=== PATIENT | male | born 1935 | race Caucasian/White ===

== ENCOUNTER 2018-08-13 13:44 | Observation (INO) | payer OTHER ==
[2018-08-13 13:57] VITALS: BMI 29.3
--- NOTE | 2018-08-13 14:43 | PDOC ---
History of Present Illness - General Chief Complaint: Weakness Stated Complaint: SENT BY PCP Time Seen by Provider: 08/13/18 14:41 - History of Present Illness Initial Comments: 08/13/18 15:59 83 year old man with a history of episodic dizziness, w/ carotid artery stenosis , GERD, HLD, HTN, Gout, BPH, Afib, choledocolithiasis, DM2, prior lumbosacral disc degeneration s/p surgical repair who presents from PCP with complaints of dizziness, weakness/ heaviness in the legs and arms ongoing for months but worse over the past week. Two nights ago the patient was unable to make it to the bathroom to urinate overnight, he states that his legs felt heavy and he "could not make it in time." The patient walks with a cane at baseline due to feelings of unsteadiness. He denies unilateral symptoms of weakness and states that both arms feel weak and both legs feel heavy. At bedside he admits to constipation and some weakness but denies headaches, dizziness, nausea, chest pain, shortness of breath, abdominal pain, dysuria, hematuria or diarrhea. Per daughter PCP Dalia was concerned by the story and had wanted to get a head CT. Patient has not taken his diltiazem, metoprolol, allopurinol for the past two days, because he did not feel that he needed them at the time. PCP: Dalia Meds: Glipizide 5mg, simvastatin 10mg, metoprolol bid, warfarin 2mg bid, diltiazem 180mg, allopurinol 100mg, colchicine Past History - Past Medical History Allergies/Adverse Reactions: Allergies Allergy/AdvReac Type Severity Reaction Status Date / Time No Known Allergies Allergy Verified 08/13/18 18:20 Home Medications: Ambulatory Orders Diltiazem Cd [Cardizem Cd -] 180 mg PO DAILY #30 cap.cd.24h 01/25/14 Allopurinol [Zyloprim -] 100 mg PO DAILY 02/25/14 Simvastatin [Zocor -] 10 mg PO HS 02/25/14 Warfarin Na [Coumadin -] 2 mg PO BID 02/25/14 Glipizide [Glucotrol -] 5 mg PO DAILY #30 tablet 11/18/14 Metoprolol Succinate [Toprol XL -] 25 mg PO BID 11/24/15 Prednisone 10 mg PO DAILY 11/24/15 Finasteride [Proscar] 5 mg PO DAILY 08/13/18 Fluticasone Prop 0.05% Nasal [Flonase -] 1 - 2 spray NS BID 08/13/18 Pioglitazone HCl 15 mg PO DAILY 08/13/18 Anemia: No Asthma: No Cancer: No Cardiac Disorders: Yes (A FIB) CVA: No COPD: No CHF: No Dementia: No Diabetes: Yes (Borderline) GI Disorders: Yes (gerd) Disorders: No HTN: Yes Hypercholesterolemia: Yes Liver Disease: No Seizures: No Thyroid Disease: No - Surgical History Abdominal Surgery: No Appendectomy: No Cardiac Surgery: Yes (Carotid) Cholecystectomy: Yes Lung Surgery: No Neurologic Surgery: Yes (laminectomy) Orthopedic Surgery: Yes (Back) - Suicide/Smoking/Psychosocial Hx Smoking Status: No Smoking History: Never smoked Have you smoked in the past 12 months: No Number of Cigarettes Smoked Daily: 0 If you are a former smoker, when did you quit?: 2016 Cigars Per Day: 1 Information on smoking cessation initiated: No 'Breaking Loose' booklet given: 01/16/14 Hx Alcohol Use: No Drug/Substance Use Hx: No Substance Use Type: None Hx Substance Use Treatment: No *Physical Exam - Vital Signs Last Vital Signs Temp Pulse Resp BP Pulse Ox 98.3 F 74 20 142/70 96 08/13/18 13:54 08/13/18 13:54 08/13/18 13:54 08/13/18 13:54 08/13/18 13:54 - Physical Exam Comments: 08/13/18 16:11 unremarkable exam walks with cane Moderate Sedation - Procedure Monitoring Vital Signs: Procedure Monitoring Vital Signs Temperature 98.3 F 08/13/18 13:54 Pulse Rate 74 08/13/18 13:54 Respiratory Rate 20 08/13/18 13:54 Blood Pressure 142/70 08/13/18 13:54 O2 Sat by Pulse Oximetry (%) 96 08/13/18 13:54 ED Treatment Course - LABORATORY CBC & Chemistry Diagram: 08/13/18 15:15 08/13/18 15:15 Medical Decision Making - Medical Decision Making 08/13/18 16:05 83 year old man with a history of episodic dizziness, w/ carotid artery stenosis , GERD, HLD, HTN, Gout, BPH, Afib, choledocolithiasis, DM2, prior lumbosacral disc degeneration s/p surgical repair who presents from PCP with complaints of dizziness, weakness/ heaviness in the legs and arms ongoing for months but worse over the past week. Two nights ago the patient was unable to make it to the bathroom to urinate overnight, he states that his legs felt heavy and he "could not make it in time." The patient walks with a cane at baseline due to feelings of unsteadiness. He denies unilateral symptoms of weakness and states that both arms feel weak and both legs feel heavy. ED Course: consider electrolyte abnormality vs infectious vs influenza r/o intracranial mass vs bleed however less likely as patient without neuro deficit on exam. However patient on coumadin and did not take his metoprolol, diltiazem and allopurinol for the past 2 days. 08/13/18 18:28 EKG: new T wave inversions in II, aVF, V1, V2, V3, V5, V6 prior EKG in 2014. cardiac enzymes added CXR: unremarkable labwork: INR 2.49, elevated BUN and Cr, prerenal UMU influenza negative Will need to admit for tele obs, for presyncope and new T wave inversions 08/13/18 20:26 trop negative, ua negative Patient admitted to medicine *DC/Admit/Observation/Transfer Diagnosis at time of Disposition: Pre-syncope, T wave inversion in EKG - Discharge Dispostion Condition at time of disposition: Fair Decision to Admit order: Yes - Referrals Referrals: Elmer Gómez MD [Primary Care Provider] - - Patient Instructions - Post Discharge Activity
[2018-08-13 15:27] LABS: BASO % 0.7 % (0-2.0); EOS % 2.5 % (0-4.5); HEMATOCRIT 45.4 % (35.4-49); HEMOGLOBIN 15.8 GM/dL (11.7-16.9); LYMPH % 15.3 % (8-40); MCH 31.5 pg (25.7-33.7); MCHC 34.9 g/dl (32.0-35.9); MEAN CELL VOLUME 90.4 fl (80-96); MEAN PLT VOLUME 8.9 fl (7.5-11.1); MONO % 9.8 % (3.8-10.2); NEUT % 71.7 % (42.8-82.8); PLATELET COUNT 120 K/MM3 (134-434); RBC 5.02 M/mm3 (4.00-5.60); RDW 15.1 % (11.9-15.9); WHITE BLOOD COUNT 10.2 K/mm3 (4.0-10.0)
[2018-08-13 15:55] LABS: ALBUMIN 3.1 g/dl (3.4-5.0); ALK PHOS 96 U/L (45-117); ANION GAP 6 MMOL/L (8-16); BILIRUBIN,TOTAL 1.5 mg/dL (0.2-1); BLOOD UREA NITROGEN 45 mg/dL (7-18); CALCIUM 8.7 mg/dL (8.5-10.1); CHLORIDE 105 mmol/L (98-107); CO2 30 mmol/L (21-32); CREATININE 2.1 mg/dL (0.55-1.3); GLUCOSE,RANDOM 83 mg/dL (74-106); POTASSIUM 3.5 mmol/L (3.5-5.1); SGOT/AST 18 U/L (15-37); SGPT/ALT 56 U/L (13-61); SODIUM 141 mmol/L (136-145)
--- NOTE | 2018-08-13 16:27 | PDOC ---
Attending Attestation - HPI HPI: 08/13/18 16:30 The patient is a 83 year old male with a significant medical history of episodic dizziness, w/ carotid artery stenosis, GERD, HLD, HTN, Gout, BPH, Afib , choledocolithiasis, DM2, prior lumbosacral disc degeneration s/p surgical repair who presents from PCP with complaints of dizziness, weakness/ heaviness in the legs and arms ongoing for months but worse over the past weeks. The patient walks with a cane at baseline due to feelings of unsteadiness. Secondarily, he reports increased urinary frequency and urgency. Per daughter PCP Dalia was concerned by the story and had wanted to get a head CT. Patient has not taken his diltiazem, metoprolol, allopurinol for the past two days, because he did not feel that he needed them at the time. He denies CP, SOB, palpitations. He denies dysuria. He denies any other symptoms. PCP: Dalia - Physicial Exam PE: 08/13/18 16:31 Constitutional: Awake, alert, oriented. No acute distress. Head: Normocephalic. Atraumatic Eyes: PERRL. EOMI. Conjunctivae are not pale. 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 Mucous membranes are moist and intact. Posterior pharynx without exudates or erythema. Uvula midline. Neck: Supple. Full ROM. No lymphadenopathy. Cardiovascular: Regular rate. Regular rhythm. S1, S2 regular. Distal pulses are 2+ and symmetric. Pulmonary/Chest: No evidence of respiratory distress. Clear to auscultation bilaterally No wheezing, rales or rhonchi. Abdominal: Soft and non-distended. There is no tenderness. No rebound, guarding or rigidity. No organomegaly. No palpable masses. Good bowel sounds. Back: No CVA tenderness. Musculoskeletal: No edema. No cyanosis. No clubbing. Full range of motion in all extremities. Nocalf tenderness. Radial/pedal pulses are intact and 2+ bilaterally Skin: (+) lumbar spine incision well healed. No erythema, fluctuance, warmth or tenderness.Skin is warm and dry. No petechiae. No purpura. Neurological: Alert and oriented to person, place, and time. Cranial nerves II -XII are grossly intact. Normal speech. 5/5 MS in upper and lower extremities. sensation intact. Able to hold lower extremities against gravity and resistance. Strength is grossly symmetric. No sensory deficits. Psychiatric: Good eye contact. Normal interaction, affect and behavior. <Lesley Sosa - Last Filed: 08/13/18 16:43> - Resident Resident Name: AnkitkacyChioma - ED Attending Attestation I have performed the following: I have examined & evaluated the patient, The case was reviewed & discussed with the resident, I agree w/resident's findings & plan, Exceptions are as noted - Medical Decision Making 08/13/18 16:26 I, Dr. Lianna Poe DO, attest that this document has been prepared under my direction and personally reviewed by me in its entirety. I further attest, that it accurately reflects all work, treatment, procedures and medical decision -making performed by me. 08/13/18 18:19 a/p: 83yo male with generalized weakness and b/l leg heaviness presents from Dr. Gómez for further eval -new ekg t wave inversions as compared to 2015 -neuro intact -no midline ttp in back -no signs of caude equina -urinary freq -will send labs, ua -will send trop given ekg changes and weakness -will need obs overnight for further eval 08/13/18 21:30 labs reviewed ua negative for uti will place in obs for further eval of generalized weakness resident discussed the case with SYMPHONY who accepts pt to service <Lianna Poe - Last Filed: 08/13/18 21:31> Heart Score/ECG Review - ECG Intrepretation Comment:: 08/13/18 18:18 sinus at 76, nl axis, t wave inversions II, III, avf, rbbb, t wave inversions V4 -6- abnl ekg <Lianna Poe - Last Filed: 08/13/18 21:31> Attestations - Attestations 08/13/18 16:32 Documentation prepared by Lesley Sosa, acting as spanish medical interpreter for Lianna Poe DO, <Lesley Sosa - Last Filed: 08/13/18 16:43>
[2018-08-13 16:39] LABS: PLATELET ESTIMATE SLT DECREASE
[2018-08-13 16:57] LABS: INR 2.49 (0.83-1.09); PROTHROMBIN TIME (PATIENT) 29.6 SEC (9.7-13.0)
[2018-08-13 17:10] LABS: ACTIVATED PTT 46.2 SECONDS (25.2-36.5)
[2018-08-13 19:52] LABS: URINE APPEARANCE SLCLOUDY; URINE BILIRUBIN NEGATIVE (<2.0 mg/dL); URINE COLOR DKYELLOW; URINE GLUCOSE (UA) NEGATIVE (NEGATIVE); URINE KETONE NEGATIVE (NEGATIVE); URINE LEUK ESTERASE NEGATIVE (NEGATIVE); URINE NITRITE NEGATIVE (NEGATIVE); URINE PROTEIN 2+ (NEGATIVE)
[2018-08-13 20:16] LABS: URINE MUCUS RARE
--- NOTE | 2018-08-13 21:44 | PN ---
Teaching Attending Note Name of Resident: Lexi Green ATTENDING PHYSICIAN STATEMENT I saw and evaluated the patient. I reviewed the resident's note and discussed the case with the resident. I agree with the resident's findings and plan as documented. SUBJECTIVE: Seen and examined; please refer to resident note for further historical documentation. Briefly, this is a 83 y/o male presenting with months of of LE heaviness that has been worsening somewhat over the past few weeks. Nothing makes it better or worse; not weak, persay, and no localizing neuro sx. Never happened before, no new meds, no trauma. He did have some associated incontinence at home but it was because his legs felt too heavy to get out of bed; negative rectal exam and he has no loss of bowel or bladder function. He has been compliant with his medications at home. CT head negative in the ER. Has not taken home meds in [address] Gómez spoke with ER. 10 sys ROS done and negative aside from HPI PMH reviewed(Afib, ETHAN, HTN, HLD, Gout, BPH, Afib, choledocholithiasis, DM, lumbosacral disease s/p repair) OBJECTIVE: VS, labs, imaging reviewed NAD, AAO, resting comfortably in bed. NIHSS 0. 5/5 b/l LE strength, 5/5 b/l UE strength, normal muscle tone, no issues with ROM. CN2-12 wnl, no issues with sensorium. RRR s1/2 no mgr Lungs CTAB w/ sym exp NT ND +BS CN2-12 wnl, no fnd Normal mood, appropriate behavior CT head without acute findings MRI lower spine pending EKG pending Labs show therapeutic INR, slight leukocytosis ASSESSMENT AND PLAN: Patient presents after being sent in by his PCP for b/l leg heaviness x3 weeks, knee pain on and off for years. 1) B/L Leg Heaviness and knee pain -Unclear etiology; procedure hx reviewed. Can check MRI lower spine due to the aforementioned with the prior fixation, as well as check B12, ESR -Checking vascular studies to r/o peripheral arterial disease -If said workup is negative, consider potential physiatry or neuro consultation inpt vs. outpt. PT has been ordered, Fall precautions. 2) Afib -Nonacute; continue home medications and monitor INR. 3) Hx PV Th 4) Hx SEGUN 5) HTN -Continue; monitor BP 6) HLD -Continue home med 7) DM -Hold PO; SSI 8) BPH -Continue finasteride 9) Hx ETHAN -Noted; checking for LE vascular disease given presenting sx and history 11) Elevated Bili -Has been high in the past; trend. Consider RUQ US if remains elevated compared to OP records 12) T-wave changes -Completely asx in terms of cardiac sx with negative troponins. Furthermore this is a high risk man with multiple comorbidities and he has reasons to have had his EKG have changes over the past several years. We don't have any recent studies. We will alert his PCP to these changes and compare them with any old records from the office when they become available in the morning. If these represent significant changes from recent study then it would be reasonable to consult cardiology 13) UMU on CKD vs. Worsening CKD -Cr is slightly higher than it was in the past but the last check was 2014. Monitor BMP and UOP. Consider gentle hydration overnight FENA -PO fluids -PRN replete -Cardiac Diet -BR w/ BRP until MRI then as tolerated with PT consult
--- NOTE | 2018-08-13 21:49 | HP ---
CHIEF COMPLAINT: leg weakness PCP: Dr. Gómez HISTORY OF PRESENT ILLNESS: 83 y/o male with PMH of HTN, HLD, GERD, Afib, BPH, carotid artery stenosis, borderline DM, presents to the ED with a one week history of progressive weakness/heaviness in his legs. He states that his legs have felt very heavy and weak, almost the point where he was not able to get out of bed to use the bathroom that he went to the bathroom in his bed. he denies any numbness or tingling with his legs. he denies any recent travel or recent illnesses. patient states that he uses a walker only when he needs to and states that he felt he had been using it more frequently in the past week. ER course was notable for: (1) + orthostatic vital signs : laying 148/80; sitting 114/80 (2)CR : 2.1- previous was 1.8 (3) EKG new t wave inversions in 2,3, avf v3-v6 (previous EKG was from 2013 not showing these findings) Recent Travel: denies PAST MEDICAL HISTORY: see above PAST SURGICAL HISTORY: laminectomy; CEA Social History: Smoking: quit cigarette smoking 10 years ago; chews cigars daily Alcohol: social alcohol use Drugs: denies Family History: denies Allergies No Known Allergies Allergy (Verified 08/13/18 18:20) HOME MEDICATIONS: Home Medications Medication Instructions Recorded Diltiazem Cd [Cardizem Cd -] 180 mg PO DAILY #30 cap.cd.24h 01/25/14 Allopurinol [Zyloprim -] 100 mg PO DAILY 02/25/14 Simvastatin [Zocor -] 10 mg PO HS 02/25/14 Warfarin Na [Coumadin -] 2 mg PO BID 02/25/14 Glipizide [Glucotrol -] 5 mg PO DAILY #30 tablet 11/18/14 Metoprolol Succinate [Toprol XL -] 25 mg PO BID 11/24/15 Prednisone 10 mg PO DAILY 11/24/15 Finasteride [Proscar] 5 mg PO DAILY 08/13/18 Fluticasone Prop 0.05% Nasal 1 - 2 spray NS BID 08/13/18 [Flonase -] Pioglitazone HCl 15 mg PO DAILY 08/13/18 REVIEW OF SYSTEMS CONSTITUTIONAL: Present: generalized weakness, Absent: fever, chills, diaphoresis malaise, loss of appetite, weight change HEENT: Absent: rhinorrhea, nasal congestion, throat pain, throat swelling, difficulty swallowing, mouth swelling, ear pain, eye pain, visual changes CARDIOVASCULAR: Absent: chest pain, syncope, palpitations, irregular heart rate, lightheadedness , peripheral edema RESPIRATORY: Absent: cough, shortness of breath, dyspnea with exertion, orthopnea, wheezing, stridor, hemoptysis GASTROINTESTINAL: Absent: abdominal pain, abdominal distension, nausea, vomiting, diarrhea, constipation, melena, hematochezia GENITOURINARY: Absent: dysuria, frequency, urgency, hesitancy, hematuria, flank pain, genital pain MUSCULOSKELETAL: Absent: myalgia, arthralgia, joint swelling, back pain, neck pain SKIN: Absent: rash, itching, pallor HEMATOLOGIC/IMMUNOLOGIC: Absent: easy bleeding, easy bruising, lymphadenopathy, frequent infections ENDOCRINE: Absent: unexplained weight gain, unexplained weight loss, heat intolerance, cold intolerance NEUROLOGIC: Absent: headache, focal weakness or paresthesias, dizziness, unsteady gait, seizure, mental status changes, bladder or bowel incontinence PSYCHIATRIC: Absent: anxiety, depression, suicidal or homicidal ideation, hallucinations. PHYSICAL EXAMINATION Vital Signs - 24 hr 08/13/18 08/13/18 13:54 19:01 Temperature 98.3 F 98.0 F Pulse Rate 74 Pulse Rate [ 84 Right] Respiratory 20 18 Rate Blood Pressure 142/70 Blood Pressure 164/99 [Left Arm] O2 Sat by Pulse 96 99 Oximetry (%) GENERAL: Awake, alert, and fully oriented, in no acute distress. EYES:EOMI; PEERLA; no scleral icterus NECK: no JVD, no lymphadneopathy LUNGS: CTA B/L; no rales, rhonchi or wheezing HEART: Regular rate and rhythm, normal S1 and S2 without murmur, rub or gallop. ABDOMEN: Soft, nontender, not distended, normoactive bowel sounds, no guarding, no rebound, no masses. No hepatomegaly or splenomegaly. MUSCULOSKELETAL: Normal range of motion at all joints. No bony deformities or tenderness. No CVA tenderness. EXTREMITIES: cold B/L ; no edema, + posterior tibialis pulses, weakened dorsalis pedis pulses NEUROLOGICAL: Cranial nerves II-XII intact. Normal speech. Normal gait 5/5 strength in B/L upper and lower extremitites; sensation intact B/L; reflexes intact B/L PSYCHIATRIC: Cooperative. Good eye contact. Appropriate mood and affect. SKIN: Warm, dry, normal turgor, no rashes or lesions noted, normal capillary refill. Laboratory Results - last 24 hr 08/13/18 08/13/18 08/13/18 15:15 15:15 16:14 WBC 10.2 H RBC 5.02 Hgb 15.8 Hct 45.4 D MCV 90.4 MCH 31.5 MCHC 34.9 RDW 15.1 Plt Count 120 L D MPV 8.9 Absolute Neuts (auto) 7.3 Neutrophils % 71.7 Lymphocytes % 15.3 D Monocytes % 9.8 Eosinophils % 2.5 Basophils % 0.7 Nucleated RBC % 1 H Platelet Estimate Slt decrease Platelet Comment PT with INR INR PTT (Actin FS) Sodium 141 Potassium 3.5 Chloride 105 Carbon Dioxide 30 Anion Gap 6 L BUN 45 H Creatinine 2.1 H Creat Clearance w eGFR 30.17 Random Glucose 83 Calcium 8.7 Total Bilirubin 1.5 H AST 18 ALT 56 Alkaline Phosphatase 96 Troponin I 0.02 Total Protein 6.0 L Albumin 3.1 L Urine Color Urine Appearance Urine pH Ur Specific [place] Urine Protein Urine Glucose (UA) Urine Ketones Urine Blood Urine Nitrite Urine Bilirubin Urine Urobilinogen Ur Leukocyte Esterase Urine WBC (Auto) Urine RBC (Auto) Urine Mucus Influenza A (Rapid) Negative Influenza B (Rapid) Negative 08/13/18 08/13/18 16:24 16:30 WBC RBC Hgb Hct MCV MCH MCHC RDW Plt Count MPV Absolute Neuts (auto) Neutrophils % Lymphocytes % Monocytes % Eosinophils % Basophils % Nucleated RBC % Platelet Estimate Platelet Comment PT with INR 29.60 H INR 2.49 H PTT (Actin FS) 46.2 H Sodium Potassium Chloride Carbon Dioxide Anion Gap BUN Creatinine Creat Clearance w eGFR Random Glucose Calcium Total Bilirubin AST ALT Alkaline Phosphatase Troponin I Total Protein Albumin Urine Color Dkyellow Urine Appearance Slcloudy Urine pH 5.0 Ur Specific [place] 1.018 Urine Protein 2+ H Urine Glucose (UA) Negative Urine Ketones Negative Urine Blood 2+ H Urine Nitrite Negative Urine Bilirubin Negative Urine Urobilinogen 2.0 Ur Leukocyte Esterase Negative Urine WBC (Auto) 2 Urine RBC (Auto) 19 Urine Mucus Rare Influenza A (Rapid) Influenza B (Rapid) ASSESSMENT/PLAN: 83 y/o male with PMH of afib, DM, HTN, HLD, BPH, gout, carotid artery stenosis who presents to the ED with a 2 week history of heaviness and weakness in his legs #Lower extremity weakness etiology seems less neurological given findings on exam and possibly vascular related -duplex ultrasound ordered -FATEMEH -MRI for morning- need to confirm first if patients metal hardware in back are MRI compatible -Dr Mobley consulted -may need vascular consult depending on duplex results -TSH, B12, folate ordered -PT eval #Afib -patient on Coumadin 2mg #T wave inversions on EKG previous EKG from 2014 did not show these T wave inversions; unclear how long patient has had them -first trop negative; will continue to trend -cardiology consulted #Possible UMU on CKD -previous Cr was 1.8; unclear what his baseline is -monitor electrolytes -consider nephro consult? #HTN -c/w home medications #HLD -c/w home medications #DM -holding home regimen -ISS -BGMS ACHS #BPH -c/w home medications #Gout -c/w allopurinol F/E/N LR @42mls/hr monitor electrolytes cardiac diet DVT PPX: heparin Problem List - Problem (1) Pre-syncope Code(s): R55 - SYNCOPE AND COLLAPSE (2) T wave inversion in EKG Code(s): R94.31 - ABNORMAL ELECTROCARDIOGRAM [ECG] [EKG] Visit type - Emergency Visit Emergency Visit: Yes ED Registration Date: 08/13/18 Care time: The patient presented to the Emergency Department on the above date and was hospitalized for further evaluation of their emergent condition. - New Patient This patient is new to me today: Yes Date on this admission: 08/14/18 - Critical Care Critical Care patient: No
[2018-08-13] MEDS ORDERED: INSULIN REGULAR HUMAN 100 UNITS/ML *VIAL ONE (23:20)
[2018-08-13] MEDS: INSULIN SLIDING SCALE (NOVOLOG) 1 VIAL SQ SCH (23:22)
[2018-08-14] MEDS ORDERED: LACTATED RINGERS SOLUTION 1,000 ML/1,000 ML INFUS.BAG IV SCH (01:15)
[2018-08-14] MEDS ORDERED: HEPARIN NA (PORCINE) 5,000 UNITS/ML 1ML VIAL ONE ×2 (06:50→14:06)
[2018-08-14] MEDS: HEPARIN NA (PORCINE) 5,000 UNITS/ML 1ML VIAL SQ SCH ×3 (06:54→21:31)
[2018-08-14 07:00] LABS: BASO % 0.4 % (0-2.0); EOS % 1.6 % (0-4.5); HEMATOCRIT 44.1 % (35.4-49); HEMOGLOBIN 15.3 GM/dL (11.7-16.9); LYMPH % 14.1 % (8-40); MCH 31.2 pg (25.7-33.7); MCHC 34.6 g/dl (32.0-35.9); MEAN PLT VOLUME 9.4 fl (7.5-11.1); MONO % 9.1 % (3.8-10.2); NEUT % 74.8 % (42.8-82.8); PLATELET COUNT 134 K/MM3 (134-434); RDW 15.7 % (11.9-15.9); WHITE BLOOD COUNT 9.3 K/mm3 (4.0-10.0)
[2018-08-14] MEDS: INSULIN SLIDING SCALE (NOVOLOG) 1 VIAL SQ SCH ×4 (07:05→21:32)
[2018-08-14 07:39] LABS: ALBUMIN 2.8 g/dl (3.4-5.0); ALK PHOS 90 U/L (45-117); ANION GAP 8 MMOL/L (8-16); BILIRUBIN,TOTAL 1.3 mg/dL (0.2-1); BLOOD UREA NITROGEN 44 mg/dL (7-18); CALCIUM 7.8 mg/dL (8.5-10.1); CHLORIDE 106 mmol/L (98-107); CO2 27 mmol/L (21-32); CREATININE 1.8 mg/dL (0.55-1.3); GLUCOSE,RANDOM 66 mg/dL (74-106); MAGNESIUM 2.2 mg/dL (1.8-2.4); PHOSPHOROUS 3.7 mg/dL (2.5-4.9); POTASSIUM 3.3 mmol/L (3.5-5.1); SGOT/AST 21 U/L (15-37); SGPT/ALT 46 U/L (13-61); SODIUM 142 mmol/L (136-145); TOT PROT 5.7 g/dl (6.4-8.2)
--- NOTE | 2018-08-14 09:29 | CONSULT ---
Consult - text type - Consultation Consultation Note: Neurology CHIEF COMPLAINT: leg weakness PCP: Dr. Gómez HISTORY OF PRESENT ILLNESS: 83 y/o male with PMH of HTN, HLD, GERD, Afib, BPH, carotid artery stenosis, borderline DM, presents to the ED with a one week history of progressive weakness/heaviness in his legs. He states that his legs have felt very heavy and weak, almost the point where he was not able to get out of bed to use the bathroom that he went to the bathroom in his bed. he denies any numbness or tingling with his legs. he denies any recent travel or recent illnesses. patient states that he uses a walker only when he needs to and states that he felt he had been using it more frequently in the past week. CT head completed and without acute changes. Discussed with Dr. Giraldo, will rule out CVA, ordered MRI brain. MRI L spine also already ordered. Recent Travel: denies PAST MEDICAL HISTORY: see above PAST SURGICAL HISTORY: laminectomy; CEA Social History: Smoking: quit cigarette smoking 10 years ago; chews cigars daily Alcohol: social alcohol use Drugs: denies Family History: denies Allergies No Known Allergies Allergy (Verified 08/13/18 18:20) HOME MEDICATIONS: Home Medications Medication Instructions Recorded Diltiazem Cd [Cardizem Cd -] 180 mg PO DAILY #30 cap.cd.24h 01/25/14 Allopurinol [Zyloprim -] 100 mg PO DAILY 02/25/14 Simvastatin [Zocor -] 10 mg PO HS 02/25/14 Warfarin Na [Coumadin -] 2 mg PO BID 02/25/14 Glipizide [Glucotrol -] 5 mg PO DAILY #30 tablet 11/18/14 Metoprolol Succinate [Toprol XL -] 25 mg PO BID 11/24/15 Prednisone 10 mg PO DAILY 11/24/15 Finasteride [Proscar] 5 mg PO DAILY 08/13/18 Fluticasone Prop 0.05% Nasal 1 - 2 spray NS BID 08/13/18 [Flonase -] Pioglitazone HCl 15 mg PO DAILY 08/13/18 REVIEW OF SYSTEMS CONSTITUTIONAL: Present: generalized weakness, Absent: fever, chills, diaphoresis malaise, loss of appetite, weight change HEENT: Absent: rhinorrhea, nasal congestion, throat pain, throat swelling, difficulty swallowing, mouth swelling, ear pain, eye pain, visual changes CARDIOVASCULAR: Absent: chest pain, syncope, palpitations, irregular heart rate, lightheadedness , peripheral edema RESPIRATORY: Absent: cough, shortness of breath, dyspnea with exertion, orthopnea, wheezing, stridor, hemoptysis GASTROINTESTINAL: Absent: abdominal pain, abdominal distension, nausea, vomiting, diarrhea, constipation, melena, hematochezia GENITOURINARY: Absent: dysuria, frequency, urgency, hesitancy, hematuria, flank pain, genital pain MUSCULOSKELETAL: Absent: myalgia, arthralgia, joint swelling, back pain, neck pain SKIN: Absent: rash, itching, pallor HEMATOLOGIC/IMMUNOLOGIC: Absent: easy bleeding, easy bruising, lymphadenopathy, frequent infections ENDOCRINE: Absent: unexplained weight gain, unexplained weight loss, heat intolerance, cold intolerance NEUROLOGIC: Absent: headache, focal weakness or paresthesias, dizziness, unsteady gait, seizure, mental status changes, bladder or bowel incontinence PSYCHIATRIC: Absent: anxiety, depression, suicidal or homicidal ideation, hallucinations. PHYSICAL EXAMINATION Vital Signs Period Temp Pulse Resp BP Sys/Seaman Pulse Ox Last 24 Hr 98.0 F-98.3 F 74-84 18-20 142-164/70-99 96-99 GENERAL: Awake, alert, and fully oriented, in no acute distress. EYES:EOMI; PEERLA; no scleral icterus NECK: no JVD, no lymphadneopathy LUNGS: CTA B/L; no rales, rhonchi or wheezing HEART: Regular rate and rhythm, normal S1 and S2 without murmur, rub or gallop. ABDOMEN: Soft, nontender, not distended, normoactive bowel sounds, no guarding, no rebound, no masses. No hepatomegaly or splenomegaly. MUSCULOSKELETAL: Normal range of motion at all joints. No bony deformities or tenderness. No CVA tenderness. EXTREMITIES: cold B/L ; no edema, + posterior tibialis pulses, weakened dorsalis pedis pulses NEUROLOGICAL: Cranial nerves II-XII intact. Normal speech. Normal gait 5/5 strength in B/L upper, 5-/5 in lower extremitites; sensation intact B/L; reflexes intact B/L PSYCHIATRIC: Cooperative. Good eye contact. Appropriate mood and affect. SKIN: Warm, dry, normal turgor, no rashes or lesions noted, normal capillary refill. Laboratory Results - last 24 hr 08/13/18 08/13/18 08/13/18 15:15 15:15 16:14 WBC 10.2 H RBC 5.02 Hgb 15.8 Hct 45.4 D MCV 90.4 MCH 31.5 MCHC 34.9 RDW 15.1 Plt Count 120 L D MPV 8.9 Absolute Neuts (auto) 7.3 Neutrophils % 71.7 Lymphocytes % 15.3 D Monocytes % 9.8 Eosinophils % 2.5 Basophils % 0.7 Nucleated RBC % 1 H Platelet Estimate Slt decrease Platelet Comment PT with INR INR PTT (Actin FS) Sodium 141 Potassium 3.5 Chloride 105 Carbon Dioxide 30 Anion Gap 6 L BUN 45 H Creatinine 2.1 H Creat Clearance w eGFR 30.17 Random Glucose 83 Calcium 8.7 Total Bilirubin 1.5 H AST 18 ALT 56 Alkaline Phosphatase 96 Troponin I 0.02 Total Protein 6.0 L Albumin 3.1 L Urine Color Urine Appearance Urine pH Ur Specific [place] Urine Protein Urine Glucose (UA) Urine Ketones Urine Blood Urine Nitrite Urine Bilirubin Urine Urobilinogen Ur Leukocyte Esterase Urine WBC (Auto) Urine RBC (Auto) Urine Mucus Influenza A (Rapid) Negative Influenza B (Rapid) Negative 08/13/18 08/13/18 16:24 16:30 WBC RBC Hgb Hct MCV MCH MCHC RDW Plt Count MPV Absolute Neuts (auto) Neutrophils % Lymphocytes % Monocytes % Eosinophils % Basophils % Nucleated RBC % Platelet Estimate Platelet Comment PT with INR 29.60 H INR 2.49 H PTT (Actin FS) 46.2 H Sodium Potassium Chloride Carbon Dioxide Anion Gap BUN Creatinine Creat Clearance w eGFR Random Glucose Calcium Total Bilirubin AST ALT Alkaline Phosphatase Troponin I Total Protein Albumin Urine Color Dkyellow Urine Appearance Slcloudy Urine pH 5.0 Ur Specific [place] 1.018 Urine Protein 2+ H Urine Glucose (UA) Negative Urine Ketones Negative Urine Blood 2+ H Urine Nitrite Negative Urine Bilirubin Negative Urine Urobilinogen 2.0 Ur Leukocyte Esterase Negative Urine WBC (Auto) 2 Urine RBC (Auto) 19 Urine Mucus Rare Influenza A (Rapid) Influenza B (Rapid) ASSESSMENT/PLAN: 83 y/o male with PMH of HTN, HLD, GERD, Afib, BPH, carotid artery stenosis, borderline DM, presents to the ED with a one week history of progressive weakness/heaviness in his legs. He states that his legs have felt very heavy and weak, almost the point where he was not able to get out of bed to use the bathroom that he went to the bathroom in his bed. he denies any numbness or tingling with his legs. he denies any recent travel or recent illnesses. patient states that he uses a walker only when he needs to and states that he felt he had been using it more frequently in the past week. CT head completed and without acute changes. Discussed with Dr. Giraldo, will rule out CVA, ordered MRI brain. MRI L spine also already ordered. Vascular workup pending, in agreement with this. Monitor Afib, continue coumadin, maintain normotensive range. Monitor DM, goal euglycemic range. Physical therapy as tolerated, fall precautions.
[2018-08-14 09:57] LABS: ACANTHOCYTES 0; ANISOCYTOSIS 0; HELMET CELLS 0; HOWELL-JOLLY BODIES 0; MACROCYTOSIS 0; OVALOCYTE 0; PLATELET ESTIMATE DECREASED; ROULEAU 0; SICKELED CELLS 0; TARGET CELLS 0; TEAR DROP CELLS 0; TOXIC GRANULATION 0
[2018-08-14] MEDS ORDERED: predniSONE 10 MG TABLET (UD) PO SCH (10:00)
[2018-08-14] MEDS ORDERED: WARFARIN NA 2 MG TABLET (UD) PO SCH ×2 (10:00→18:00)
[2018-08-14] MEDS ORDERED: POTASSIUM CHLORIDE ORAL LIQUID 20 MEQ/15 ML ONE (10:46)
[2018-08-14] MEDS: metoPROLOL SUCCINATE 25 MG TAB.SR.24H (FP) PO SCH ×2 (10:52→21:28)
[2018-08-14] MEDS: POTASSIUM CHLORIDE ORAL LIQUID 20 MEQ/15 ML PO SCH ×2 (10:52→21:28)
[2018-08-14] MEDS: FINASTERIDE 5 MG TABLET (FP) PO SCH (10:52)
[2018-08-14] MEDS: ALLOPURINOL 100 MG TABLET (FP) PO SCH (10:52)
--- NOTE | 2018-08-14 12:09 | PN ---
Progress Note, Physician Chief Complaint: Pt lying in stretcher in no acute distress. reports he feels better. no longer has the extremity heaviness he had. Denies any chest pain, sob, n/v/d - Current Medication List Current Medications: Active Medications Allopurinol (Zyloprim -) 100 mg PO DAILY [facility] Last Admin: 08/14/18 10:52 Dose: 100 mg Atorvastatin Calcium (Lipitor -) 10 mg PO [facility] Diltiazem HCl (Cardizem Cd -) 180 mg PO DAILY [facility] Last Admin: 08/14/18 10:52 Dose: 180 mg Finasteride (Proscar -) 5 mg PO DAILY [facility] Last Admin: 08/14/18 10:52 Dose: 5 mg Heparin Sodium (Porcine) (Heparin -) 5,000 unit SQ TID [facility] Last Admin: 08/14/18 06:54 Dose: 5,000 unit Lactated Ringer's (Lactated Ringers Solution) 1,000 ml in 1,000 mls @ 42 mls/ hr IV ASDIR [facility] Last Admin: 08/14/18 01:35 Dose: 42 mls/hr Insulin Aspart (Novolog Vial Sliding Scale -) 1 vial SQ [facility]; Protocol Last Admin: 08/14/18 07:05 Dose: Not Given Metoprolol Succinate (Toprol Xl -) 25 mg PO BID [facility] Last Admin: 08/14/18 10:52 Dose: 25 mg Potassium Chloride (Potassium Chloride Oral Liquid) 40 meq PO BID [facility] Stop: 08/15/18 10:01 Last Admin: 08/14/18 10:52 Dose: 40 meq Warfarin Sodium (Coumadin -) 4 mg PO DAILY@1800 [facility] - Objective Vital Signs: Vital Signs Temperature 98.0 F 08/13/18 19:01 Pulse Rate 86 08/14/18 11:25 Respiratory Rate 18 08/14/18 11:25 Blood Pressure 137/81 08/14/18 11:25 O2 Sat by Pulse Oximetry (%) 97 08/14/18 11:25 Constitutional: Yes: Well Nourished, No Distress, Calm Cardiovascular: Yes: Regular Rate and Rhythm Respiratory: Yes: WNL, Regular, CTA Bilaterally. No: Accessory Muscle Use, SOB , Tachypnea, Wheezes Gastrointestinal: Yes: WNL, Normal Bowel Sounds, Soft. No: Distention, Tenderness Genitourinary: Yes: WNL Extremities: Yes: WNL Edema: No Neurological: Yes: WNL, Alert, Oriented. No: Facial Droop, Lethargy, Tremors, Weakness Psychiatric: Yes: WNL, Alert, Oriented Labs: CBC, BMP 08/14/18 05:30 08/14/18 05:30 INR, PTT INR 2.49 (0.83-1.09) H 08/13/18 16:24 Problem List - Problems (1) Leg heaviness Assessment/Plan: presented w/ b/l leg/arm heaviness on admission currently resolved per pt MRI brain/lumbar spine pending d/l duplex le neg for dvt neurology following nsgy to see pt as well considering hx of laminectomy in the past Code(s): R29.898 - OTH SYMPTOMS AND SIGNS INVOLVING THE MUSCULOSKELETAL SYSTEM (2) Afib Assessment/Plan: controlled continue metoprolol/coumadin inr therapeutic Code(s): I48.91 - UNSPECIFIED ATRIAL FIBRILLATION Qualifiers: Atrial fibrillation type: chronic Qualified Code(s): I48.2 - Chronic atrial fibrillation (3) Diabetes Assessment/Plan: controlled bgm insulin sliding scale while inpt oral meds held Code(s): E11.9 - TYPE 2 DIABETES MELLITUS WITHOUT COMPLICATIONS Qualifiers: Diabetes mellitus type: type 2 Diabetes mellitus group home insulin use: without intermodal truck driver use Diabetes mellitus complication status: with kidney complications Diabetes mellitus complication detail: with chronic kidney disease Chronic kidney disease stage: stage 3 (moderate) Qualified Code(s): E11.22 - Type 2 diabetes mellitus with diabetic chronic kidney disease; N18.3 - Chronic kidney disease, stage 3 (moderate) (4) Chronic kidney disease Assessment/Plan: stable Code(s): N18.9 - CHRONIC KIDNEY DISEASE, UNSPECIFIED Qualifiers: Chronic kidney disease stage: stage 3 (moderate) Qualified Code(s): N18.3 - Chronic kidney disease, stage 3 (moderate) (5) Gout Assessment/Plan: stable continue allopurinol Code(s): M10.9 - GOUT, UNSPECIFIED Qualifiers: Chronicity: chronic (6) Hypertension Assessment/Plan: controlled continue home meds Code(s): I10 - ESSENTIAL (PRIMARY) HYPERTENSION Qualifiers: Hypertension type: essential hypertension Qualified Code(s): I10 - Essential (primary) hypertension (7) HLD (hyperlipidemia) Assessment/Plan: chronic continue statin lipid panel ordered Code(s): E78.5 - HYPERLIPIDEMIA, UNSPECIFIED Qualifiers: Hyperlipidemia type: pure hypercholesterolemia Qualified Code(s): E78.00 - Pure hypercholesterolemia, unspecified; E78.0 - Pure hypercholesterolemia (8) Abnormal liver function test Assessment/Plan: tbilli elevation noted abd exam benign outpt work up/monitoring Code(s): R79.89 - OTHER SPECIFIED ABNORMAL FINDINGS OF BLOOD CHEMISTRY (9) Carotid artery stenosis Assessment/Plan: carotid duplex- 80-99% left ics stenosis vascular consulted Code(s): I65.29 - OCCLUSION AND STENOSIS OF UNSPECIFIED CAROTID ARTERY Qualifiers: Laterality: bilateral Qualified Code(s): I65.23 - Occlusion and stenosis of bilateral carotid arteries (10) Hypokalemia Assessment/Plan: repleted today monitor bmp Code(s): E87.6 - HYPOKALEMIA
[2018-08-14] MEDS ORDERED: INSULIN REGULAR HUMAN 100 UNITS/ML *VIAL ONE (13:05)
--- NOTE | 2018-08-14 13:23 | EKG ---
Test Reason : Blood Pressure : / mmHG Vent. Rate : 076 BPM Atrial Rate : 076 BPM P-R Int : 160 ms QRS Dur : 126 ms QT Int : 450 ms P-R-T Axes : 050 007 -41 degrees QTc Int : 506 ms NORMAL SINUS RHYTHM POSSIBLE LEFT ATRIAL ENLARGEMENT RIGHT BUNDLE BRANCH BLOCK INFERIOR INFARCT , AGE UNDETERMINED ABNORMAL ECG WHEN COMPARED WITH ECG OF 15-NOV-2014 11:29, PREMATURE ATRIAL COMPLEXES ARE NO LONGER PRESENT INFERIOR INFARCT IS NOW PRESENT T WAVE INVERSION MORE EVIDENT IN INFERIOR LEADS T WAVE INVERSION NOW EVIDENT IN ANTERIOR LEADS Confirmed by ANDRZEJ ZAMORANO, ITZ ([id number]) on 08/14/2018 1:23:22 PM Referred By: Confirmed By:ITZ DONNELLY MD
--- NOTE | 2018-08-14 14:33 | CONSULT ---
Consult - text type - Consultation Consultation Note: NEUROSURGERY CONSULTATION Jeffrey France is an 83 year old male who has a long history of back pain dating back to 2003. He has had an instrumented fusion several years ago in [place] and has generally done well. He presents with a several day history of recent difficulty walking due to pain. He is better at this time due to the medications he was given. Imaging with MRI is planned and I will review options with him once this is available.
--- NOTE | 2018-08-14 20:18 | PN ---
Progress Note (short form) - Note Progress Note: Patient has been followed by Dr. Grant Falk for carotid artery in the past. Await MRI's Urine: +RBC's; Hx BPH PSA and repeat urine ordered.
[2018-08-14] MEDS ORDERED: ATORVASTATIN CA 10 MG TABLET (FP) PO SCH (22:00)
[2018-08-14 23:09] LABS: URINE APPEARANCE CLEAR; URINE BILIRUBIN NEGATIVE (<2.0 mg/dL); URINE COLOR YELLOW; URINE GLUCOSE (UA) NEGATIVE (NEGATIVE); URINE KETONE NEGATIVE (NEGATIVE); URINE LEUK ESTERASE NEGATIVE (NEGATIVE); URINE NITRITE NEGATIVE (NEGATIVE); URINE PROTEIN 1+ (NEGATIVE); URINE UROBILINOGEN NEGATIVE mg/dL (0.2-1.0)
[2018-08-15] MEDS: HEPARIN NA (PORCINE) 5,000 UNITS/ML 1ML VIAL SQ SCH (06:20)
[2018-08-15] MEDS: INSULIN SLIDING SCALE (NOVOLOG) 1 VIAL SQ SCH ×3 (06:21→16:40)
[2018-08-15 07:01] LABS: BASO % 0.5 % (0-2.0); EOS % 4.2 % (0-4.5); HEMATOCRIT 39.7 % (35.4-49); HEMOGLOBIN 13.8 GM/dL (11.7-16.9); LYMPH % 31.2 % (8-40); MCH 31.4 pg (25.7-33.7); MCHC 34.8 g/dl (32.0-35.9); MEAN CELL VOLUME 90.3 fl (80-96); MEAN PLT VOLUME 9.1 fl (7.5-11.1); MONO % 7.3 % (3.8-10.2); NEUT % 56.8 % (42.8-82.8); PLATELET COUNT 134 K/MM3 (134-434); RDW 15.7 % (11.9-15.9); WHITE BLOOD COUNT 7.4 K/mm3 (4.0-10.0)
[2018-08-15 07:25] LABS: ALBUMIN 2.8 g/dl (3.4-5.0); ALK PHOS 85 U/L (45-117); ANION GAP 6 MMOL/L (8-16); BILIRUBIN,TOTAL 0.8 mg/dL (0.2-1); BLOOD UREA NITROGEN 37 mg/dL (7-18); CALCIUM 7.8 mg/dL (8.5-10.1); CHLORIDE 108 mmol/L (98-107); CO2 28 mmol/L (21-32); CREATININE 1.8 mg/dL (0.55-1.3); GLUCOSE,RANDOM 100 mg/dL (74-106); POTASSIUM 4.2 mmol/L (3.5-5.1); SGOT/AST 16 U/L (15-37); SGPT/ALT 37 U/L (13-61); SODIUM 141 mmol/L (136-145); TOT PROT 5.5 g/dl (6.4-8.2)
--- NOTE | 2018-08-15 08:28 | PN ---
Progress Note, Physician Chief Complaint: Mr France is without complaint. Denies cp, sob, n/v. Walking without difficulty today. - Current Medication List Current Medications: Active Medications Allopurinol (Zyloprim -) 100 mg PO DAILY [facility] Last Admin: 08/14/18 10:52 Dose: 100 mg Atorvastatin Calcium (Lipitor -) 10 mg PO HS [facility] Last Admin: 08/14/18 21:28 Dose: 10 mg Diltiazem HCl (Cardizem Cd -) 180 mg PO DAILY [facility] Last Admin: 08/14/18 10:52 Dose: 180 mg Finasteride (Proscar -) 5 mg PO DAILY [facility] Last Admin: 08/14/18 10:52 Dose: 5 mg Insulin Aspart (Novolog Vial Sliding Scale -) 1 vial SQ [facility]; Protocol Last Admin: 08/15/18 06:21 Dose: Not Given Metoprolol Succinate (Toprol Xl -) 25 mg PO BID [facility] Last Admin: 08/14/18 21:28 Dose: 25 mg Potassium Chloride (Potassium Chloride Oral Liquid) 40 meq PO BID [facility] Stop: 08/15/18 10:01 Last Admin: 08/14/18 21:28 Dose: 40 meq Warfarin Sodium (Coumadin -) 4 mg PO DAILY@1800 [facility] Last Admin: 08/14/18 18:58 Dose: 4 mg - Objective Vital Signs: Vital Signs Temperature 36.2 C L 08/15/18 05:44 Pulse Rate 67 08/15/18 05:44 Respiratory Rate 20 08/15/18 05:44 Blood Pressure 148/93 08/15/18 05:44 O2 Sat by Pulse Oximetry (%) 96 08/14/18 20:27 Constitutional: Yes: Well Nourished, No Distress, Calm Cardiovascular: Yes: Regular Rate and Rhythm. No: Gallop, Murmur, Rub Respiratory: Yes: Regular, CTA Bilaterally. No: Rales, Rhonchi, Wheezes Gastrointestinal: Yes: Normal Bowel Sounds, Soft. No: Distention, Tenderness Extremities: Yes: WNL Edema: No Labs: CBC, BMP 08/15/18 05:30 08/15/18 05:30 INR, PTT INR 2.49 (0.83-1.09) H 08/13/18 16:24 Assessment/Plan (1) Leg heaviness Assessment/Plan: -patient says he is feeling back to normal -ambulating without difficulty -awaiting MRI reads -if normal, possible discharge today Code(s): R29.898 - OTH SYMPTOMS AND SIGNS INVOLVING THE MUSCULOSKELETAL SYSTEM (2) Afib Assessment/Plan: -controlled -continue current regimen Code(s): I48.91 - UNSPECIFIED ATRIAL FIBRILLATION Qualifiers: Atrial fibrillation type: chronic Qualified Code(s): I48.2 - Chronic atrial fibrillation (3) Diabetes Assessment/Plan: -diabetic diet -FSBS and SSI while in hospital Code(s): E11.9 - TYPE 2 DIABETES MELLITUS WITHOUT COMPLICATIONS Qualifiers: Diabetes mellitus type: type 2 Diabetes mellitus computer consultant insulin use: without computer consultant use Diabetes mellitus complication status: with kidney complications Diabetes mellitus complication detail: with chronic kidney disease Chronic kidney disease stage: stage 3 (moderate) Qualified Code(s): E11.22 - Type 2 diabetes mellitus with diabetic chronic kidney disease; N18.3 - Chronic kidney disease, stage 3 (moderate) (4) Chronic kidney disease Assessment/Plan: -at baseline Code(s): N18.9 - CHRONIC KIDNEY DISEASE, UNSPECIFIED Qualifiers: Chronic kidney disease stage: stage 3 (moderate) Qualified Code(s): N18.3 - Chronic kidney disease, stage 3 (moderate) (5) Gout Assessment/Plan: -continue allopurinol Code(s): M10.9 - GOUT, UNSPECIFIED Qualifiers: Chronicity: chronic (6) Hypertension Assessment/Plan: -controlled Code(s): I10 - ESSENTIAL (PRIMARY) HYPERTENSION Qualifiers: Hypertension type: essential hypertension Qualified Code(s): I10 - Essential (primary) hypertension (7) HLD (hyperlipidemia) Assessment/Plan: -continue statin Code(s): E78.5 - HYPERLIPIDEMIA, UNSPECIFIED Qualifiers: Hyperlipidemia type: pure hypercholesterolemia Qualified Code(s): E78.00 - Pure hypercholesterolemia, unspecified; E78.0 - Pure hypercholesterolemia (8) Abnormal liver function test Assessment/Plan: -resolved Code(s): R79.89 - OTHER SPECIFIED ABNORMAL FINDINGS OF BLOOD CHEMISTRY (9) Carotid artery stenosis Assessment/Plan: -carotid duplex- 80-99% left ics stenosis -vascular consulted Code(s): I65.29 - OCCLUSION AND STENOSIS OF UNSPECIFIED CAROTID ARTERY Qualifiers: Laterality: bilateral Qualified Code(s): I65.23 - Occlusion and stenosis of bilateral carotid arteries (10) Hypokalemia Assessment/Plan: -replaced Code(s): E87.6 - HYPOKALEMIA
[2018-08-15 08:57] LABS: CHOLESTEROL 151 mg/dL (50-200); HDL CHOLESTEROL 28 mg/dL (40-60); LDL CHOLESTEROL (ONLY DFH) 80 mg/dl (5-100); TRIGLYCERIDES 213 mg/dL (0-150)
[2018-08-15] MEDS: POTASSIUM CHLORIDE ORAL LIQUID 20 MEQ/15 ML PO SCH (09:17)
[2018-08-15] MEDS: metoPROLOL SUCCINATE 25 MG TAB.SR.24H (FP) PO SCH (09:17)
[2018-08-15] MEDS: ALLOPURINOL 100 MG TABLET (FP) PO SCH (09:17)
[2018-08-15] MEDS: FINASTERIDE 5 MG TABLET (FP) PO SCH (09:18)
[2018-08-15 11:03] LABS: ANISOCYTOSIS 0; MACROCYTOSIS 0; PLATELET ESTIMATE DECREASED
--- NOTE | 2018-08-15 11:54 | CONSULT ---
Consult - History of Present Illness History of Present Illness: 83 year old with history of right carotid endarterectomy in the past who has been followed by his PMD with carotid Duplex. last study available on EMR was in 2014 showing no significant stenosis of either carotid. He is now admitted with complaint of bilateral leg heaviness, worse on the right side. he denies any history of stroke, transient motor, sensory or speech deficit. He is left handed. He is on Coumadin for chronic A fib. A repeat carotid Duplex is showing critical stenosis of the left ICA. - History Source History Provided By: Patient, Medical Record Limitations to Obtaining History: No Limitations - Past Medical History Cardio/Vascular: Yes: AFIB (paroxysmal atrial tachy), HTN, Hyperlipdemia Pulmonary: Yes: Other (Smoking disorder) Gastrointestinal: Yes: GERD, Other Hepatobiliary: Yes: Cholelithiasis, Choledocholithiasis, Other (h/o elev lfts) Renal/: Yes: Renal Inusuff, Renal Calculi (recent several weeks ago) Musculoskeletal: Yes: Chronic low back pain Rheumatology: Yes: Gout Endocrine: Yes: Diabetes Mellitus (on januvia) - Past Surgical History Past Surgical History: Yes: Cholecystectomy - Alcohol/Substance Use Hx Alcohol Use: No History of Substance Use: reports: None - Smoking History Smoking history: Former smoker Have you smoked in the past 12 months: No Aproximately how many cigarettes per day: 0 If you are a former smoker, when did you quit?: 2007 - Social History ADL: Independent History of Recent Travel: No Home Medications - Allergies Allergies/Adverse Reactions: Allergies Allergy/AdvReac Type Severity Reaction Status Date / Time No Known Allergies Allergy Verified 08/13/18 18:20 - Home Medications Home Medications: Ambulatory Orders Diltiazem Cd [Cardizem Cd -] 180 mg PO DAILY #30 cap.cd.24h 01/25/14 Allopurinol [Zyloprim -] 100 mg PO DAILY 02/25/14 Simvastatin [Zocor -] 10 mg PO HS 02/25/14 Warfarin Na [Coumadin -] 4 mg PO DAILY 02/25/14 Glipizide [Glucotrol -] 5 mg PO DAILY #30 tablet 11/18/14 Metoprolol Succinate [Toprol XL -] 25 mg PO BID 11/24/15 Finasteride [Proscar] 5 mg PO DAILY 08/13/18 Fluticasone Prop 0.05% Nasal [Flonase -] 1 - 2 spray NS BID 08/13/18 Pioglitazone HCl 15 mg PO DAILY 08/13/18 Family Disease History - Family Disease History Family Disease History: Other: Mother ( of gallbladder disease) Physical Exam Vital Signs: Vital Signs Temperature 97.5 F L 08/15/18 09:15 Pulse Rate 71 08/15/18 09:15 Respiratory Rate 20 08/15/18 05:44 Blood Pressure 133/69 08/15/18 09:15 O2 Sat by Pulse Oximetry (%) 96 08/14/18 20:27 Constitutional: Yes: No Distress Eyes: Yes: WNL, EOM Intact HENT: Yes: WNL Neck: Yes: Supple Cardiovascular: Yes: WNL Respiratory: Yes: Regular Gastrointestinal: Yes: Soft Edema: Yes Edema: LLE: Trace, RLE: Trace Neurological: Yes: Alert, Oriented ...Motor Strength: WNL Labs: CBC, BMP 08/15/18 05:30 08/15/18 05:30 Imaging - Results Ultrasound: Image Reviewed (Left ICA PSV > 400, PDV > 100, ICA:CCA 7) Problem List - Problems (1) Carotid artery stenosis Assessment/Plan: Critical stenosis of left ICA, apparently changed since prior studies. He is asymptomatic and the prior right carotid endarterectomy to the dominant hemisphere is free of restenosis. Decision to treat this stenosis in an 83 year old will require consultation with neurology, cardiology and primary care as well as informed consent discussion with patient and family. There is no need for an emergency procedure as long as he remains asymptomatic. I will see in my office to discuss further. Code(s): I65.29 - OCCLUSION AND STENOSIS OF UNSPECIFIED CAROTID ARTERY Qualifiers: Laterality: left Qualified Code(s): I65.22 - Occlusion and stenosis of left carotid artery
--- NOTE | 2018-08-15 13:46 | PN ---
Progress Note (short form) - Note Progress Note: Covering for Dr Powell over the weekend In brief, Mr France is 83 y/o male with PMH of HTN, HLD, GERD, Afib, BPH, carotid artery stenosis s/p right carotid end artrectomy in past. He came with brief heaviness and weakness in leg. Patient denies any back pain or urinary or bladder symptoms. He is on coumadin and statin. His symptoms seems to be resolved completely. Neurological Examiantion Alert oriented x 3 cn all intact motor 5/5 all ext sensation is noraml able to walk ct head is normal, mri of brain no acute findings carotid ultrasound - left sided critical carotid steonsis Assessment Painless transient weakness of lower extremity and resolved completely, given his risk factor of HTN, HLD, Atrial fibrillation, carotid steonsis, borderline dm. I suspect it is vascular in origin Plan Follow up on mri of L spine - Vascular surgery consult appreciated -Given his age and various vascular risk factor, he would require antiplatelt but it would be increase risk of bleed. suggest to hold aspirin but statin can certainly be increased to 20 mg once a day Thanking you so much Alfonso Chapman MD
[2018-08-15 15:17] VITALS: BP 152/61; PULSE 68; TEMP 98.7
[2018-08-15 15:50] LABS: INR 2.39 (0.83-1.09); PROTHROMBIN TIME (PATIENT) 28.4 SEC (9.7-13.0)
--- NOTE | 2018-08-15 16:39 | DS ---
Physical Examination Vital Signs: Vital Signs Temperature 37.1 C 08/15/18 15:13 Pulse Rate 68 08/15/18 15:13 Respiratory Rate 20 08/15/18 05:44 Blood Pressure 152/61 08/15/18 15:13 O2 Sat by Pulse Oximetry (%) 96 08/15/18 09:00 Labs: CBC, BMP 08/15/18 05:30 08/15/18 05:30 Discharge Summary Reason For Visit: PRE-SYNCOPE,T WAVE INVERSION ON ELECTROCARDIOGRAPH Current Active Problems Afib (Acute) Carotid artery stenosis (Acute) Diabetes (Acute) HLD (hyperlipidemia) (Acute) Hypokalemia (Acute) Leg heaviness (Acute) Pre-syncope (Acute) T wave inversion in EKG (Acute) Hospital Course: Mr France is a very pleasant 83 year old male who comes in with transient weakness. He was admitted to the hospital. He underwent CT scan of the head, MRI of the brain, and MRI of the spine. He also had a carotid ultrasound. MRI was reviewed by neurology, no neurological signs for weakness. Vascular origin suspected. He was seen by Dr Falk for his critical stenosis. No urgent intervention required, but will continue to follow as an outpatient. His statin will be changed to lipitor 20mg qhs. He is currently walking and back to baseline. He is safe for discharge home. 32 minutes spent in preparation of this discharge. Condition: Stable - Instructions Diet, Activity, Other Instructions: resume previous diet and activity Referrals: Elmer Gómez MD [Primary Care Provider] - Disposition: HOME - Home Medications Comprehensive Discharge Medication List: Ambulatory Orders Diltiazem Cd [Cardizem Cd -] 180 mg PO DAILY #30 cap.cd.24h 01/25/14 Allopurinol [Zyloprim -] 100 mg PO DAILY 02/25/14 Warfarin Na [Coumadin -] 4 mg PO DAILY 02/25/14 Glipizide [Glucotrol -] 5 mg PO DAILY #30 tablet 11/18/14 Metoprolol Succinate [Toprol XL -] 25 mg PO BID 11/24/15 Finasteride [Proscar] 5 mg PO DAILY 08/13/18 Fluticasone Prop 0.05% Nasal [Flonase -] 1 - 2 spray NS BID 08/13/18 Pioglitazone HCl 15 mg PO DAILY 08/13/18 Atorvastatin Ca [Lipitor] 20 mg PO HS #30 tablet 08/15/18
[2018-08-15] MEDS ORDERED: ATORVASTATIN CA 20 MG TABLET (FP) PO SCH (22:00)
== END 2018-08-15 17:20 | disposition home or self-care (01) ==
LOC: JER 13:44 → JERBED 20:30 → J4W 08-14 15:33
PROVIDERS: ADMIT Internal Medicine; ATTEND Nurse Practitioner Family
PROC: 3E0337Z Introduction of Electrolytic and Water Balance Substance into Peripheral Vein, Percutaneous Approach (ICD-10-PCS; principal; 2018-08-13)
PROC: 3E013GC Introduction of Other Therapeutic Substance into Subcutaneous Tissue, Percutaneous Approach (ICD-10-PCS; 2018-08-13)
DX: M62.81 Muscle weakness (generalized) (principal); R94.31 Abnormal electrocardiogram [ECG] [EKG]; I48.2 Chronic atrial fibrillation; E11.22 Type 2 diabetes mellitus with diabetic chronic kidney disease; I12.9 Hypertensive chronic kidney disease with stage 1 through stage 4 chronic kidney disease, or unspecified chronic kidney disease; I65.22 Occlusion and stenosis of left carotid artery; N18.3 Chronic kidney disease, stage 3 (moderate); E78.5 Hyperlipidemia, unspecified; E80.7 Disorder of bilirubin metabolism, unspecified; E11.9 Type 2 diabetes mellitus without complications; E87.6 Hypokalemia; N40.0 Benign prostatic hyperplasia without lower urinary tract symptoms; M10.9 Gout, unspecified; M54.5 Low back pain; G89.29 Other chronic pain; K21.9 Gastro-esophageal reflux disease without esophagitis; R29.898 Other symptoms and signs involving the musculoskeletal system; R94.5 Abnormal results of liver function studies; R26.2 Difficulty in walking, not elsewhere classified; Z99.89 Dependence on other enabling machines and devices; Z79.01 Long term (current) use of anticoagulants; Z79.84 Long term (current) use of oral hypoglycemic drugs; Z86.79 Personal history of other diseases of the circulatory system; Z87.891 Personal history of nicotine dependence; Z98.1 Arthrodesis status
CPT/HCPCS: 36415; 70450-TC; 70551-TC; 71045-TC-FY; 72148-TC; 80053; 80061; 81003; 81015; 82607; 82746; 82962; 83735; 84100; 84153; 84443; 84484; 85025; 85610; 85651; 85730; 86140; 87086; 87804; 93005; 93010; 93880-TC; 93925-TC; 96372; 99285-25; G0378; J1644

== ENCOUNTER 2018-09-04 15:42 | Inpatient (IN) | payer OTHER ==
--- NOTE | 2018-09-04 16:07 | PDOC ---
Rapid Medical Evaluation Time Seen by Provider: 09/04/18 16:04 Medical Evaluation: Allergies Allergy/AdvReac Type Severity Reaction Status Date / Time No Known Allergies Allergy Verified 08/13/18 18:20 09/04/18 16:04 I have performed a brief in-person evaluation of this patient. The patient presents with a chief complaint of:urinary frequency and tremors Pertinent physical exam findings:nad I have ordered the following:UA and Cx labs The patient will proceed to the ED for further evaluation. Discharge Disposition - Diagnosis Urinary frequency - Referrals - Patient Instructions - Post Discharge Activity
[2018-09-04] MEDS ORDERED: LACTATED RINGERS SOLUTION 1000 ML INFUS.BAG IV ONE (18:10)
[2018-09-04 18:36] LABS: BASO % 0.6 % (0-2.0); EOS % 3.7 % (0-4.5); HEMATOCRIT 46.1 % (35.4-49); HEMOGLOBIN 15.8 GM/dL (11.7-16.9); LYMPH % 17.5 % (8-40); MCH 31.5 pg (25.7-33.7); MCHC 34.4 g/dl (32.0-35.9); MEAN CELL VOLUME 91.6 fl (80-96); MEAN PLT VOLUME 9.3 fl (7.5-11.1); MONO % 6.5 % (3.8-10.2); NEUT % 71.7 % (42.8-82.8); PLATELET COUNT 96 K/MM3 (134-434); RBC 5.03 M/mm3 (4.00-5.60); RDW 15.7 % (11.9-15.9); WHITE BLOOD COUNT 8.6 K/mm3 (4.0-10.0)
[2018-09-04 18:46] LABS: URINE APPEARANCE CLEAR; URINE BILIRUBIN NEGATIVE (<2.0 mg/dL); URINE COLOR YELLOW; URINE GLUCOSE (UA) 1+ (NEGATIVE); URINE KETONE NEGATIVE (NEGATIVE); URINE LEUK ESTERASE NEGATIVE (NEGATIVE); URINE NITRITE NEGATIVE (NEGATIVE); URINE PROTEIN 2+ (NEGATIVE); URINE UROBILINOGEN NEGATIVE mg/dL (0.2-1.0)
[2018-09-04 18:49] LABS: URINE MUCUS RARE
[2018-09-04 18:51] LABS: INR 2.8 (0.83-1.09); PROTHROMBIN TIME (PATIENT) 33.4 SEC (9.7-13.0)
--- NOTE | 2018-09-04 18:57 | PDOC ---
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 The patient was recently admitted to the hospital for concerns for stroke. At that time, pt had an ultrasound finding demonstrating ICA (L) ~95% stenosis. At that time, endarectomy was deferred for outpatient management. (Pt is left hand dominant). Noted yesterday that he was c/o urinary frequency, but no dysuria. no fevers. No abdominal pain. Yesterday, had a brief episode of slurring of speech noted by daughter. The symptoms resolved and pt has no neuro symptoms. However, pt feels generally fatigue and tired. Decreased appetite. - Physicial Exam PE: 09/04/18 18:57 GENERAL: Awake, alert, and fully oriented, in no acute distress HEAD: No signs of trauma EYES: EOMI, sclera anicteric, conjunctiva clear ENT: Auricles normal inspection, hearing grossly normal, nares patent, Moist mucosa NECK: Normal ROM, supple, LUNGS: Breath sounds equal, clear to auscultation bilaterally. No wheezes, and no crackles HEART: Irregular rate and rhythm, normal S1 and S2, no murmurs, rubs or gallops ABDOMEN: Soft, nontender, No guarding, no rebound. No masses EXTREMITIES: Normal range of motion, no edema. No clubbing or cyanosis. No cords, erythema, or tenderness NEUROLOGICAL: Cranial nerves II through XII intact. Normal speech, No pronator drift, full strength and sensation in upper and lower extremities. No dysmetria. Normal rapid alternating. normal heel to escobar. SKIN: Warm, Dry, normal turgor, no rashes or lesions noted. - Medical Decision Making 09/04/18 18:59 Vital Signs Temp Pulse Resp BP Pulse Ox 97.3 F L 69 16 168/87 97 09/04/18 16:05 09/04/18 16:05 09/04/18 16:05 09/04/18 16:05 09/04/18 16:05 The patient's symptoms may potentially be recrudescence or urinary tract infection. However, the patient does have high degree stenosis of the left internal carotid artery which may reproduce symptoms of TIA. Patient will require head CT and labs. We'll obtain urinalysis to rule out urinary tract infection. Ultimately, the patient be admitted to the hospital for further evaluation to rule out TIA. 09/04/18 21:25 CT head with no acute findings. CBC, BMP 09/04/18 18:15 09/04/18 18:15 CMP Sodium 140 mmol/L (136-145) 09/04/18 18:15 Potassium 3.8 mmol/L (3.5-5.1) 09/04/18 18:15 Chloride 106 mmol/L (98-107) 09/04/18 18:15 Carbon Dioxide 27 mmol/L (21-32) 09/04/18 18:15 Anion Gap 7 MMOL/L (8-16) L 09/04/18 18:15 BUN 28 mg/dL (7-18) H 09/04/18 18:15 Creatinine 1.7 mg/dL (0.55-1.3) H 09/04/18 18:15 Creat Clearance w eGFR 38.50 (>60) 09/04/18 18:15 Random Glucose 147 mg/dL (74-106) H 09/04/18 18:15 Calcium 8.5 mg/dL (8.5-10.1) 09/04/18 18:15 Total Bilirubin 1.1 mg/dL (0.2-1) H 09/04/18 18:15 AST 30 U/L (15-37) 09/04/18 18:15 ALT 47 U/L (13-61) 09/04/18 18:15 Alkaline Phosphatase 118 U/L (45-117) H 09/04/18 18:15 Troponin I < 0.02 ng/ml (0.00-0.05) 09/04/18 18:15 Total Protein 6.6 g/dl (6.4-8.2) 09/04/18 18:15 Albumin 3.5 g/dl (3.4-5.0) 09/04/18 18:15 TSH 0.96 uIU/ml (0.358-3.74) D 09/04/18 18:15 Labs reviewed. Trop negative. Physician consultation placed in for Dr. Stevens. Case discussed with Dr. Cadena. Admitted to stroke obs under [facility]phony. Case discussed in detail with admitting physician including history, physical exam and ancillary studies. Admitting physician has assumed care for the patient, will follow all pending diagnostics and will complete the evaluation and treatment. 09/04/18 21:[address] Kemp. He is informed that the patient will be admitted. *DC/Admit/Observation/Transfer Diagnosis at time of Disposition: Urinary frequency, Slurred speech - Discharge Dispostion Condition at time of disposition: Stable Decision to Admit order: Yes - Referrals Referrals: Elmer Gómez MD [Primary Care Provider] - - Patient Instructions - Post Discharge Activity Heart Score/ECG Review #1 ECG reviewed & interpreted by me at: 18:40 09/04/18 18:58 Atrial fibrillation 98, RBBB, no std/daina, QTC 523 msec NIH Stroke Scale - Last Known Well Date/Time & Onset Date Last Known Well: 09/03/18 - Initial Evaluation Level of consciousness: Alert Ask patient the month and their age: Answers both correctly Ask patient to open & close eyes; make fist and let go: Obeys both correctly Best gaze (horizontal eye movement): Normal Visual field testing: No visual field loss Facial paresis (Show teeth/raise eyebrows/close eyes tight): Normal symmetrical movement Motor Function: Left Arm: Normal Motor Function: Right Arm: Normal (extends arm 90 (or 45) degrees for 10 seconds without drift Motor Function: Left Leg: Normal (extends leg 30 degrees for 5 seconds without drift) Motor Function: Right Leg: Normal (extends leg 30 degrees for 5 seconds without drift) Limb Ataxia: No ataxia Sensory(Use pinprick test arms,legs,trunk,face/side to side): Normal Best language (Describe picture, name items, read sentences): No Aphasia Dysarthria (read several words): Normal articulation Extinction and Inattention: No abnormality - Total Score NIH Stroke Scale Score: 0
[2018-09-04 19:07] LABS: ALBUMIN 3.5 g/dl (3.4-5.0); ALK PHOS 118 U/L (45-117); ANION GAP 7 MMOL/L (8-16); BILIRUBIN,TOTAL 1.1 mg/dL (0.2-1); BLOOD UREA NITROGEN 28 mg/dL (7-18); CALCIUM 8.5 mg/dL (8.5-10.1); CHLORIDE 106 mmol/L (98-107); CO2 27 mmol/L (21-32); CREATININE 1.7 mg/dL (0.55-1.3); GLUCOSE,RANDOM 147 mg/dL (74-106); POTASSIUM 3.8 mmol/L (3.5-5.1); SGOT/AST 30 U/L (15-37); SGPT/ALT 47 U/L (13-61); SODIUM 140 mmol/L (136-145); TOT PROT 6.6 g/dl (6.4-8.2)
--- NOTE | 2018-09-04 21:40 | HP ---
CHIEF COMPLAINT:urinary frequency and slurred speech. 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 pt reports going to urinate last night between 10 and 12 around 6 times and felt walking funny, his daughter mentioned his speech was slurred over the phone . The patient was recently admitted to the hospital for concerns for stroke. At that time, pt had an ultrasound finding demonstrating ICA (L) ~95% stenosis. At that time, endarectomy was deferred for outpatient management. (Pt is left hand dominant). Noted yesterday that he was c/o urinary frequency, but no dysuria. no fevers. No abdominal pain. Yesterday, had a brief episode of slurring of speech noted by daughter. The symptoms resolved and pt has no neuro symptoms. However, pt feels generally fatigue and tired. Decreased appetite. reports slight nose bleed 2 days ago few drops , ER course was notable for: (1)Head CT negative (2)cbc, cmp (3)trop negative Recent Travel:denies PAST MEDICAL HISTORY: per HPI PAST SURGICAL HISTORY: lumbar surgery with titanium plate , cholecystectomy, cataract , CEA Social History: Smoking:previous smoker of bipe since age of 16 , quit 10 years ago Alcohol:socially Drugs: denies Family History:other at age of 40 with gall stone 1939 . Allergies No Known Allergies Allergy (Verified 09/04/18 16:04) HOME MEDICATIONS: Home Medications Medication Instructions Recorded Diltiazem Cd [Cardizem Cd -] 180 mg PO DAILY #30 cap.cd.24h 01/25/14 Allopurinol [Zyloprim -] 100 mg PO DAILY 02/25/14 Warfarin Na [Coumadin -] 4 mg PO DAILY 02/25/14 Glipizide [Glucotrol -] 5 mg PO DAILY #30 tablet 11/18/14 Metoprolol Succinate [Toprol XL -] 25 mg PO BID 11/24/15 Finasteride [Proscar] 5 mg PO DAILY 08/13/18 Fluticasone Prop 0.05% Nasal 1 - 2 spray NS BID 08/13/18 [Flonase -] Pioglitazone HCl 15 mg PO DAILY 08/13/18 Atorvastatin Ca [Lipitor] 20 mg PO HS #30 tablet 08/15/18 REVIEW OF SYSTEMS CONSTITUTIONAL: Absent: fever, chills, diaphoresis, generalized weakness, malaise, loss of appetite, weight change HEENT: Absent: rhinorrhea, nasal congestion, throat pain, throat swelling, difficulty swallowing, mouth swelling, ear pain, eye pain, visual changes CARDIOVASCULAR: Absent: chest pain, syncope, palpitations, irregular heart rate, lightheadedness , peripheral edema RESPIRATORY: Absent: cough, shortness of breath, dyspnea with exertion, orthopnea, wheezing, stridor, hemoptysis GASTROINTESTINAL: Absent: abdominal pain, abdominal distension, nausea, vomiting, diarrhea, constipation, melena, hematochezia GENITOURINARY: Absent: dysuria, frequency, urgency, hesitancy, hematuria, flank pain, genital pain MUSCULOSKELETAL: Absent: myalgia, arthralgia, joint swelling, back pain, neck pain SKIN: Absent: rash, itching, pallor HEMATOLOGIC/IMMUNOLOGIC: Absent: easy bleeding, easy bruising, lymphadenopathy, frequent infections ENDOCRINE: Absent: unexplained weight gain, unexplained weight loss, heat intolerance, cold intolerance NEUROLOGIC: Absent: headache, focal weakness or paresthesias, dizziness, unsteady gait, seizure, mental status changes, bladder or bowel incontinence PSYCHIATRIC: Absent: anxiety, depression, suicidal or homicidal ideation, hallucinations. PHYSICAL EXAMINATION Vital Signs - 24 hr 09/04/18 09/04/18 16:05 19:31 Temperature 97.3 F L 98.1 F Pulse Rate 69 Pulse Rate [ 88 Apical] Respiratory 16 18 Rate Blood Pressure 168/87 Blood Pressure 148/89 [Left Arm] O2 Sat by Pulse 97 95 Oximetry (%) GENERAL:AOx3 in NAD HEAD: Normal with no signs of trauma. EYES: Pupils equal, round and reactive to light, extraocular movements intact, sclera anicteric, EARS, NOSE, THROAT: Ears normal, nares patent, oropharynx clear without exudates. Moist mucous membranes. NECK: Normal range of motion, supple LUNGS: Breath sounds equal, clear to auscultation bilaterally. No wheezes, and no crackles. No accessory muscle use. HEART: Iregularly irregular , normal S1 and S2 without murmur, rub or gallop. ABDOMEN: Soft, nontender, not distended, normoactive bowel sounds, no guarding, MUSCULOSKELETAL: Normal range of motion at all joints. No CVA tenderness. UPPER EXTREMITIES: 2+ pulses, warm, well-perfused. No cyanosis. No clubbing. No peripheral edema. LOWER EXTREMITIES: 2+ pulses, warm, well-perfused. No calf tenderness. No peripheral edema. NEUROLOGICAL: Cranial nerves II-XII intact except facial asymmetry , left side drop . 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 reflexes are intact PSYCHIATRIC: Cooperative. Good eye contact. SKIN: Warm, dry, normal turgor, Laboratory Results - last 24 hr 09/04/18 09/04/18 09/04/18 18:15 18:15 18:15 WBC 8.6 RBC 5.03 Hgb 15.8 Hct 46.1 D MCV 91.6 MCH 31.5 MCHC 34.4 RDW 15.7 Plt Count 96 L D MPV 9.3 Absolute Neuts (auto) 6.2 Neutrophils % 71.7 D Lymphocytes % 17.5 D Monocytes % 6.5 Eosinophils % 3.7 Basophils % 0.6 Nucleated RBC % 0 PT with INR INR Sodium 140 Potassium 3.8 Chloride 106 Carbon Dioxide 27 Anion Gap 7 L BUN 28 H Creatinine 1.7 H Creat Clearance w eGFR 38.50 Random Glucose 147 H Calcium 8.5 Total Bilirubin 1.1 H AST 30 ALT 47 Alkaline Phosphatase 118 H Troponin I Total Protein 6.6 Albumin 3.5 TSH Urine Color Yellow Urine Appearance Clear Urine pH 5.0 Ur Specific [place] 1.023 Urine Protein 2+ H Urine Glucose (UA) 1+ H Urine Ketones Negative Urine Blood 2+ H Urine Nitrite Negative Urine Bilirubin Negative Urine Urobilinogen Negative Ur Leukocyte Esterase Negative Urine WBC (Auto) 1 Urine RBC (Auto) 7 Urine Mucus Rare 09/04/18 09/04/18 09/04/18 18:15 18:15 18:15 WBC RBC Hgb Hct MCV MCH MCHC RDW Plt Count MPV Absolute Neuts (auto) Neutrophils % Lymphocytes % Monocytes % Eosinophils % Basophils % Nucleated RBC % PT with INR 33.40 H INR 2.80 H Sodium Potassium Chloride Carbon Dioxide Anion Gap BUN Creatinine Creat Clearance w eGFR Random Glucose Calcium Total Bilirubin AST ALT Alkaline Phosphatase Troponin I < 0.02 Total Protein Albumin TSH 0.96 D Urine Color Urine Appearance Urine pH Ur Specific [place] Urine Protein Urine Glucose (UA) Urine Ketones Urine Blood Urine Nitrite Urine Bilirubin Urine Urobilinogen Ur Leukocyte Esterase Urine WBC (Auto) Urine RBC (Auto) Urine Mucus CBC, BMP 09/04/18 18:15 09/04/18 18:15 ASSESSMENT/PLAN: 83 y/o male left handed with PMH of afib, DM, HTN, HLD, BPH, gout, carotid artery stenosis(95 % left side ) who was discharged recentlt from [facility] due to LLE weakness that was resolved presented to ED today with one day history of slurry speech and facial asymmetry and was admitted to obse tele stroke unit for obsevation #TIA * Facial asymmetry , some slurred speach, improved compare to yesterday per his family * Neuro exam with 5/5 strength upper and lower ext , sensation intact * on Coumadin at home will hold to R/O brain bleeding , For MRI brain and MRA in AM without contrast * Head CT with no acute pathology , * admit to tele obs * monitor BP * head of bed elvated * aspiration precautions , * speech and swallow eval * Neurology consulted Dr Nelson * was seen by vascular last visit that show 95% stenosis on left carotid , high risk for surgery * PT eval * BMP 147 will monitor and keep 150-200 #Afib * patient on Coumadin 2mg will hold till MRI brain was done to R/O brain bleed #T wave inversions on EKG previous EKG from 2014 did not show these T wave inversions; unclear how long patient has had them * first trop negative; will continue to trend * cardiology consulted # UMU on CKD * previous Cr was 1.8; unclear what his baseline is * monitor electrolytes * Gentle hydration #HTN * monitor BP * Current BP 148/89 no need to drop more * cont home medications in AM #HLD * c/w Lipitor 20 mg daily , I gave one dose 80 mg #DM * holding home regimen * ISS * BGMS TID AC #BPH * c/w home medications #Gout * c/w allopurinol # Constipation * on Miralax as needed #F/E/N * NS @42mls/hr * monitor electrolytes * NPO till speech and swallow eval #DVT PPX: Lovenox 40 SQ daily Visit type - Emergency Visit Emergency Visit: Yes ED Registration Date: 09/04/18 Care time: The patient presented to the Emergency Department on the above date and was hospitalized for further evaluation of their emergent condition. - New Patient This patient is new to me today: Yes Date on this admission: 09/04/18 - Critical Care Critical Care patient: No
--- NOTE | 2018-09-04 21:56 | PDOC ---
History of Present Illness - General Chief Complaint: Urinary Problem Stated Complaint: BODY ACHES / SLURRED SPEACH Time Seen by Provider: 09/04/18 16:04 History Source: Patient, Family (Daughter present at bedside), Old Records Exam Limitations: No Limitations - History of Present Illness Initial Comments: HPI: 83 y/o male presenting to [facility] ER complaining of two hours of urinary frequency with approx. 6 voids last evening. Pt reports feeling a rumbling in his chest and abdomen as well as a generalized feeling of fatigue during this period. Daughter reports observing slurred speech, which may have possibly continued into this morning. Pt denies fevers, chills, dysuria, hematuria, or penile discharge. Has a h/o of enlarged prostate. No reported falls or trauma. At time of interview, the pt denies any acute complaints. Pt was discharged from this facility on 15 Aug 2018 for similar symptoms. Work up was significant for left carotid stenosis of 80-99% noted on U/S on 14 Aug 2018. PCP: Dr. 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 Medical Hx: carotid artery stenosis, GERD, HLD, HTN, Gout, BPH, Afib, choledocolithiasis, DM2, prior lumbosacral disc degeneration s/p surgical repair Past History - Past Medical History Allergies/Adverse Reactions: Allergies Allergy/AdvReac Type Severity Reaction Status Date / Time No Known Allergies Allergy Verified 09/04/18 16:04 Home Medications: Ambulatory Orders Diltiazem Cd [Cardizem Cd -] 180 mg PO DAILY #30 cap.cd.24h 01/25/14 Allopurinol [Zyloprim -] 100 mg PO DAILY 02/25/14 Warfarin Na [Coumadin -] 4 mg PO DAILY 02/25/14 Glipizide [Glucotrol -] 5 mg PO DAILY #30 tablet 11/18/14 Metoprolol Succinate [Toprol XL -] 25 mg PO BID 11/24/15 Finasteride [Proscar] 5 mg PO DAILY 08/13/18 Fluticasone Prop 0.05% Nasal [Flonase -] 1 - 2 spray NS BID 08/13/18 Pioglitazone HCl 15 mg PO DAILY 08/13/18 Atorvastatin Ca [Lipitor] 20 mg PO HS #30 tablet 08/15/18 Anemia: No Asthma: No Cancer: No Cardiac Disorders: Yes (A-fib) CVA: No COPD: No CHF: No Dementia: No Diabetes: Yes (Borderline DM) GI Disorders: Yes (GERD) Disorders: No HTN: Yes Hypercholesterolemia: Yes Liver Disease: No Seizures: No Thyroid Disease: No - Surgical History Abdominal Surgery: No Appendectomy: No Cardiac Surgery: Yes (Right carotid endarterectomy) Cholecystectomy: Yes Lung Surgery: No Neurologic Surgery: Yes (Lumbar spine discectomy w/fusion) Orthopedic Surgery: Yes (Lumbar spine) - Immunization History Immunization Up to Date: Yes - Suicide/Smoking/Psychosocial Hx Smoking Status: No Smoking History: Never smoked Have you smoked in the past 12 months: No Number of Cigarettes Smoked Daily: 0 If you are a former smoker, when did you quit?: 2007 Cigars Per Day: 1 'Breaking Loose' booklet given: 08/14/18 Hx Alcohol Use: No Drug/Substance Use Hx: No Substance Use Type: None Hx Substance Use Treatment: No Review of Systems - Review of Systems Able to Perform ROS?: Yes Comments:: In addition to that documented in the HPI above, the additional ROS was obtained : Constitutional: Denies fevers or chills Eyes: Denies vision changes ENMT: Denies sore throat CV: Denies chest pain Resp: Denies SOB GI: Denies vomiting or diarrhea : Per HPI MSK: Denies recent trauma Skin: Denies new rashes Neuro: Denies new numbness or tingling or weakness Endocrine: Endorses polyuria for 2 hours Heme: Denies bleeding or bruising *Physical Exam - Vital Signs Last Vital Signs Temp Pulse Resp BP Pulse Ox 98.1 F 88 18 148/89 95 09/04/18 19:31 09/04/18 19:31 09/04/18 19:31 09/04/18 19:31 09/04/18 19:31 - Physical Exam Comments: Constitutional: Well-developed, well-nourished male in no acute distress or obvious discomfort. Found sitting upright on edge of hospital bed. Alert and oriented x4. Answered all questions appropriately and completely. Speech was non -labored, non-pressured. Head: Normocephalic. No obvious external signs of trauma. Eyes: Pupils 4mm and PERRL bilaterally. EOMI. Sclerae white. Ears: Decreased hearing, baseline per daughter. Nose: No nasal discharge. Neck: Supple, trachea is midline. Cardiovascular / Chest: Regular rate and regular rhythm. No murmur, rubs, clicks, or gallops. Peripheral pulses: radial pulses full. Respiratory: Breathing unlabored. Equal chest rise and fall. Clear to auscultation bilaterally. No stridor, no wheezing, no rhonchi. Gastrointestinal: abdomen is soft, non-tender, non-distended. No overlying skin lesions or obvious signs of trauma. Post surgical scars over right upper quadrant. Neuro: Alert and oriented. Moving all four extremities spontaneously. No focal deficits. Cranial nerves intact. Sensation to all four extremities intact. Upper and lower extremities: proximal and distal strength 5/5. 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 Plantar flexion and dorsiflexion 5/5. No nuchal rigidity. Intact rapid alternating movements, finger to nose, and heel to escobar. Gait normal. Skin: Warm, dry, and intact. : No R or L CVA tenderness. Psych: Affect: appropriate. Mood: normal. Moderate Sedation - Procedure Monitoring Vital Signs: Procedure Monitoring Vital Signs Temperature 98.1 F 09/04/18 19:31 Pulse Rate 88 09/04/18 19:31 Respiratory Rate 18 09/04/18 19:31 Blood Pressure 148/89 09/04/18 19:31 O2 Sat by Pulse Oximetry (%) 95 09/04/18 19:31 ED Treatment Course - LABORATORY CBC & Chemistry Diagram: 09/04/18 18:15 09/04/18 18:15 - ADDITIONAL ORDERS Additional order review: Laboratory Results 09/04/18 09/04/18 09/04/18 18:15 18:15 18:15 PT with INR 33.40 H INR 2.80 H Sodium Potassium Chloride Carbon Dioxide Anion Gap BUN Creatinine Creat Clearance w eGFR Random Glucose Calcium Total Bilirubin AST ALT Alkaline Phosphatase Troponin I < 0.02 Total Protein Albumin TSH 0.96 D Urine Color Urine Appearance Urine pH Ur Specific Meadow Urine Protein Urine Glucose (UA) Urine Ketones Urine Blood Urine Nitrite Urine Bilirubin Urine Urobilinogen Ur Leukocyte Esterase Urine WBC (Auto) Urine RBC (Auto) Urine Mucus 09/04/18 09/04/18 18:15 18:15 PT with INR INR Sodium 140 Potassium 3.8 Chloride 106 Carbon Dioxide 27 Anion Gap 7 L BUN 28 H Creatinine 1.7 H Creat Clearance w eGFR 38.50 Random Glucose 147 H Calcium 8.5 Total Bilirubin 1.1 H AST 30 ALT 47 Alkaline Phosphatase 118 H Troponin I Total Protein 6.6 Albumin 3.5 TSH Urine Color Yellow Urine Appearance Clear Urine pH 5.0 Ur Specific Meadow 1.023 Urine Protein 2+ H Urine Glucose (UA) 1+ H Urine Ketones Negative Urine Blood 2+ H Urine Nitrite Negative Urine Bilirubin Negative Urine Urobilinogen Negative Ur Leukocyte Esterase Negative Urine WBC (Auto) 1 Urine RBC (Auto) 7 Urine Mucus Rare 09/04/18 18:15 RBC 5.03 MCV 91.6 MCHC 34.4 RDW 15.7 MPV 9.3 Neutrophils % 71.7 D Lymphocytes % 17.5 D Monocytes % 6.5 Eosinophils % 3.7 Basophils % 0.6 - RADIOLOGY Radiology Studies Ordered: Category Date Time Status HEAD CT WITHOUT CONTRAST [CT] Stat CT Scan 09/04/18 19:30 Completed - Medications Given in the ED: ED Medications Discontinued Medications Generic Name Dose Route Start Last Admin Trade Name Freq PRN Reason Stop Dose Admin Lactated Ringer's 1,000 ml 09/04/18 18:10 09/04/18 18:31 Lactated Ringers Solution IV 09/04/18 18:11 1,000 ml ONCE ONE Administration Medical Decision Making - Medical Decision Making *Reviewed vital signs, nursing notes, and prior visit documentation (if available). 83 y/o male with vague neurologic and/or urinary symptoms. H/o of similar two weeks ago with admission and TIA workup remarkable for left carotid stenosis. Pt now followed by Dr. Falk. Afebrile. Vitals unremarkable for hypotension or tachycardia. Physical exam as described above. Neurologically intact. Possible TIA versus cystitis versus prostatitis. Low suspicion for urosepsis without systemic signs. Will obtain EKG, Troponin, basic labs, TSH, UA , urine culture. Will obtain repeat head CT to evaluate for interval changes from previous. INR elevated and within therapeutic range for Coumadin. CBC unremarkable for anemia or leukocytosis. CMP unremarkable for electrolyte derangement. LFTs not elevated. BUN and Cr elevated but at baseline documented in [facility]. TSH within normal limits. Low suspicion for hyper or hypothyroid etiology. UA unremarkable for pyuria, leukocyte esterase, or nitrites. Low suspicion for cystitis or prostatitis. Urine culture pending. Was remarkable for 2+ blood. Pt to follow up with PCP given blood and smoking history. Head CT unremarkable for interval changes from previous. No acute intracranial pathology. Pt reassessed. Reported no further complaints. Discussed imaging and laboratory results with pt. Answered all questions. Pt expressed verbal understanding and agreement with plan to admit to the hospital for further evaluation of possible TIA. ED Attending discussed case with medicine resident. Agrees to admit pt for Dr. Soto. *DC/Admit/Observation/Transfer Diagnosis at time of Disposition: Urinary frequency, Slurred speech - Discharge Dispostion Condition at time of disposition: Stable - Referrals Referrals: Elmer Gómez MD [Primary Care Provider] - - Patient Instructions - Post Discharge Activity
--- NOTE | 2018-09-04 22:03 | PN ---
Teaching Attending Note Name of Resident: Filiberto Cadena ATTENDING PHYSICIAN STATEMENT I saw and evaluated the patient. I reviewed the resident's note and discussed the case with the resident. I agree with the resident's findings and plan as documented. 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 The patient was recently admitted to the hospital due to concerns for stroke. At that time, he had an ultrasound finding demonstrating ICA (L) ~95 % stenosis. At that time, endarectomy was deferred for outpatient management. ( Patient is left hand dominant). Yesterday he started having urinary frequency, but no dysuria. no fevers or abdominal pain. Yesterday, had a brief episode of slurring of speech noted by daughter. The symptoms resolved and he has had no other neuro symptoms. However, he feels generally fatigued with decreased appetite. Denies fever, chills, vomiting or diarrhea. OBJECTIVE: Alert Vital Signs Period Temp Pulse Resp BP Sys/Seaman Pulse Ox Last 24 Hr 97.3 F-98.1 F 69-88 16-18 148-168/87-89 95-97 HEENT: No Jaundice, eye redness or discharge, PERRLA, EOMI. Normocephalic, atraumatic. External ears are normal and hearing is grossly intact. No nasal discharge. Neck: Supple, nontender. No palpable adenopathy or thyromegaly. No JVD Chest: Good effort. Clear to auscultation and percussion. Heart: Irregularly irregular. No S3, rub or murmur Abdomen: Not distended, soft, nontender and no HSM. No rebound or guarding. Normoactive bowel sounds. Ext: Peripheral pulses intact. No leg edema. Skin: Warm and dry. No petechiae, rash or ecchymosis. Neuro: Alert. Oriented x3. CN 2-12 grossly intact. Sensation grossly intact in all four extremities and DTR are symmetric. Home Medications Medication Instructions Recorded Diltiazem Cd [Cardizem Cd -] 180 mg PO DAILY #30 cap.cd.24h 01/25/14 Allopurinol [Zyloprim -] 100 mg PO DAILY 02/25/14 Warfarin Na [Coumadin -] 4 mg PO DAILY 02/25/14 Glipizide [Glucotrol -] 5 mg PO DAILY #30 tablet 11/18/14 Metoprolol Succinate [Toprol XL -] 25 mg PO BID 11/24/15 Finasteride [Proscar] 5 mg PO DAILY 08/13/18 Fluticasone Prop 0.05% Nasal 1 - 2 spray NS BID 08/13/18 [Flonase -] Pioglitazone HCl 15 mg PO DAILY 08/13/18 Atorvastatin Ca [Lipitor] 20 mg PO HS #30 tablet 08/15/18 Abnormal Lab Results 09/04/18 09/04/18 09/04/18 18:15 18:15 18:15 Plt Count 96 L D PT with INR INR Anion Gap 7 L BUN 28 H Creatinine 1.7 H Random Glucose 147 H Total Bilirubin 1.1 H Alkaline Phosphatase 118 H Urine Protein 2+ H Urine Glucose (UA) 1+ H Urine Blood 2+ H 09/04/18 18:15 Plt Count PT with INR 33.40 H INR 2.80 H Anion Gap BUN Creatinine Random Glucose Total Bilirubin Alkaline Phosphatase Urine Protein Urine Glucose (UA) Urine Blood ASSESSMENT AND PLAN: 1. TIA - Presentation consistent with TIA. No acute pathology on head CT. Admit to telemetry and will get MRI/MRA. Consult neurology, PT, do speech and swallow evaluation, get fasting lipids and optimize statin therapy. Will hold coumadin for Afib until after MRI/MRA. Check INR daily. Kidney/bladder sonogram. Consult Urology for hematuria to rule out bladder lesion. 2. DM For now, we will hold the home diabetes drugs and implement sliding scale insulin regimen. Provide comprehensive diabetes care with patient teaching and counseling about the importance of adherence to prescribed diabetes regimen, euglycemia, eye care and foot care. 3. UMU - Cause unclear. Has risk factors for CKD. Check CPK. Will consult nephrology and avoid nephrotoxic agents such as NSAIDS, aminoglycosides, contrast dyes and certain Alternative medicine products. 4. Hypertension - Restart outpatient antihypertensive drugs and revise regimen to ensure smooth [id number] good BP control. Nonpharmacologic measures to control hypertension like weight loss, salt restriction and exercise discussed. 5. DVT prophylaxis - Patient is anticoagulated with INR of 2.8. Coumadin on hold until after MRI/MRA ?tomorrow. Use SCDs, TEDs. 6. Advance directives - Full code
[2018-09-04] MEDS ORDERED: ATORVASTATIN CA 80 MG TABLET (FP) PO ONE (22:54)
[2018-09-04] MEDS: SODIUM CHLORIDE 1,000 ML IV SCH (22:54)
[2018-09-04] MEDS ORDERED: ATORVASTATIN CA 80 MG TABLET (FP) ONE (23:34)
[2018-09-05] MEDS ORDERED: INSULIN (NOVOLOG) ASPART 100 UNITS/ML 10ML VIAL ONE (00:48)
[2018-09-05] MEDS: INSULIN SLIDING SCALE (NOVOLOG) 1 VIAL SQ SCH ×5 (00:50→21:01)
[2018-09-05 01:42] VITALS: BMI 30.4
[2018-09-05 06:45] LABS: BASO % 0.5 % (0-2.0); EOS % 4.7 % (0-4.5); HEMATOCRIT 42.7 % (35.4-49); HEMOGLOBIN 14.9 GM/dL (11.7-16.9); LYMPH % 18.8 % (8-40); MCH 31.4 pg (25.7-33.7); MCHC 34.8 g/dl (32.0-35.9); MEAN CELL VOLUME 90.2 fl (80-96); MEAN PLT VOLUME 9.6 fl (7.5-11.1); MONO % 8.4 % (3.8-10.2); NEUT % 67.6 % (42.8-82.8); PLATELET COUNT 94 K/MM3 (134-434); RBC 4.74 M/mm3 (4.00-5.60); RDW 16.2 % (11.9-15.9); WHITE BLOOD COUNT 5.9 K/mm3 (4.0-10.0)
[2018-09-05] MEDS ORDERED: INSULIN SLIDING SCALE (NOVOLOG) 1 VIAL SQ SCH (07:00)
[2018-09-05 07:10] LABS: CHOLESTEROL 143 mg/dL (50-200); HDL CHOLESTEROL 40 mg/dL (40-60); INR 2.6 (0.83-1.09); TRIGLYCERIDES 171 mg/dL (0-150)
[2018-09-05 07:13] LABS: ACTIVATED PTT 44.7 SECONDS (25.2-36.5)
[2018-09-05 07:24] LABS: ALBUMIN 3.1 g/dl (3.4-5.0); ALK PHOS 103 U/L (45-117); ANION GAP 3 MMOL/L (8-16); BILIRUBIN,TOTAL 1.2 mg/dL (0.2-1); BLOOD UREA NITROGEN 26 mg/dL (7-18); CALCIUM 8.2 mg/dL (8.5-10.1); CHLORIDE 105 mmol/L (98-107); CO2 33 mmol/L (21-32); CREATININE 1.6 mg/dL (0.55-1.3); GLUCOSE,RANDOM 115 mg/dL (74-106); MAGNESIUM 1.9 mg/dL (1.8-2.4); PHOSPHOROUS 2.9 mg/dL (2.5-4.9); SGOT/AST 24 U/L (15-37); SGPT/ALT 40 U/L (13-61); SODIUM 141 mmol/L (136-145); TOT PROT 6.1 g/dl (6.4-8.2)
--- NOTE | 2018-09-05 07:49 | PN ---
Progress Note, Physician Chief Complaint: symptoms resolved at present denies any complaints. History of Present Illness: 83 year old male with history of hx of carotid artery sternosis, L sided ~95% stenosis, GERD, HLD, HTN, Gout, BPH, Afib, choledocholithiasis, DM, lumbosacral degeneration p/w slurring of speech and urinary frequency. The patient was recently admitted to the hospital for concerns for stroke. At that time, pt had an ultrasound finding demonstrating ICA (L) ~95% stenosis. At that time, endarectomy was deferred for outpatient management. (Pt is left hand dominant). - Current Medication List Current Medications: Active Medications Allopurinol (Zyloprim -) 100 mg PO DAILY RAFAT Atorvastatin Calcium (Lipitor -) 20 mg PO HS RAFAT Diltiazem HCl (Cardizem Cd -) 180 mg PO DAILY RAFAT Enoxaparin Sodium (Lovenox -) 40 mg SQ DAILY [facility] Sodium Chloride (Normal Saline -) 1,000 mls @ 50 mls/hr IV ASDIR [facility] Stop: 09/05/18 22:30 Last Admin: 09/04/18 22:54 Dose: 50 mls/hr Insulin Aspart (Novolog Vial Sliding Scale -) 1 vial SQ ACHS [facility]; Protocol Last Admin: 09/05/18 06:50 Dose: Not Given Metoprolol Succinate (Toprol Xl -) 25 mg PO BID [facility] Polyethylene Glycol (Miralax (For Daily Use) -) 17 gm PO DAILY [facility] - Objective Vital Signs: Vital Signs Temperature 97.5 F L 09/05/18 06:01 Pulse Rate 108 H 09/05/18 06:01 Respiratory Rate 20 09/05/18 06:01 Blood Pressure 158/97 09/05/18 06:01 O2 Sat by Pulse Oximetry (%) 98 09/05/18 01:56 Elderly man not in distress HEENT: Mm moist, no anemia NECK: No JVD , decrease pulsation of Left Carotid CHEST: CTA B/L CVS: S1S2 R ABD: No distention, non tender EXT: No edema feet, no calf tenderness HOSPICE BEREAVEMENT COORDINATOR: AOX3 non focal Labs: CBC, BMP 09/05/18 05:45 09/05/18 05:45 INR, PTT INR 2.60 (0.83-1.09) H 09/05/18 05:45 Problem List - Problems (1) Slurred speech Assessment/Plan: Possibility of TIA as patient has Left Carotid stenosis, evaluated by vascular consult planning endrtrectomy, cont statin bP meds and AC for Afib F/U MRI result. Code(s): R47.81 - SLURRED SPEECH (2) Afib Assessment/Plan: rate controlled on AC INR is therapeutic Code(s): I48.91 - UNSPECIFIED ATRIAL FIBRILLATION Qualifiers: Atrial fibrillation type: chronic Qualified Code(s): I48.2 - Chronic atrial fibrillation (3) Carotid artery stenosis Assessment/Plan: 95% evaluted by the Vascular surgery planning endartrectomy after R/O stroke. 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: without half-way use Diabetes mellitus complication status: with kidney complications Diabetes mellitus complication detail: with chronic kidney disease Chronic kidney disease stage: stage 3 (moderate) Qualified Code(s): E11.22 - Type 2 diabetes mellitus with diabetic chronic kidney disease; N18.3 - Chronic kidney disease, stage 3 (moderate) (5) HLD (hyperlipidemia) Assessment/Plan: LDL at target cont Statin Code(s): E78.5 - HYPERLIPIDEMIA, UNSPECIFIED Qualifiers: Hyperlipidemia type: pure hypercholesterolemia Qualified Code(s): E78.00 - Pure hypercholesterolemia, unspecified; E78.0 - Pure hypercholesterolemia (6) Chronic kidney disease Assessment/Plan: CKD stage 3 at base line F/U BMP Code(s): N18.9 - CHRONIC KIDNEY DISEASE, UNSPECIFIED Qualifiers: Chronic kidney disease stage: stage 3 (moderate) Qualified Code(s): N18.3 - Chronic kidney disease, stage 3 (moderate) (7) Hypertension Assessment/Plan: Well controlled cont current management. Code(s): I10 - ESSENTIAL (PRIMARY) HYPERTENSION Qualifiers: Hypertension type: essential hypertension Qualified Code(s): I10 - Essential (primary) hypertension
[2018-09-05] MEDS: metoPROLOL SUCCINATE 25 MG TAB.SR.24H (FP) PO SCH ×2 (09:35→21:01)
[2018-09-05] MEDS: ALLOPURINOL 100 MG TABLET (FP) PO SCH (09:35)
[2018-09-05] MEDS: POLYETHYLENE GLYCOL 3350 119 GM BTL PO SCH (09:35)
[2018-09-05] MEDS ORDERED: ENOXAPARIN NA (PORCINE) 40 MG/0.4 ML DISP.SYRIN SQ SCH (10:00)
--- NOTE | 2018-09-05 10:44 | CONSULT ---
Consult - text type - Consultation Consultation Note: 83 year old patient followed in my office with left carotid stenosis, recent Duplex and CTA showed >80% narrowing. He had been asymptomatic but developed transient speech slurring yesterday while having difficulty urinating. He states he feels well now and has no weakness or trouble speaking. He is s/ pright carotid endarertectomy in the past. On exam, there is no facial asymmetry, no speech impediment. Neuro exam is grossly non-focal. Imp: TIA associated with severe left ICA stenosis. Plan: Neurology evaluation and MRI brain. If current event is felt to be related to carotid disease, endarterectomy should be planned for this admission. Preop Cardiology assessment will be needed for general anesthesia.
--- NOTE | 2018-09-05 20:13 | CONSULT ---
Consult Consult Specialty:: Cardiology Referred by:: Medicine Reason for Consultation:: Pre-operative evaluation - History of Present Illness History of Present Illness: 83 y/o male with (+) tobacco history, PAD, HTN, HPL, Afib on warfarin and DMT2 Presenting with urinary frequency with approximately. 6 voids last evening. Daughter reports observing slurred speech, which may have possibly continued into this morning consistent with a TIA in the setting of know left ICA stenosis. Pt was discharged from this facility on 15 Aug 2018 for similar symptoms. Work up was significant for left carotid stenosis of 80-99% noted on U/S on 14 Aug 2018. PCP: Dr. Gómez Called for cardiology consultation for pre-operative evaluation prior to elective Left ICA Carotid endarterctomy From CV perspective follows with Dr. Andre. last seen in the office 1 month ago Recalls having had a cardiac stress test within the past year with Dr. Andre He denies any exertional chest pains/tightness or pressure, no dyspnea In the spring he is able to walk ~ 2miles around the local [employer] track. He has no prior known [place], documented CAD, PCI or CABG 15 years ago he underwent CEA of right ICA with Dr. Falk - History Source History Provided By: Patient Limitations to Obtaining History: No Limitations - Past Medical History Cardio/Vascular: Yes: AFIB (paroxysmal atrial tachy), HTN, Hyperlipdemia Pulmonary: Yes: Other (Smoking disorder) Gastrointestinal: Yes: GERD, Other Hepatobiliary: Yes: Cholelithiasis, Choledocholithiasis, Other (h/o elev lfts) Renal/: Yes: Renal Inusuff, Renal Calculi (recent several weeks ago) Musculoskeletal: Yes: Chronic low back pain Rheumatology: Yes: Gout Endocrine: Yes: Diabetes Mellitus (on januvia) - Past Surgical History Past Surgical History: Yes: Cholecystectomy - Alcohol/Substance Use Hx Alcohol Use: No History of Substance Use: reports: None - Smoking History Smoking history: Former smoker Have you smoked in the past 12 months: No Aproximately how many cigarettes per day: 0 If you are a former smoker, when did you quit?: 2007 - Social History ADL: Independent History of Recent Travel: No Home Medications - Allergies Allergies/Adverse Reactions: Allergies Allergy/AdvReac Type Severity Reaction Status Date / Time No Known Allergies Allergy Verified 09/04/18 16:04 - Home Medications Home Medications: Ambulatory Orders Diltiazem Cd [Cardizem Cd -] 180 mg PO DAILY #30 cap.cd.24h 01/25/14 Allopurinol [Zyloprim -] 100 mg PO DAILY 02/25/14 Warfarin Na [Coumadin -] 4 mg PO DAILY 02/25/14 Glipizide [Glucotrol -] 5 mg PO DAILY #30 tablet 11/18/14 Metoprolol Succinate [Toprol XL -] 25 mg PO BID 11/24/15 Finasteride [Proscar] 5 mg PO DAILY 08/13/18 Fluticasone Prop 0.05% Nasal [Flonase -] 1 - 2 spray NS BID 08/13/18 Pioglitazone HCl 15 mg PO DAILY 08/13/18 Atorvastatin Ca [Lipitor] 20 mg PO HS #30 tablet 08/15/18 Family Disease History - Family Disease History Family Disease History: Other: Mother ( of gallbladder disease) Review of Systems - Review of Systems Constitutional: reports: No Symptoms Eyes: reports: No Symptoms HENT: reports: No Symptoms Neck: reports: No Symptoms Cardiovascular: reports: No Symptoms Respiratory: reports: No Symptoms Gastrointestinal: reports: No Symptoms Genitourinary: reports: No Symptoms Musculoskeletal: reports: No Symptoms Neurological: reports: Change in Speech Endocrine: reports: No Symptoms Physical Exam Vital Signs: Vital Signs Temperature 97.4 F L 09/05/18 16:50 Pulse Rate 72 09/05/18 16:50 Respiratory Rate 20 09/05/18 16:50 Blood Pressure 155/79 09/05/18 16:50 O2 Sat by Pulse Oximetry (%) 96 09/05/18 09:53 Constitutional: Yes: Well Nourished, No Distress Eyes: Yes: WNL HENT: Yes: WNL Neck: Yes: WNL Cardiovascular: Yes: Regular Rate and Rhythm, Bruit (Right carotid bruit) Respiratory: Yes: CTA Bilaterally Gastrointestinal: Yes: Normal Bowel Sounds Musculoskeletal: Yes: WNL Extremities: Yes: WNL Edema: No Labs: CBC, BMP 09/05/18 05:45 09/05/18 05:45 Imaging - Results EKG: Image Reviewed (ECG done on 09/04/2018 at 18:40 showed Afib at 98/min with RBBB) Other: Report Reviewed (Echo 01/2014 : nl LV/RV; valves WNL; RVSP 30-40) Assessment/Plan 83 yo male with multiple CV risk factors including HTN, HPL, DMT2, priot toabcco use and PAD now with symptomatic left ICA stenosis requiring surgical CEA. 1. Preoperative evaluation -left carotid stenosis of 80-99% noted on U/S on 14 Aug 2018 -Patient has presumed ASCVD with multiple CV risk factors and documented PAD -While he states he is asymptomatic, given his CV risk profile and risk of CEA surgery, I would recommend further CV risk stratification with myocardial perfusion imaging pre-operatively. -Will need to check tomorrow (Friday) if he had this within the past year with Dr. Andre 2. Afib -Currently in NSR -On Warfarin at home -INR 1.9 today, agree with Enoxaparin dosing as bridge to CEA given his recent CVA 3. HTN -Currently elevated but in the setting of ?CVA -Continue his current regimen of metoprolol and Cardizem 4. HPL -Continue Atorva 20mg daily 5. DM -Management as per primary team
[2018-09-05] MEDS: ATORVASTATIN CA 20 MG TABLET (FP) PO SCH (21:01)
[2018-09-05] MEDS: SODIUM CHLORIDE 1,000 ML IV SCH (22:40)
[2018-09-06 05:52] LABS: BASO % 0.5 % (0-2.0); EOS % 4.9 % (0-4.5); HEMATOCRIT 43.2 % (35.4-49); HEMOGLOBIN 14.9 GM/dL (11.7-16.9); LYMPH % 29.6 % (8-40); MCHC 34.5 g/dl (32.0-35.9); MEAN CELL VOLUME 89.7 fl (80-96); PLATELET COUNT 100 K/MM3 (134-434); RBC 4.82 M/mm3 (4.00-5.60); RDW 16.1 % (11.9-15.9); WHITE BLOOD COUNT 6.3 K/mm3 (4.0-10.0)
[2018-09-06 06:05] LABS: INR 1.92 (0.83-1.09); PROTHROMBIN TIME (PATIENT) 22.8 SEC (9.7-13.0)
[2018-09-06 06:22] LABS: ANION GAP 6 MMOL/L (8-16); BLOOD UREA NITROGEN 24 mg/dL (7-18); CALCIUM 8.7 mg/dL (8.5-10.1); CHLORIDE 104 mmol/L (98-107); CO2 30 mmol/L (21-32); CREATININE 1.6 mg/dL (0.55-1.3); GLUCOSE,RANDOM 109 mg/dL (74-106); POTASSIUM 3.8 mmol/L (3.5-5.1); SODIUM 140 mmol/L (136-145)
[2018-09-06] MEDS: INSULIN SLIDING SCALE (NOVOLOG) 1 VIAL SQ SCH ×4 (06:31→21:25)
--- NOTE | 2018-09-06 08:33 | PN ---
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 The patient was recently admitted to the hospital for concerns for stroke. At that time, pt had an ultrasound finding demonstrating ICA (L) ~95% stenosis. At that time, endarectomy was deferred for outpatient management. (Pt is left hand dominant). - Current Medication List Current Medications: Active Medications Allopurinol (Zyloprim -) 100 mg PO DAILY [facility] Last Admin: 09/05/18 09:35 Dose: 100 mg Atorvastatin Calcium (Lipitor -) 20 mg PO HS [facility] Last Admin: 09/05/18 21:01 Dose: 20 mg Diltiazem HCl (Cardizem Cd -) 180 mg PO DAILY [facility] Last Admin: 09/05/18 09:35 Dose: 180 mg Insulin Aspart (Novolog Vial Sliding Scale -) 1 vial SQ ACHS [facility]; Protocol Last Admin: 09/06/18 06:31 Dose: Not Given Metoprolol Succinate (Toprol Xl -) 25 mg PO BID [facility] Last Admin: 09/05/18 21:01 Dose: 25 mg Polyethylene Glycol (Miralax (For Daily Use) -) 17 gm PO DAILY [facility] Last Admin: 09/05/18 09:35 Dose: Not Given Warfarin Sodium (Coumadin -) 4 mg PO 1800 [facility] - Objective Vital Signs: Vital Signs Temperature 97.9 F 09/06/18 08:12 Pulse Rate 91 H 09/06/18 08:12 Respiratory Rate 18 09/06/18 08:12 Blood Pressure 155/85 09/06/18 08:12 O2 Sat by Pulse Oximetry (%) 97 09/06/18 08:14 Elderly man not in distress HEENT: Mm moist, no anemia NECK: No JVD , decrease pulsation of Left Carotid CHEST: CTA B/L CVS: S1S2 R ABD: No distention, non tender EXT: No edema feet, no calf tenderness 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 Code(s): R47.81 - SLURRED SPEECH (2) Afib Assessment/Plan: rate controlled on AC INR is Sub therapeutic cont coumadin 4 mg daily Code(s): I48.91 - UNSPECIFIED ATRIAL FIBRILLATION Qualifiers: Atrial fibrillation type: chronic Qualified Code(s): I48.2 - Chronic atrial fibrillation (3) Carotid artery stenosis Assessment/Plan: 95% evaluted by the Vascular surgery planning endartrectomy after R/O stroke. 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 insulin use: without shelter use Diabetes mellitus complication status: with kidney complications Diabetes mellitus complication detail: with chronic kidney disease Chronic kidney disease stage: stage 3 (moderate) Qualified Code(s): E11.22 - Type 2 diabetes mellitus with diabetic chronic kidney disease; N18.3 - Chronic kidney disease, stage 3 (moderate) (5) HLD (hyperlipidemia) Assessment/Plan: LDL at target cont Statin Code(s): E78.5 - HYPERLIPIDEMIA, UNSPECIFIED Qualifiers: Hyperlipidemia type: pure hypercholesterolemia Qualified Code(s): E78.00 - Pure hypercholesterolemia, unspecified; E78.0 - Pure hypercholesterolemia (6) Chronic kidney disease Assessment/Plan: CKD stage 3 at base line F/U BMP Code(s): N18.9 - CHRONIC KIDNEY DISEASE, UNSPECIFIED Qualifiers: Chronic kidney disease stage: stage 3 (moderate) Qualified Code(s): N18.3 - Chronic kidney disease, stage 3 (moderate) (7) Hypertension Assessment/Plan: Well controlled cont current management. Code(s): I10 - ESSENTIAL (PRIMARY) HYPERTENSION Qualifiers: Hypertension type: essential hypertension Qualified Code(s): I10 - Essential (primary) hypertension Assessment/Plan Case discussed with Vascular Surgery Dr Godoy planning Left Carotid Endartrectomy in coming wk after R/O acute Stroke MRI result is pending.
[2018-09-06] MEDS: POLYETHYLENE GLYCOL 3350 119 GM BTL PO SCH (09:40)
[2018-09-06] MEDS: ALLOPURINOL 100 MG TABLET (FP) PO SCH (09:41)
[2018-09-06] MEDS: metoPROLOL SUCCINATE 25 MG TAB.SR.24H (FP) PO SCH ×2 (09:41→21:25)
[2018-09-06] MEDS ORDERED: WARFARIN NA 2 MG TABLET (UD) PO SCH (18:00)
[2018-09-06] MEDS: ATORVASTATIN CA 20 MG TABLET (FP) PO SCH (21:25)
--- NOTE | 2018-09-06 21:39 | CON.NEURO ---
Consult Consult Specialty:: neuro Reason for Consultation:: TIA - History of Present Illness History of Present Illness: 83 y/o male with (+) tobacco history, PAD, HTN, HPL, Afib on warfarin and DMT2; Presenting with urinary frequency with approximately. 6 voids last evening. Daughter reports observing slurred speech, which may have possibly continued into this morning consistent with a TIA in the setting of know left ICA stenosis. Pt was discharged from this facility on 15 Aug 2018 for similar symptoms. Work up was significant for left carotid stenosis of 80-99% noted on U/S on 14 Aug 2018. Pt has had transient episode of dysarthria , now at his baseline , he reports having episodes of dizziness earlier this year associated w room spinning sometimes , worsening w head turning to the side which is subsided by itself. - Past Medical History Cardio/Vascular: Yes: AFIB (paroxysmal atrial tachy), HTN, Hyperlipdemia Pulmonary: Yes: Other (Smoking disorder) Gastrointestinal: Yes: GERD, Other Hepatobiliary: Yes: Cholelithiasis, Choledocholithiasis, Other (h/o elev lfts) Renal/: Yes: Renal Inusuff, Renal Calculi (recent several weeks ago) Musculoskeletal: Yes: Chronic low back pain Rheumatology: Yes: Gout Endocrine: Yes: Diabetes Mellitus (on januvia) - Past Surgical History Past Surgical History: Yes: Cholecystectomy - Alcohol/Substance Use Hx Alcohol Use: No History of Substance Use: reports: None - Smoking History Smoking history: Former smoker Have you smoked in the past 12 months: No Aproximately how many cigarettes per day: 0 If you are a former smoker, when did you quit?: 2007 - Social History ADL: Independent History of Recent Travel: No Home Medications - Allergies Allergies/Adverse Reactions: Allergies Allergy/AdvReac Type Severity Reaction Status Date / Time No Known Allergies Allergy Verified 09/04/18 16:04 - Home Medications Home Medications: Ambulatory Orders Diltiazem Cd [Cardizem Cd -] 180 mg PO DAILY #30 cap.cd.24h 01/25/14 Allopurinol [Zyloprim -] 100 mg PO DAILY 02/25/14 Warfarin Na [Coumadin -] 4 mg PO DAILY 02/25/14 Glipizide [Glucotrol -] 5 mg PO DAILY #30 tablet 11/18/14 Metoprolol Succinate [Toprol XL -] 25 mg PO BID 11/24/15 Finasteride [Proscar] 5 mg PO DAILY 08/13/18 Fluticasone Prop 0.05% Nasal [Flonase -] 1 - 2 spray NS BID 08/13/18 Pioglitazone HCl 15 mg PO DAILY 08/13/18 Atorvastatin Ca [Lipitor] 20 mg PO HS #30 tablet 08/15/18 Family Disease History - Family Disease History Family Disease History: Other: Mother ( of gallbladder disease) Review of Systems - Review of Systems Constitutional: reports: No Symptoms (All 14 organs reviewe and -ve beside HPI.) Physical Exam-Neuro Vital Signs: Vital Signs Temperature 97.9 F 09/06/18 18:35 Pulse Rate 74 09/06/18 18:35 Respiratory Rate 18 09/06/18 18:35 Blood Pressure 158/79 09/06/18 18:35 O2 Sat by Pulse Oximetry (%) 97 09/06/18 08:14 Constitutional: Yes: Well Nourished, No Distress Neck: Yes: Supple Cardiovascular: Yes: Regular Rate and Rhythm Respiratory: Yes: CTA Bilaterally Musculoskeletal: Yes: WNL Edema: No Psychiatric: Yes: Alert, Oriented Labs: CBC, BMP 09/06/18 05:15 09/06/18 05:15 INR, PTT INR 1.92 (0.83-1.09) H 09/06/18 05:15 - Neuro Exam Level Of Consciousness: Yes: Alert, Oriented to Person, Oriented to Place, Oriented to Time Eyes: Yes: PERRLA Speech: WNL Cranial Nerves II-XII Intact: Yes Gag: Present Babinski: Absent Response to light touch: Normal Response to pain prick: Normal Coordination: Normal: Finger to Nose, Heel to Vivas Motor Strength: 5/5: Left Arm, Right Arm, Left Leg, Right Leg Gait: Normal Imaging - Results MRI: Image Reviewed (No acute events MRA bran BA stenosis) Problem List - Problems (1) Slurred speech Code(s): R47.81 - SLURRED SPEECH (2) Urinary frequency Code(s): R35.0 - FREQUENCY OF MICTURITION (3) Acute on chronic renal failure Code(s): N17.9 - ACUTE KIDNEY FAILURE, UNSPECIFIED; N18.9 - CHRONIC KIDNEY DISEASE, UNSPECIFIED (4) Acute renal failure Code(s): N17.9 - ACUTE KIDNEY FAILURE, UNSPECIFIED (5) Afib Code(s): I48.91 - UNSPECIFIED ATRIAL FIBRILLATION Qualifiers: Atrial fibrillation type: chronic Qualified Code(s): I48.2 - Chronic atrial fibrillation Assessment/Plan 83 y/o male with (+) tobacco history, PAD, HTN, HPL, Afib on warfarin and DMT2; Presenting with transient slurred speech. His sym has resolved ; MRI brain (-); MRA brain BA stenosis ; L ICA stenosis.No focal weakness on exam. Hx and exam suggestive of ? TIA vs infectious encephalopathy . Not a tPA candidate , out of window, on AC , resolving symptoms. L ICA stenosis however pt asyptomatic , evaluation for intervention per vascular sx. Possible BPV VNG as OP Consider vestibular rehab if occurred again Health maintenance per primary team. THX Miky Colin MD [phone]
[2018-09-07] MEDS: INSULIN SLIDING SCALE (NOVOLOG) 1 VIAL SQ SCH ×4 (06:39→21:56)
[2018-09-07 07:43] LABS: BASO % 0.6 % (0-2.0); HEMATOCRIT 41.6 % (35.4-49); HEMOGLOBIN 14.4 GM/dL (11.7-16.9); LYMPH % 32.3 % (8-40); MCH 31.1 pg (25.7-33.7); MCHC 34.7 g/dl (32.0-35.9); MEAN CELL VOLUME 89.6 fl (80-96); MEAN PLT VOLUME 9.3 fl (7.5-11.1); NEUT % 52.1 % (42.8-82.8); PLATELET COUNT 108 K/MM3 (134-434); RBC 4.64 M/mm3 (4.00-5.60); RDW 15.9 % (11.9-15.9); WHITE BLOOD COUNT 7.5 K/mm3 (4.0-10.0)
[2018-09-07 07:49] LABS: ANION GAP 7 MMOL/L (8-16); BLOOD UREA NITROGEN 24 mg/dL (7-18); CALCIUM 8.5 mg/dL (8.5-10.1); CHLORIDE 104 mmol/L (98-107); CO2 29 mmol/L (21-32); CREATININE 1.7 mg/dL (0.55-1.3); GLUCOSE,RANDOM 112 mg/dL (74-106); POTASSIUM 3.7 mmol/L (3.5-5.1); SODIUM 140 mmol/L (136-145)
[2018-09-07 08:14] LABS: INR 1.66 (0.83-1.09); PROTHROMBIN TIME (PATIENT) 19.7 SEC (9.7-13.0)
--- NOTE | 2018-09-07 08:40 | PN ---
Progress Note (short form) - Note Progress Note: 83 y/o male with (+) tobacco history, PAD, HTN, HPL, Afib on warfarin and DMT2; Presenting with urinary frequency with approximately. 6 voids last evening. Daughter reports observing slurred speech, HX of known left ICA stenosis (Seen by DR KRAFT and steve not to be operable) . Pt was discharged from this facility on 15 Aug 2018 for similar symptoms. Work up was significant for left carotid stenosis of 80-99% noted on U/S on 14 Aug 2018. Pt has had transient episode of dysarthria , now at his baseline , he reports having episodes of dizziness earlier this year associated w room spinning sometimes , worsening w head turning to the side which is subsided by itself. 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 A CTA with contrast or MRA with contrast to be considered to assess the percentage of stenosis. No evidence otherwise of aneurysm or intracranial arteriovenous malformation. Impression: Few small vessel infarcts in the white matter of both cerebral hemispheres sequela to hypertension or small vessel atherosclerosis. No evidence acute infarct. No evidence acute intracerebral hemorrhage, subdural fluid collection or hydrocephalus. - Past Medical History Cardio/Vascular: Yes: AFIB (paroxysmal atrial tachy), HTN, Hyperlipdemia Pulmonary: Yes: Other (Smoking disorder) Gastrointestinal: Yes: GERD, Other Hepatobiliary: Yes: Cholelithiasis, Choledocholithiasis, Other (h/o elev lfts) Renal/: Yes: Renal Inusuff, Renal Calculi (recent several weeks ago) Musculoskeletal: Yes: Chronic low back pain Rheumatology: Yes: Gout Endocrine: Yes: Diabetes Mellitus (on januvia) - Past Surgical History Past Surgical History: Yes: Cholecystectomy - Alcohol/Substance Use Hx Alcohol Use: No History of Substance Use: reports: None - Smoking History Smoking history: Former smoker Have you smoked in the past 12 months: No Aproximately how many cigarettes per day: 0 If you are a former smoker, when did you quit?: 2007 - Social History ADL: Independent History of Recent Travel: No Home Medications - Allergies Allergies/Adverse Reactions: Allergies Allergy/AdvReac Type Severity Reaction Status Date / Time No Known Allergies Allergy Verified 09/04/18 16:04 - Home Medications Home Medications: Ambulatory Orders Diltiazem Cd [Cardizem Cd -] 180 mg PO DAILY #30 cap.cd.24h 01/25/14 Allopurinol [Zyloprim -] 100 mg PO DAILY 02/25/14 Warfarin Na [Coumadin -] 4 mg PO DAILY 02/25/14 Glipizide [Glucotrol -] 5 mg PO DAILY #30 tablet 11/18/14 Metoprolol Succinate [Toprol XL -] 25 mg PO BID 11/24/15 Finasteride [Proscar] 5 mg PO DAILY 08/13/18 Fluticasone Prop 0.05% Nasal [Flonase -] 1 - 2 spray NS BID 08/13/18 Pioglitazone HCl 15 mg PO DAILY 08/13/18 Atorvastatin Ca [Lipitor] 20 mg PO HS #30 tablet 08/15/18 Family Disease History - Family Disease History Family Disease History: Other: Mother ( of gallbladder disease) Review of Systems - Review of Systems Constitutional: reports: No Symptoms (All 14 organs reviewe and -ve beside HPI.) Physical Exam-Neuro Vital Signs: Vital Signs Temperature 97.8 F 09/07/18 06:00 Pulse Rate 84 09/07/18 06:00 Respiratory Rate 20 09/07/18 06:00 Blood Pressure 164/83 09/07/18 06:00 O2 Sat by Pulse Oximetry (%) 97 09/07/18 02:00 Constitutional: Yes: Well Nourished, No Distress Neck: Yes: Supple Cardiovascular: Yes: Regular Rate and Rhythm Respiratory: Yes: CTA Bilaterally Musculoskeletal: Yes: WNL Edema: No Psychiatric: Yes: Alert, Oriented Labs: CBC, BMP 09/06/18 05:15 09/06/18 05:15 INR, PTT INR 1.92 (0.83-1.09) H 09/06/18 05:15 - Neuro Exam Level Of Consciousness: Yes: Alert, Oriented to Person, Oriented to Place, Oriented to Time Eyes: Yes: PERRLA Speech: WNL Cranial Nerves II-XII Intact: Yes Gag: Present Babinski: Absent Response to light touch: Normal Response to pain prick: Normal Coordination: Normal: Finger to Nose, Heel to Vivas Motor Strength: 5/5: Left Arm, Right Arm, Left Leg, Right Leg Gait: Normal Imaging - Results MRI: Image Reviewed (No acute events MRA bran BA stenosis) Problem List - Problems (1) Slurred speech Code(s): R47.81 - SLURRED SPEECH (2) Urinary frequency Code(s): R35.0 - FREQUENCY OF MICTURITION (3) Acute on chronic renal failure Code(s): N17.9 - ACUTE KIDNEY FAILURE, UNSPECIFIED; N18.9 - CHRONIC KIDNEY DISEASE, UNSPECIFIED (4) Acute renal failure Code(s): N17.9 - ACUTE KIDNEY FAILURE, UNSPECIFIED (5) Afib Code(s): I48.91 - UNSPECIFIED ATRIAL FIBRILLATION Qualifiers: Atrial fibrillation type: chronic Qualified Code(s): I48.2 - Chronic atrial fibrillation Assessment/Plan 83 y/o male with (+) tobacco history, PAD, HTN, HPL, Afib on warfarin and DMT2; Presenting with transient slurred speech. His sym has resolved ; MRI brain (-); MRA brain mid basilar stenosis ; L ICA stenosis.No focal weakness on exam. possible symptomatic intracranial atheroscelrosis vs carotid disease, although doubt this is amenable to any surgical intervention- can FU with DR BRADLEY as outpt denies cigarettes but has chewed on cigars in the past aggressive BP control TX INR, no clear role with add on ASA , cont statin neurologically cleared can FU outpt DR PATEL [phone]
[2018-09-07] MEDS: ALLOPURINOL 100 MG TABLET (FP) PO SCH (09:33)
[2018-09-07] MEDS: POLYETHYLENE GLYCOL 3350 119 GM BTL PO SCH (09:33)
[2018-09-07] MEDS: metoPROLOL SUCCINATE 25 MG TAB.SR.24H (FP) PO SCH ×2 (09:33→21:56)
--- NOTE | 2018-09-07 09:37 | PN ---
Progress Note (short form) - Note Progress Note: Hospitalist to document today. MRA noted ? severe stenosis basilar artery. Recent carotid sonogram shows severe stenosis left ICA. ? patient will be bridged with lovenox from coumadin if surgery to be performed. Stress test done by Dr. Andre on 09/22/2017; report will be faxed to [facility]. (no evidence of ischemia)
--- NOTE | 2018-09-07 10:24 | CONSULT ---
Admitting History and Physical - Primary Care Physician PCP: [facility] - Admission History of Present Illness: 83 y/o male with (+) tobacco history, PAD, HTN, HPL, Afib on warfarin and DMT2; admitted with transient slurred speech. His symptoms have resolved ; MRI brain (-); MRA brain BA stenosis ; L ICA stenosis.No focal weakness on exam. 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 A CTA with contrast or MRA with contrast to be considered to assess the percentage of stenosis. No evidence otherwise of aneurysm or intracranial arteriovenous malformation. Impression: Few small vessel infarcts in the white matter of both cerebral hemispheres sequela to hypertension or small vessel atherosclerosis. No evidence acute infarct. No evidence acute intracerebral hemorrhage, subdural fluid collection or hydrocephalus. Selected Entries 09/06/18 09/07/18 09/07/18 15:31 02:00 06:00 Breakfast 100% Lunch 100% Temperature 97.4 F L 97.8 F 09/07/18 08:28 Breakfast Lunch Temperature 98.1 F Laboratory Tests 09/07/18 06:20 WBC 7.5 Pt is left hand dominant. Reported to be tolerating reg diet. This is my first consult for this pt. History Source: Patient Limitations to Obtaining History: No Limitations - Past Medical History Cardiovascular: Yes: AFIB (paroxysmal atrial tachy), HTN, Hyperlipdemia Pulmonary: Yes: Other (Smoking disorder) Gastrointestinal: Yes: GERD, Other Hepatobiliary: Yes: Cholelithiasis, Choledocholithiasis, Other (h/o elev lfts) Renal/: Yes: Renal Inusuff, Renal Calculi (recent several weeks ago) Heme/Onc: Yes: Anemia Musculoskeletal: Yes: Chronic low back pain Rheumatology: Yes: Gout Endocrine: Yes: Diabetes Mellitus (on januvia) - Past Surgical History Past Surgical History: Yes: Cholecystectomy - Smoking History Smoking history: Former smoker Have you smoked in the past 12 months: No Aproximately how many cigarettes per day: 0 If you are a former smoker, when did you quit?: 2007 - Alcohol/Substance Use Hx Alcohol Use: No History of Substance Use: reports: None - Social History ADL: Independent History of Recent Travel: No History - Admission Reason For Visit: SLURRED SPEECH - Diagnostics X-ray: Report Reviewed CT Scan: Report Reviewed MRI: Report Reviewed - General Mental Status: Alert and Oriented, Awake and Alert, Able to Follow Commands Attention: Intact Ability to Follow Directions: Excellent Head/Neck Control: WFL - Hearing Hearing: Impaired Hearing Aide: No Speech Evaluation - Communication Primary Language: ROMANIAN Communication: Yes: Within Normal Limits Oral Expression Ability: Yes: No Impairment - Speech Production Able to Make Needs Known: Yes: WNL Intelligibility: Yes: WNL - Speech Characteristics Voice Loudness: Normal Voice Pitch: Yes: Normal Voice Phonatory-based Quality: Yes: Normal Speech Pattern: Normal Speech Clarity: < 100% Nasal Resonance: Normal Articulation: Yes: Precise Rate of Speech: Intact - Language/Auditory Comprehension Follows: Yes: 2 Stage Simple Commands Observation: Able to respond to yes/no queries: Yes, Yes/No Confusion: No, Comprehends Conversational Speech: Yes - Language/Verbal Expression Able to Respond to Simple Queries: Yes: WNL Able to Communicate Wants and Needs: Yes: WNL Functional Communication Status: Yes: WNL - Memory/Perception assisted Memory: Yes: WNL Short Term Memory: Yes: WNL - Swallow Evaluation/Bedside Assessment Current Nutritional Intake: Regular, Thin Liquids Oral Secretions: Yes: WFL Facial Symmetry at Rest: Facial Droop Left (slight?) Facial Symmetry on Retraction: Symmetrical Facial Movement: Controlled Sensation: Normal Against Resistance Opening: Normal Against Resistance Closing: Normal Pucker Lips: Normal Smile: Normal Lingual Movement: Normal, Symmetric Lingual Speed of Movement: Normal Lingual Movement Strgth Against Opposition: Normal Lingual Movement Characteristics: Normal Velopharyngeal Movement: Normal Laryngeal Elevation: WFL Laryngeal Movement: Able to Palpate Rate of Intake: WFL Bolus Size: WFL Labial Seal: WFL Chewing: WFL Oral Prep Time: WFL A-P Transit: WFL Pocketing: None Timing of Swallow: WFL Coughing/Throat Clear: No Change in Voice: No Recommendations - Speech Evaluation, Impression/Plan Impression: Speech, swallowing, cognition, language intact. - Dysphagia Impressions/Plan Swallowing Skills: WFL Dysphagia Impressions: No Impairment *Silent aspiration: cannot be R/O at bedside - Recommendations Diet Consistency: Regular Medication Administration: Whole with water Liquids: Thin Liquids
--- NOTE | 2018-09-07 11:32 | PN ---
Progress Note, Physician Chief Complaint: slurred speech History of Present Illness: no current neuro deficits (all resolved he says) denies any cp or sob at home including walking regularly no palpitations, syncope no cigs - Current Medication List Current Medications: Active Medications Allopurinol (Zyloprim -) 100 mg PO DAILY [facility] Last Admin: 09/07/18 09:33 Dose: 100 mg Atorvastatin Calcium (Lipitor -) 20 mg PO HS [facility] Last Admin: 09/06/18 21:25 Dose: 20 mg Diltiazem HCl (Cardizem Cd -) 180 mg PO DAILY [facility] Last Admin: 09/07/18 09:33 Dose: 180 mg Insulin Aspart (Novolog Vial Sliding Scale -) 1 vial SQ ACHS [facility]; Protocol Last Admin: 09/07/18 06:39 Dose: Not Given Metoprolol Succinate (Toprol Xl -) 25 mg PO BID [facility] Last Admin: 09/07/18 09:33 Dose: 25 mg Polyethylene Glycol (Miralax (For Daily Use) -) 17 gm PO DAILY [facility] Last Admin: 09/07/18 09:33 Dose: Not Given Warfarin Sodium (Coumadin -) 4 mg PO 1800 [facility] Last Admin: 09/06/18 17:11 Dose: 4 mg - Objective Vital Signs: Vital Signs Temperature 98.1 F 09/07/18 08:28 Pulse Rate 84 09/07/18 08:28 Respiratory Rate 20 09/07/18 08:28 Blood Pressure 167/98 09/07/18 08:28 O2 Sat by Pulse Oximetry (%) 97 09/07/18 08:28 Constitutional: Yes: No Distress, Calm Eyes: No: Sclera Icterus HENT: No: Nasal Congestion Cardiovascular: Yes: Pulse Irregular, S1, S2, Other (PMI non diplaced). No: Gallop, Murmur Respiratory: Yes: CTA Bilaterally. No: Accessory Muscle Use, Rales, Wheezes Gastrointestinal: Yes: Normal Bowel Sounds, Soft. No: Tenderness Musculoskeletal: Yes: Other (No kyphosis) Extremities: No: Cold Edema: No Integumentary: No: Jaundice Neurological: Yes: Alert, Oriented (x3) Psychiatric: No: Agitated Labs: CBC, BMP 09/07/18 06:20 09/07/18 06:20 INR, PTT INR 1.66 (0.83-1.09) H 09/07/18 06:20 Assessment/Plan ECG done on 09/04/2018 at 18:40 showed Afib at 98/min with RBBB MPI 09/22/17 (isabel): no ischemic ST changes. no ischemia. nl EF. Echo 09/2017: nl LV/RV; valves WNL Assessment/Plan 83 yo male with multiple CV risk factors including HTN, HPL, DMT2, priot toabcco use and PAD now with symptomatic left ICA stenosis requiring surgical CEA. carotid stenosis, transient slurred speech -neuro eval appreciated: MRI brain (-); MRA brain mid basilar stenosis ; + L ICA stenosis. No focal weakness on exam. -impression is possible symptomatic intracranial atheroscelrosis vs carotid disease, although doubt this is amenable to any surgical intervention- recommended FU with vascular as outpt -AC (no need for add-on aspirin), statin, tight bp control Preoperative evaluation -left carotid stenosis of 80-99% noted on U/S on 14 Aug 2018 -Patient has presumed ASCVD with multiple CV risk factors and documented PAD -nuclear stress test negative 12 months ago, and he has no suspected angina sx' s including with full activity level at home--hence no need to repeat stress test. -acceptable risk for CV complications. -timing of CEA (inpatient? outpatient?) per neuro/vascular surgery Afib -Currently in NSR -On Warfarin at home -INR low here. recent sx's of slurred speech at home ? CVA--not cardioembolic in etiology as his INR was 2.8 on DOA. hence he is not at particularly high risk of cardioembolic CVA at this moment, though his CHADS VASC score = 4-->6 in light of the CVA and this prediction algorithm does not factor in the etiology of the stroke. -hence rec bridge with lovenox or UFH gtt until INR is 2.0 or higher (GFR > 30-- ok for lovenox). wt here 93 kg, will start lovenox 90 mg bid HTN -bp's mostly 150s-160s -for tight bp targets per neuro (no acute CVA suspected) -on metoprolol and Cardizem for bp and AF rate control -hesitant to add RAAS blockers given age, creat and low GFR (and uncertain details of past intolerances) -hesitant to stop or decr either AVN keisha since details of pt's AF rate control (and which, if either, med controls him best) not available -for now, will incr diltiazem 180 to 240 qd -observe bp trend--outpatient f/u with dr martins appropriate for further bp med titratino HPL -Continue Atorva 20mg daily DM -Management as per primary team
[2018-09-07] MEDS: ENOXAPARIN NA (PORCINE) 100 MG/1 ML DISP.SYRIN SQ SCH (14:40)
--- NOTE | 2018-09-07 16:52 | PN ---
Progress Note (short form) - Note Progress Note: SUBJECTIVE: Feels better - no further slurring of speech. Denies any visual disturbance, limb numbness/weakness/tingling. OBJECTIVE: Afebrile, Hemodynamically Stable. Last Vital Signs Temp Pulse Resp BP Pulse Ox 97.5 F L 68 16 141/94 97 09/07/18 13:40 09/07/18 13:40 09/07/18 13:40 09/07/18 13:40 09/07/18 08:28 HEENT - Atraumatic, Normocephalic Heart - S1, S2, RRR Lungs - clear to auscultation abdomen - Soft, non-tender. Bowel Sounds normal. Extremities - No calf tenderness. Neuro - AAO x 3. Tone/Power normal all 4 extremities. Laboratory Results - last 24 hr 09/06/18 09/06/18 09/07/18 17:08 21:21 06:20 WBC 7.5 RBC 4.64 Hgb 14.4 Hct 41.6 MCV 89.6 MCH 31.1 MCHC 34.7 RDW 15.9 Plt Count 108 L MPV 9.3 Absolute Neuts (auto) 3.9 Neutrophils % 52.1 Lymphocytes % 32.3 Monocytes % 10.0 Eosinophils % 5.0 H Basophils % 0.6 Nucleated RBC % 0 PT with INR INR Sodium Potassium Chloride Carbon Dioxide Anion Gap BUN Creatinine Creat Clearance w eGFR POC Glucometer 158 237 Random Glucose Calcium 09/07/18 09/07/18 09/07/18 06:20 06:20 06:37 WBC RBC Hgb Hct MCV MCH MCHC RDW Plt Count MPV Absolute Neuts (auto) Neutrophils % Lymphocytes % Monocytes % Eosinophils % Basophils % Nucleated RBC % PT with INR 19.70 H INR 1.66 H Sodium 140 Potassium 3.7 Chloride 104 Carbon Dioxide 29 Anion Gap 7 L BUN 24 H Creatinine 1.7 H Creat Clearance w eGFR 38.50 POC Glucometer 123 Random Glucose 112 H Calcium 8.5 09/07/18 11:17 WBC RBC Hgb Hct MCV MCH MCHC RDW Plt Count MPV Absolute Neuts (auto) Neutrophils % Lymphocytes % Monocytes % Eosinophils % Basophils % Nucleated RBC % PT with INR INR Sodium Potassium Chloride Carbon Dioxide Anion Gap BUN Creatinine Creat Clearance w eGFR POC Glucometer 245 Random Glucose Calcium Current Medications Generic Name Dose Route Start Last Admin Trade Name Freq PRN Reason Stop Dose Admin Allopurinol 100 mg 09/05/18 10:00 09/07/18 09:33 Zyloprim - PO 100 mg DAILY RAAFT Administration Atorvastatin Calcium 20 mg 09/05/18 22:00 09/06/18 21:25 Lipitor - PO 20 mg HS RAFAT Administration Diltiazem HCl 240 mg 09/08/18 10:00 Cardizem Cd - PO DAILY RAFAT Enoxaparin Sodium 90 mg 09/07/18 12:45 09/07/18 14:40 Lovenox - SQ 90 mg Q12H RAFAT Administration Insulin Aspart 1 vial 09/05/18 01:00 09/07/18 11:58 Novolog Vial Sliding Scale - SQ 4 unit ACHS RAFAT Administration Protocol Metoprolol Succinate 25 mg 09/05/18 10:00 09/07/18 09:33 Toprol Xl - PO 25 mg BID RAFAT Administration Polyethylene Glycol 17 gm 09/05/18 10:00 09/07/18 09:33 Miralax (For Daily Use) - PO Not Given DAILY [facility] Warfarin Sodium 4 mg 09/06/18 18:00 09/06/18 17:11 Coumadin - PO 4 mg 1800 RAFAT Administration ASSESSMENT/PLAN 83 year old male with HTN, HLD, DM2, PAD, GERD, Atrial Fibrillation (on Coumadin ), Gout, BPH presented with recurrent episodes of slurring of speech, found to have left ICA stenosis. 1. TIA with recurrent focal neuro symptoms/sign of slurring of speech MRI Brain neg MRA Brain - mid basilar stenosis and L ICA stenosis, 80-99% on Carotid Duplex. Evaluated by Cardiology and Vascular Surgery - For Carotid Endarterectomy. CTA Neck requested by Vascular Sx Negative NM Stress 1 year ago - no need for repeat work-up prior to surgery as per Cardio. 2. Paroxysmal Atrial Fibrillation, now in SR On Coumadin with Lovenox bridging for sub-therapeutic INR. Will hold Coumadin tonight given planned surgery. 3. HTN - on higher end. Continue Metoprolol and Cardizem, up-titration as per Cardiology. 4. HLD - Continue Statin 5. DM 2 - Continue Novolog sliding scale. DVT Px - on Lovenox. Visit type - Emergency Visit Emergency Visit: Yes ED Registration Date: 09/07/18 Care time: The patient presented to the Emergency Department on the above date and was hospitalized for further evaluation of their emergent condition. - New Patient This patient is new to me today: Yes Date on this admission: 09/07/18 - Critical Care Critical Care patient: No - Discharge Referral Referred to [facility] No
[2018-09-07] MEDS ORDERED: SODIUM CHLORIDE 1,000 ML IV SCH (17:00)
--- NOTE | 2018-09-07 17:48 | PN ---
Progress Note (short form) - Note Progress Note: Exam unchanged. Discussed with Dr. Nelson. In light of worsening left ICA stenosis with new symptoms, left carotid endarterectomy is recommended for stroke prophylaxis. Will get CTA of neck to better assess left ICA before making final decision. IV hydration started in hopes creatinine will diminish. Recheck INR in AM - patient received Coumadin yesterday.
[2018-09-07] MEDS: SODIUM CHLORIDE 0.45% 1,000 ML IV SCH (17:52)
[2018-09-07] MEDS: ATORVASTATIN CA 20 MG TABLET (FP) PO SCH (21:56)
[2018-09-08] MEDS: ENOXAPARIN NA (PORCINE) 100 MG/1 ML DISP.SYRIN SQ SCH (00:44)
[2018-09-08] MEDS: INSULIN SLIDING SCALE (NOVOLOG) 1 VIAL SQ SCH ×4 (06:10→22:56)
[2018-09-08 07:09] LABS: INR 1.73 (0.83-1.09); PROTHROMBIN TIME (PATIENT) 20.5 SEC (9.7-13.0)
[2018-09-08 07:14] LABS: BASO % 0.6 % (0-2.0); EOS % 5.3 % (0-4.5); HEMATOCRIT 41.2 % (35.4-49); HEMOGLOBIN 14.6 GM/dL (11.7-16.9); MCH 31.4 pg (25.7-33.7); MCHC 35.4 g/dl (32.0-35.9); MEAN CELL VOLUME 88.7 fl (80-96); MEAN PLT VOLUME 9.1 fl (7.5-11.1); MONO % 8.7 % (3.8-10.2); NEUT % 51.4 % (42.8-82.8); PLATELET COUNT 112 K/MM3 (134-434); RBC 4.65 M/mm3 (4.00-5.60); WHITE BLOOD COUNT 7.4 K/mm3 (4.0-10.0)
[2018-09-08 08:21] LABS: ANION GAP 5 MMOL/L (8-16); BLOOD UREA NITROGEN 24 mg/dL (7-18); CALCIUM 8.4 mg/dL (8.5-10.1); CHLORIDE 103 mmol/L (98-107); CO2 32 mmol/L (21-32); CREATININE 1.5 mg/dL (0.55-1.3); GLUCOSE,RANDOM 107 mg/dL (74-106); POTASSIUM 3.8 mmol/L (3.5-5.1); SODIUM 140 mmol/L (136-145)
--- NOTE | 2018-09-08 08:30 | PN ---
Progress Note (short form) - Note Progress Note: VSS No new events Await AM labs to decide on CTA Will schedule for left carotid endarterectomy in AM. Risks of surgery including , but not limited to, stroke, NC, bleeding, infection discussed.
[2018-09-08] MEDS: ALLOPURINOL 100 MG TABLET (FP) PO SCH (09:47)
[2018-09-08] MEDS: metoPROLOL SUCCINATE 25 MG TAB.SR.24H (FP) PO SCH ×2 (09:47→22:36)
[2018-09-08] MEDS: POLYETHYLENE GLYCOL 3350 119 GM BTL PO SCH (09:49)
[2018-09-08] MEDS: SODIUM CHLORIDE 0.45% 1,000 ML IV SCH ×2 (10:10→17:20)
--- NOTE | 2018-09-08 10:11 | PN ---
Progress Note (short form) - Note Progress Note: s: no chest pain, palps, dyspnea, edema Current Medications Allopurinol (Zyloprim -) 100 mg PO DAILY [facility] Last Admin: 09/08/18 09:47 Dose: 100 mg Atorvastatin Calcium (Lipitor -) 20 mg PO HS [facility] Last Admin: 09/07/18 21:56 Dose: 20 mg Diltiazem HCl (Cardizem Cd -) 240 mg PO DAILY [facility] Last Admin: 09/08/18 09:47 Dose: 240 mg Enoxaparin Sodium (Lovenox -) 90 mg SQ Q12H [facility] Last Admin: 09/08/18 00:44 Dose: 90 mg Sodium Chloride (1/2 Normal Saline) 1,000 mls @ 60 mls/hr IV ASDIR [facility] Last Admin: 09/07/18 17:52 Dose: 60 mls/hr Insulin Aspart (Novolog Vial Sliding Scale -) 1 vial SQ ACHS [facility]; Protocol Last Admin: 09/08/18 06:10 Dose: Not Given Metoprolol Succinate (Toprol Xl -) 25 mg PO BID [facility] Last Admin: 09/08/18 09:47 Dose: 25 mg Polyethylene Glycol (Miralax (For Daily Use) -) 17 gm PO DAILY [facility] Last Admin: 09/08/18 09:49 Dose: Not Given - Objective Vital Signs Period Temp Pulse Resp BP Sys/Seaman Pulse Ox Last 24 Hr 97.1 F-97.9 F 68-89 16-20 141-164/82-99 97-98 Constitutional: Yes: No Distress, Calm Eyes: No: Sclera Icterus HENT: No: Nasal Congestion Cardiovascular: Yes: Pulse Irregular, S1, S2, Other (PMI non diplaced). No: Gallop, Murmur Respiratory: Yes: CTA Bilaterally. No: Accessory Muscle Use, Rales, Wheezes Gastrointestinal: Yes: Normal Bowel Sounds, Soft. No: Tenderness Musculoskeletal: Yes: Other (No kyphosis) Extremities: No: Cold Edema: No Integumentary: No: Jaundice Neurological: Yes: Alert, Oriented (x3) Psychiatric: No: Agitated Assessment/Plan ECG done on 09/04/2018 at 18:40 showed Afib at 98/min with RBBB MPI 09/22/17 (isabel): no ischemic ST changes. no ischemia. nl EF. Echo 09/2017: nl LV/RV; valves WNL tele: afib, rate controlled Assessment/Plan 83 yo male with multiple CV risk factors including HTN, HPL, DMT2, priot toabcco use and PAD now with symptomatic left ICA stenosis requiring surgical CEA. carotid stenosis, transient slurred speech -neuro eval appreciated: MRI brain (-); MRA brain mid basilar stenosis ; + L ICA stenosis. No focal weakness on exam. -impression is possible symptomatic intracranial atheroscelrosis vs carotid disease - vascular following with planned L CEA Wed AM -AC (no need for add-on aspirin), statin, tight bp control Preoperative evaluation -left carotid stenosis of 80-99% noted on U/S on 14 Aug 2018 -Patient has presumed ASCVD with multiple CV risk factors and documented PAD -nuclear stress test negative 12 months ago, and he has no suspected angina sx' s including with full activity level at home--hence no need to repeat stress test. -acceptable risk for CV complications. Afib -Currently in NSR -On Warfarin at home -INR low here. recent sx's of slurred speech at home ? CVA--not cardioembolic in etiology as his INR was 2.8 on DOA. hence he is not at particularly high risk of cardioembolic CVA at this moment, though his CHADS VASC score = 4-->6 in light of the CVA and this prediction algorithm does not factor in the etiology of the stroke. -hence rec bridge with lovenox or UFH gtt until INR is 2.0 or higher (GFR > 30-- ok for lovenox). wt here 93 kg, cont lovenox 90 mg BID HTN -bp's mostly 150s-160s -for tight bp targets per neuro (no acute CVA suspected) -on metoprolol and Cardizem for bp and AF rate control -hesitant to add RAAS blockers given age, creat and low GFR (and uncertain details of past intolerances) -hesitant to stop or decr either AVN keisha since details of pt's AF rate control (and which, if either, med controls him best) not available - diltiazem increased 180 to 240 qd -observe bp trend HPL -Continue Atorva 20mg daily DM -Management as per primary team
--- NOTE | 2018-09-08 10:40 | PN ---
Progress Note (short form) - Note Progress Note: Hospitalist to document today. Dr. Cisneros is tentatively scheduling left carotid endarterectomy for tomorrow. CTA ordered and current BUN 24 and Creatinine 1.5. He was placed on IV fluids by the surgeon. INR 1.73 and no coumadin for 3 days. He was placed on Lovenox BID by cardiology yesterday as a bridge. I will D/C tonite's dose and D/C Rx for now if the surgery is indeed completed Friday AM. BP improved on modification of BP meds.
--- NOTE | 2018-09-08 11:19 | PN ---
Progress Note (short form) - Note Progress Note: SUBJECTIVE: Feels better - no further slurring of speech. Denies any visual disturbance, limb numbness/weakness/tingling. No headache/lightheadedness/ dizziness. OBJECTIVE: Afebrile, Hemodynamically Stable. Last Vital Signs Temp Pulse Resp BP Pulse Ox 97.8 F 90 20 141/84 98 09/08/18 10:00 09/08/18 10:00 09/08/18 10:00 09/08/18 10:00 09/08/18 08:27 HEENT - Atraumatic, Normocephalic Heart - S1, S2, RRR Lungs - clear to auscultation abdomen - Soft, non-tender. Bowel Sounds normal. Extremities - No calf tenderness. Neuro - AAO x 3. Tone/Power normal all 4 extremities. Laboratory Results - last 24 hr 09/07/18 09/07/18 09/07/18 11:17 17:07 21:55 WBC RBC Hgb Hct MCV MCH MCHC RDW Plt Count MPV Absolute Neuts (auto) Neutrophils % Lymphocytes % Monocytes % Eosinophils % Basophils % Nucleated RBC % PT with INR INR Sodium Potassium Chloride Carbon Dioxide Anion Gap BUN Creatinine Creat Clearance w eGFR POC Glucometer 245 129 199 Random Glucose Calcium 09/08/18 09/08/18 09/08/18 05:26 06:30 06:30 WBC 7.4 RBC 4.65 Hgb 14.6 Hct 41.2 MCV 88.7 MCH 31.4 MCHC 35.4 RDW 16.0 H Plt Count 112 L MPV 9.1 Absolute Neuts (auto) 3.8 Neutrophils % 51.4 Lymphocytes % 34.0 Monocytes % 8.7 Eosinophils % 5.3 H Basophils % 0.6 Nucleated RBC % 0 PT with INR INR Sodium 140 Potassium 3.8 Chloride 103 Carbon Dioxide 32 Anion Gap 5 L BUN 24 H Creatinine 1.5 H Creat Clearance w eGFR 44.48 POC Glucometer 105 Random Glucose 107 H Calcium 8.4 L 09/08/18 06:30 WBC RBC Hgb Hct MCV MCH MCHC RDW Plt Count MPV Absolute Neuts (auto) Neutrophils % Lymphocytes % Monocytes % Eosinophils % Basophils % Nucleated RBC % PT with INR 20.50 H INR 1.73 H Sodium Potassium Chloride Carbon Dioxide Anion Gap BUN Creatinine Creat Clearance w eGFR POC Glucometer Random Glucose Calcium Current Medications Generic Name Dose Route Start Last Admin Trade Name Kelli PRN Reason Stop Dose Admin Allopurinol 100 mg 09/05/18 10:00 09/08/18 09:47 Zyloprim - PO 100 mg DAILY RAFAT Administration Atorvastatin Calcium 20 mg 09/05/18 22:00 09/07/18 21:56 Lipitor - PO 20 mg HS RAFAT Administration Diltiazem HCl 240 mg 09/08/18 10:00 09/08/18 09:47 Cardizem Cd - PO 240 mg DAILY RAFAT Administration Sodium Chloride 1,000 mls @ 60 mls/hr 09/07/18 17:45 09/07/18 17:52 1/2 Normal Saline IV 60 mls/hr ASDIR RAFAT Administration Insulin Aspart 1 vial 09/05/18 01:00 09/08/18 06:10 Novolog Vial Sliding Scale - SQ Not Given ACHS RAFAT Protocol Metoprolol Succinate 25 mg 09/05/18 10:00 09/08/18 09:47 Toprol Xl - PO 25 mg BID RAFAT Administration Polyethylene Glycol 17 gm 09/05/18 10:00 09/08/18 09:49 Miralax (For Daily Use) - PO Not Given DAILY RAFAT ASSESSMENT/PLAN 83 year old male with HTN, HLD, DM2, PAD, GERD, Atrial Fibrillation (on Coumadin ), Gout, BPH presented with recurrent episodes of slurring of speech, found to have left ICA stenosis. 1. TIA with recurrent focal neuro symptoms/signs of slurring of speech MRI Brain neg MRA Brain - mid basilar stenosis and L ICA stenosis, 80-99% on Carotid Duplex. Evaluated by Cardiology and Vascular Surgery - For Carotid Endarterectomy scheduled 09/09/18 CTA Neck requested by Vascular Sx - pending. Elise-contrast gentle IV hydration. Negative NM Stress 1 year ago - no need for repeat work-up prior to surgery as per Cardio. 2. Paroxysmal Atrial Fibrillation, now in SR Normally on Coumadin - now held with therapeutic Lovenox scheduled given plans for surgical intervention. 3. HTN - Continue Metoprolol and Cardizem, up-titration as per Cardiology. 4. HLD - Continue Statin 5. DM 2 - Continue Novolog sliding scale. DVT Px - on Lovenox. Visit type - Emergency Visit Emergency Visit: Yes ED Registration Date: 09/07/18 Care time: The patient presented to the Emergency Department on the above date and was hospitalized for further evaluation of their emergent condition. - New Patient This patient is new to me today: No - Critical Care Critical Care patient: No - Discharge Referral Referred to [facility] Med [facility].: No
--- NOTE | 2018-09-08 13:35 | PN ---
Progress Note, [employer] - Note Progress Note: Selected Entries 09/07/18 09/07/18 09/07/18 08:30 09:45 13:40 Breakfast 100% 100% Lunch 100% Supper Temperature 09/07/18 09/08/18 09/08/18 18:00 02:00 06:00 Breakfast Lunch Supper 100% Temperature 97.9 F 97.1 F L 09/08/18 10:00 Breakfast Lunch Supper Temperature 97.8 F Laboratory Tests 09/08/18 06:30 WBC 7.4 Tolerating diet. Neurologically stable. For left carotid endarterectomy
--- NOTE | 2018-09-08 13:53 | EKG ---
Test Reason : Blood Pressure : / mmHG Vent. Rate : 083 BPM Atrial Rate : 083 BPM P-R Int : 180 ms QRS Dur : 130 ms QT Int : 422 ms P-R-T Axes : 058 024 007 degrees QTc Int : 495 ms SINUS RHYTHM WITH PREMATURE ATRIAL COMPLEXES POSSIBLE LEFT ATRIAL ENLARGEMENT RIGHT BUNDLE BRANCH BLOCK POSSIBLE INFERIOR INFARCT , AGE UNDETERMINED ABNORMAL ECG WHEN COMPARED WITH ECG OF 04-SEP-2018 23:23, SINUS RHYTHM HAS REPLACED ATRIAL FIBRILLATION CRITERIA FOR SEPTAL INFARCT ARE NO LONGER PRESENT NON-SPECIFIC CHANGE IN ST SEGMENT IN ANTERIOR LEADS NONSPECIFIC T WAVE ABNORMALITY NO LONGER EVIDENT IN ANTERIOR LEADS Confirmed by MD Jose, Javed ([id number]) on 09/08/2018 1:53:20 PM Referred By: Mindi MITCHELL Confirmed By:Javed Garcia MD
--- NOTE | 2018-09-08 13:59 | EKG ---
Test Reason : Blood Pressure : / mmHG Vent. Rate : 098 BPM Atrial Rate : 441 BPM P-R Int : 000 ms QRS Dur : 132 ms QT Int : 410 ms P-R-T Axes : 000 036 -14 degrees QTc Int : 523 ms ATRIAL FIBRILLATION RIGHT BUNDLE BRANCH BLOCK ABNORMAL ECG WHEN COMPARED WITH ECG OF 13-AUG-2018 16:43, ATRIAL FIBRILLATION HAS REPLACED SINUS RHYTHM T WAVE INVERSION LESS EVIDENT IN INFERIOR LEADS NONSPECIFIC T WAVE ABNORMALITY NO LONGER EVIDENT IN LATERAL LEADS Confirmed by MD Jose, Javed ([id number]) on 09/08/2018 1:59:01 PM Referred By: Confirmed By:Javed Garcia MD
--- NOTE | 2018-09-08 16:24 | PN ---
Progress Note (short form) - Note Progress Note: 83 y/o male with (+) tobacco history, PAD, HTN, HPL, Afib on warfarin and DMT2; Presenting with urinary frequency with approximately. 6 voids last evening. Daughter reports observing slurred speech, HX of known left ICA stenosis (Seen by DR KRAFT and steve not to be operable) . Pt was discharged from this facility on 15 Aug 2018 for similar symptoms. Work up was significant for left carotid stenosis of 80-99% noted on U/S on 14 Aug 2018. Pt has had transient episode of dysarthria , now at his baseline , he reports having episodes of dizziness earlier this year associated w room spinning sometimes , worsening w head turning to the side which is subsided by itself. FU : planning for L CEA in AM AC on hold no new SX CTA -results P , prelim 75% carotid bulb L stenosis, eccentric non-calcified plaque, mid basilar severe stenosis, distal MRI reviewed Impression: Suspicious finding of severe stenotic lesion mid aspect of the basilar artery. A CTA with contrast or MRA with contrast to be considered to assess the percentage of stenosis. No evidence otherwise of aneurysm or intracranial arteriovenous malformation. Impression: Few small vessel infarcts in the white matter of both cerebral hemispheres sequela to hypertension or small vessel atherosclerosis. No evidence acute infarct. No evidence acute intracerebral hemorrhage, subdural fluid collection or hydrocephalus. - Past Medical History Cardio/Vascular: Yes: AFIB (paroxysmal atrial tachy), HTN, Hyperlipdemia Pulmonary: Yes: Other (Smoking disorder) Gastrointestinal: Yes: GERD, Other Hepatobiliary: Yes: Cholelithiasis, Choledocholithiasis, Other (h/o elev lfts) Renal/: Yes: Renal Inusuff, Renal Calculi (recent several weeks ago) Musculoskeletal: Yes: Chronic low back pain Rheumatology: Yes: Gout Endocrine: Yes: Diabetes Mellitus (on januvia) - Past Surgical History Past Surgical History: Yes: Cholecystectomy - Alcohol/Substance Use Hx Alcohol Use: No History of Substance Use: reports: None - Smoking History Smoking history: Former smoker Have you smoked in the past 12 months: No Aproximately how many cigarettes per day: 0 If you are a former smoker, when did you quit?: 2007 - Social History ADL: Independent History of Recent Travel: No Home Medications - Allergies Allergies/Adverse Reactions: Allergies Allergy/AdvReac Type Severity Reaction Status Date / Time No Known Allergies Allergy Verified 09/04/18 16:04 - Home Medications Home Medications: Ambulatory Orders Diltiazem Cd [Cardizem Cd -] 180 mg PO DAILY #30 cap.cd.24h 01/25/14 Allopurinol [Zyloprim -] 100 mg PO DAILY 02/25/14 Warfarin Na [Coumadin -] 4 mg PO DAILY 02/25/14 Glipizide [Glucotrol -] 5 mg PO DAILY #30 tablet 11/18/14 Metoprolol Succinate [Toprol XL -] 25 mg PO BID 11/24/15 Finasteride [Proscar] 5 mg PO DAILY 08/13/18 Fluticasone Prop 0.05% Nasal [Flonase -] 1 - 2 spray NS BID 08/13/18 Pioglitazone HCl 15 mg PO DAILY 08/13/18 Atorvastatin Ca [Lipitor] 20 mg PO HS #30 tablet 08/15/18 Family Disease History - Family Disease History Family Disease History: Other: Mother ( of gallbladder disease) Review of Systems - Review of Systems Constitutional: reports: No Symptoms (All 14 organs reviewe and -ve beside HPI.) Physical Exam-Neuro Vital Signs: Vital Signs Temperature 98.3 F 09/08/18 14:00 Pulse Rate 92 H 09/08/18 14:00 Respiratory Rate 20 09/08/18 14:00 Blood Pressure 149/72 09/08/18 14:00 O2 Sat by Pulse Oximetry (%) 98 09/08/18 08:27 Constitutional: Yes: Well Nourished, No Distress Neck: Yes: Supple Cardiovascular: Yes: Regular Rate and Rhythm Respiratory: Yes: CTA Bilaterally Musculoskeletal: Yes: WNL Edema: No Psychiatric: Yes: Alert, Oriented Labs: CBC, BMP 09/06/18 05:15 09/06/18 05:15 INR, PTT INR 1.92 (0.83-1.09) H 09/06/18 05:15 - Neuro Exam Level Of Consciousness: Yes: Alert, Oriented to Person, Oriented to Place, Oriented to Time Eyes: Yes: PERRLA Speech: WNL Cranial Nerves II-XII Intact: Yes Gag: Present Babinski: Absent Response to light touch: Normal Response to pain prick: Normal Coordination: Normal: Finger to Nose, Heel to Vivas Motor Strength: 5/5: Left Arm, Right Arm, Left Leg, Right Leg Gait: Normal Imaging - Results MRI: Image Reviewed (No acute events MRA bran BA stenosis) Problem List - Problems (1) Slurred speech Code(s): R47.81 - SLURRED SPEECH (2) Urinary frequency Code(s): R35.0 - FREQUENCY OF MICTURITION (3) Acute on chronic renal failure Code(s): N17.9 - ACUTE KIDNEY FAILURE, UNSPECIFIED; N18.9 - CHRONIC KIDNEY DISEASE, UNSPECIFIED (4) Acute renal failure Code(s): N17.9 - ACUTE KIDNEY FAILURE, UNSPECIFIED (5) Afib Code(s): I48.91 - UNSPECIFIED ATRIAL FIBRILLATION Qualifiers: Atrial fibrillation type: chronic Qualified Code(s): I48.2 - Chronic atrial fibrillation Assessment/Plan 83 y/o male with (+) tobacco history, PAD, HTN, HPL, Afib on warfarin and DMT2; Presenting with transient slurred speech. His sym has resolved ; MRI brain (-); MRA brain mid basilar stenosis ; L ICA stenosis.No focal weakness on exam. possible symptomatic carotid stenosis L , along with intracranial basilar stenosis BP opimization spoke to radiology and vasc re CTA results planning for L CEA given recent SX resume AC post procedure DR PATEL
--- NOTE | 2018-09-08 21:15 | SPA.PREOP ---
- PRE-OP NOTE Dx: TIAs, Left Carotid stenosis Planned Procedure: Left Carotid Endarterectomy Surgeon: Grant Falk Last Vital Signs Temp Pulse Resp BP Pulse Ox 97.4 F L 58 L 20 131/77 98 09/08/18 18:00 09/08/18 18:00 09/08/18 18:00 09/08/18 18:00 09/08/18 08:27 Lab Results WBC 7.4 K/mm3 (4.0-10.0) 09/08/18 06:30 RBC 4.65 M/mm3 (4.00-5.60) 09/08/18 06:30 Hgb 14.6 GM/dL (11.7-16.9) 09/08/18 06:30 Hct 41.2 % (35.4-49) 09/08/18 06:30 MCV 88.7 fl (80-96) 09/08/18 06:30 MCHC 35.4 g/dl (32.0-35.9) 09/08/18 06:30 RDW 16.0 % (11.9-15.9) H 09/08/18 06:30 Plt Count 112 K/MM3 (134-434) L 09/08/18 06:30 Sodium 140 mmol/L (136-145) 09/08/18 06:30 Potassium 3.8 mmol/L (3.5-5.1) 09/08/18 06:30 Chloride 103 mmol/L (98-107) 09/08/18 06:30 Carbon Dioxide 32 mmol/L (21-32) 09/08/18 06:30 Anion Gap 5 MMOL/L (8-16) L 09/08/18 06:30 BUN 24 mg/dL (7-18) H 09/08/18 06:30 Creatinine 1.5 mg/dL (0.55-1.3) H 09/08/18 06:30 Random Glucose 107 mg/dL (74-106) H 09/08/18 06:30 Calcium 8.4 mg/dL (8.5-10.1) L 09/08/18 06:30 INR 1.73 (0.83-1.09) H 09/08/18 06:30 - IMAGING Chest X-ray: Report Reviewed, Image Reviewed Cat Scan: Report Reviewed, Image Reviewed MRI: Report Reviewed, Image Reviewed EKG: Report Reviewed, Image Reviewed Problem List - Problems (1) Carotid artery stenosis Assessment/Plan: 1. NPO after midnight except po meds 2. GI/DVT PPX 3. Medical optimization / clearance 4. Consent to be obtained by surgeon after risks, benefits and alternatives discussed with patient and or Health Care Proxy. Code(s): I65.29 - OCCLUSION AND STENOSIS OF UNSPECIFIED CAROTID ARTERY Qualifiers: Laterality: left Qualified Code(s): I65.22 - Occlusion and stenosis of left carotid artery (2) Afib Code(s): I48.91 - UNSPECIFIED ATRIAL FIBRILLATION Qualifiers: Atrial fibrillation type: chronic Qualified Code(s): I48.2 - Chronic atrial fibrillation (3) Diabetes Code(s): E11.9 - TYPE 2 DIABETES MELLITUS WITHOUT COMPLICATIONS Qualifiers: Diabetes mellitus type: type 2 Diabetes mellitus mcfp insulin use: without mcfp use Diabetes mellitus complication status: with kidney complications Diabetes mellitus complication detail: with chronic kidney disease Chronic kidney disease stage: stage 3 (moderate) Qualified Code(s): E11.22 - Type 2 diabetes mellitus with diabetic chronic kidney disease; N18.3 - Chronic kidney disease, stage 3 (moderate) Visit type - Case Type Case Type: ED Admission - Emergency Emergency Visit: Yes ED Registration Date: 09/07/18 Care time: The patient presented to the Emergency Department on the above date and was hospitalized for further evaluation of their emergent condition.
[2018-09-08] MEDS ORDERED: CHLORHEXIDINE GLUCONATE 4% CLEANSER FOR DECOLONIZATION TP SCH (22:00)
[2018-09-08] MEDS: ATORVASTATIN CA 20 MG TABLET (FP) PO SCH (22:47)
[2018-09-09] MEDS: INSULIN SLIDING SCALE (NOVOLOG) 1 VIAL SQ SCH ×3 (06:06→23:01)
[2018-09-09 06:21] LABS: INR 1.3 (0.83-1.09); PROTHROMBIN TIME (PATIENT) 15.4 SEC (9.7-13.0)
[2018-09-09 06:43] LABS: ANION GAP 6 MMOL/L (8-16); BLOOD UREA NITROGEN 24 mg/dL (7-18); CALCIUM 8.7 mg/dL (8.5-10.1); CHLORIDE 103 mmol/L (98-107); CO2 29 mmol/L (21-32); CREATININE 1.7 mg/dL (0.55-1.3); GLUCOSE,RANDOM 114 mg/dL (74-106); POTASSIUM 3.9 mmol/L (3.5-5.1); SODIUM 138 mmol/L (136-145)
[2018-09-09] MEDS ORDERED: LIDOCAINE HCL 0.5%, 5 MG/ML (50mL SDVIAL) ONE (07:32)
[2018-09-09] MEDS ORDERED: HEPARIN NA (PORCINE) 5,000 UNITS/ML 1ML VIAL ONE ×2 (07:32→09:56)
[2018-09-09] MEDS ORDERED: LIDOCAINE HCL 1%, 10 MG/ML (20ML VIAL) ONE (07:32)
[2018-09-09] MEDS ORDERED: ETOMIDATE 20 MG/10 ML AMPUL IVPUSH ONE (08:13)
[2018-09-09] MEDS ORDERED: fentaNYL CITRATE 250 MCG/5 ML VIAL ONE (08:13)
[2018-09-09] MEDS ORDERED: LIDOCAINE HCL/PF 2% SDV 5ML VIAL ONE ×2 (08:13→09:18)
[2018-09-09] MEDS ORDERED: PROPOFOL 20 ML ONE ×2 (08:13)
[2018-09-09] MEDS ORDERED: MIDAZOLAM HCL 2 MG/2 ML SINGLE DOSE VIAL ONE (08:13)
[2018-09-09] MEDS ORDERED: CEFAZOLIN 2 GM/D5W 2 GM/50 ML ML IVPB ONE ×2 (08:15→11:45)
[2018-09-09] MEDS ORDERED: PHENYLEPHRINE HCL 10 MG/1 ML SINGLE DOSE VIAL ONE (08:15)
[2018-09-09] MEDS ORDERED: ROCURONIUM BROMIDE 50 MG/5 ML VIAL ONE (08:16)
[2018-09-09] MEDS ORDERED: ceFAZolin SODIUM 1 GM VIAL IVPB ONE (08:59)
[2018-09-09] MEDS ORDERED: ePHEDrine SULFATE 50 MG/1 ML AMPULE ONE (09:00)
[2018-09-09] MEDS ORDERED: DEXAMETHASONE SOD PHOSPHATE 4 MG/1 ML VIAL ONE (09:18)
[2018-09-09] MEDS ORDERED: HEPARIN NA (PORCINE) 5,000 UNITS/ML 1ML VIAL TP ONE (09:18)
[2018-09-09] MEDS ORDERED: NEOSTIGMINE METHYLSULFATE 0.5 MG/ML - 10 ML MDV ONE ×2 (09:28→10:10)
[2018-09-09] MEDS ORDERED: LIDOCAINE HCL 0.5%, 5 MG/ML (50mL SDVIAL) PNB ONE (09:45)
[2018-09-09] MEDS ORDERED: LABETALOL HCL 5 MG/1 ML (100MG/20 ML VIAL) IVPUSH ONE (09:55)
[2018-09-09] MEDS ORDERED: GLYCOPYRROLATE 0.2 MG/1 ML VIAL ONE (10:27)
[2018-09-09] MEDS ORDERED: POVIDONE-IODINE OINTMENT 10% - 28.4 GM TUBE ONE (10:58)
[2018-09-09] MEDS ORDERED: POVIDONE-IODINE OINTMENT 10% - 28.4 GM TUBE TP ONE (11:00)
--- NOTE | 2018-09-09 11:21 | OP ---
Operative Note - Note: Operative Date: 09/09/18 Pre-Operative Diagnosis: Left carotid stenosis and TIA Operation: Left carotid endarterectomy Findings: Large plaque at left carotid bifurcation with intraplaque hemorrhage and ulceration Implants: Thin wall Dacron patch Post-Operative Diagnosis: Same as Pre-op Surgeon: Grant Falk [employer] Foreman: Janeen Melton Anesthesiologist/[employer]: Vicki Toribio Anesthesia: General Specimens Removed: Carotid Plaque Estimated Blood Loss (mls): 100
[2018-09-09] MEDS ORDERED: SODIUM CHLORIDE 0.45% 1,000 ML IV SCH (11:45)
[2018-09-09] MEDS ORDERED: ACETAMINOPHEN 325 MG TABLET (FP) PO PRN (11:55)
[2018-09-09] MEDS ORDERED: oxyCODONE HCL 5 MG TABLET PO PRN (11:55)
[2018-09-09] MEDS: metoPROLOL SUCCINATE 25 MG TAB.SR.24H (FP) PO SCH ×2 (14:28→23:07)
--- NOTE | 2018-09-09 15:05 | CONSULT ---
Consultation: REQUESTING PROVIDER: CONSULT REQUEST: We have been asked to medically evaluate this patient for ICU. HISTORY OF PRESENT ILLNESS: Pt is an 83 y/o M with PMH GERD, HLD, HTN, Gout, BPH, Afib, choledocholithiasis , DM, lumbosacral degeneration presented to ED on 09/04/2018 with complaint of urinary frequency, altered gait, weakness, and slurring. Per family, pt has been seeing his primary care doctor who expressed concern for TIA in the past. He was found to have L carotid stenosis, and the decision was made for the patient to have L carotid endarterectomy today. He comes to ED post-op day #0 after the procedure. Pt has no complaints at this time. He has no pain and feels well. Pt requests food. Denies weakness, difficulty speaking, fever, chills. No nausea, vomiting, diarrhea. REVIEW OF SYSTEMS: CONSTITUTIONAL: Absent: fever, chills, diaphoresis, generalized weakness, malaise, loss of appetite, weight change HEENT: Absent: rhinorrhea, nasal congestion, throat pain, throat swelling, difficulty swallowing, mouth swelling, ear pain, eye pain, visual changes CARDIOVASCULAR: Absent: chest pain, syncope, palpitations, irregular heart rate, lightheadedness , peripheral edema RESPIRATORY: Absent: cough, shortness of breath, dyspnea with exertion, orthopnea, wheezing, stridor, hemoptysis GASTROINTESTINAL: Absent: abdominal pain, abdominal distension, nausea, vomiting, diarrhea, constipation, melena, hematochezia GENITOURINARY: Absent: dysuria, frequency, urgency, hesitancy, hematuria, flank pain, genital pain MUSCULOSKELETAL: Absent: myalgia, arthralgia, joint swelling, back pain, neck pain SKIN: Absent: rash, itching, pallor HEMATOLOGIC/IMMUNOLOGIC: Absent: easy bleeding, easy bruising, lymphadenopathy, frequent infections ENDOCRINE: Absent: unexplained weight gain, unexplained weight loss, heat intolerance, cold intolerance NEUROLOGIC: Absent: headache, focal weakness or paresthesias, dizziness, unsteady gait, seizure, mental status changes, bladder or bowel incontinence PSYCHIATRIC: Absent: anxiety, depression, suicidal or homicidal ideation, hallucinations. PHYSICAL EXAMINATION Vital Signs - 24 hr 09/08/18 09/08/18 09/09/18 18:00 22:00 02:00 Temperature 97.4 F L 97.5 F L 97.4 F L Pulse Rate 58 L 53 L 57 L Respiratory 20 20 20 Rate Blood Pressure 131/77 154/68 150/76 O2 Sat by Pulse 97 Oximetry (%) 09/09/18 09/09/18 09/09/18 06:00 11:30 11:45 Temperature 97.9 F 98.5 F 98.4 F Pulse Rate 60 73 74 Respiratory 20 12 14 Rate Blood Pressure 155/74 180/77 H 177/74 H O2 Sat by Pulse 92 L 95 Oximetry (%) 09/09/18 09/09/18 09/09/18 12:00 12:15 12:30 Temperature 97.5 F L 97.6 F 97.8 F Pulse Rate 72 75 73 Respiratory 17 14 14 Rate Blood Pressure 176/69 H 179/64 H 123/63 O2 Sat by Pulse 95 97 94 L Oximetry (%) Gen: AAO x 3, NAD HEENT: NCAT, EOMI, pupils equally reactive, moist membranes Neck: L neck with dressing cdi. No jvd Cardio: rrr, normal s1s2, soft holosystolic 3/6 murmur throughout precordium, loudest at LLSB Pulm: CTA b/l, no rales/ronchi appreciated Abd: nondistended, soft, nontender Ext: no edema, 2+ pulses Neuro: L lower facial droop on smile. Otherwise, CN 2-12 intact. 5/5 motor throughout. Sensation intact. Laboratory Results - last 24 hr 09/08/18 09/08/18 09/08/18 17:18 22:47 22:55 PT with INR INR Sodium Potassium Chloride Carbon Dioxide Anion Gap BUN Creatinine Creat Clearance w eGFR POC Glucometer 187 133 Random Glucose Calcium Blood Type O POSITIVE Antibody Screen Negative Crossmatch See Detail 09/09/18 09/09/18 09/09/18 05:22 06:00 06:00 PT with INR 15.40 H INR 1.30 H Sodium 138 Potassium 3.9 Chloride 103 Carbon Dioxide 29 Anion Gap 6 L BUN 24 H Creatinine 1.7 H Creat Clearance w eGFR 38.50 POC Glucometer 119 Random Glucose 114 H Calcium 8.7 Blood Type Antibody Screen Crossmatch Active Medications Generic Name Dose Route Start Last Admin Trade Name Freq PRN Reason Stop Dose Admin Acetaminophen 325 mg 09/09/18 11:55 Tylenol - PO 09/12/18 11:54 Q4H PRN PAIN 1-5 Allopurinol 100 mg 09/10/18 10:00 Zyloprim - PO DAILY [facility] Atorvastatin Calcium 20 mg 09/09/18 22:00 Lipitor - PO HS [facility] Chlorhexidine Gluconate 1 applic 09/09/18 22:00 Hibiclens For Decolonization - TP HS [facility] Clopidogrel Bisulfate 75 mg 09/10/18 10:00 Plavix - PO DAILY [facility] Diltiazem HCl 240 mg 09/10/18 10:00 Cardizem Cd - PO DAILY [facility] Enoxaparin Sodium 40 mg 09/10/18 10:00 Lovenox - SQ DAILY [facility] Sodium Chloride 1,000 mls @ 60 mls/hr 09/09/18 11:45 09/09/18 14:08 1/2 Normal Saline IV 60 mls/hr ASDIR [facility] Administration Cefazolin Sodium 1 gm in 50 mls @ 100 mls/hr 09/09/18 18:00 Ancef 1 Gm Premixed Ivpb - IVPB 09/10/18 02:29 Q8H-IV [facility] Insulin Aspart 1 vial 09/09/18 16:30 Novolog Vial Sliding Scale - SQ ACHS [facility] Protocol Metoprolol Succinate 25 mg 09/09/18 14:30 09/09/18 14:28 Toprol Xl - PO 25 mg BID [facility] Administration Mupirocin 1 applic 09/09/18 22:00 Bactroban Ointment (For Decolonization) - NS 09/14/18 21:59 BID [facility] Oxycodone HCl 5 mg 09/09/18 11:55 Roxicodone - PO Q4H PRN PAIN 1-5 Polyethylene Glycol 17 gm 09/10/18 10:00 Miralax (For Daily Use) - PO DAILY [facility] ASSESSMENT/PLAN: Pt is an 83 y/o M with PMH AF, mult TIA who presented to ED with stroke symptoms. No acute infarct noted on imaging, but pt was found to have L carotid stenosis. #L carotid stenosis -pod #0 for L carotid endarterectomy -Neuro exam stable from prior. Pt examined with family in the room -perioperative Cefazolin -oxycodone #TIA -recurrent slurring of speech with weakness -MRI Brain neg for acute stroke -MRA Brain - mid basilar stenosis and L ICA stenosis, 80-99% on Carotid Duplex. -CTA Neck with carotid stenosis #Paroxysmal Atrial Fibrillation -holding home Coumadin -on Plavix -pt given Lovenox for surgical intervention #HTN -Metoprolol -Cardizem #HLD -Continue Statin #DM 2 - Continue ISS #? Gout -On home allopurinol #PPx -DVT Px - on Lovenox. #FEN - not on fluid - lytes wnl -clear diet Dispo: We will continue to follow the patient. Thank you for this consultative opportunity. Visit type - Emergency Visit Emergency Visit: No - New Patient This patient is new to me today: Yes Date on this admission: 09/09/18 - Critical Care Critical Care patient: Yes Total Critical Care Time (in minutes): 45 Critical Care Statement: The care of this patient involved high complexity decision making to prevent further life threatening deterioration of the patient 's condition and/or to evaluate & treat vital organ system(s) failure or risk of failure.
--- NOTE | 2018-09-09 15:24 | SURG ---
Surgery Child Development Director Note Child Development Director: Janeen Melton PA-C Date of Service: 09/09/18 Diagnosis: Left carotid stenosis and TIA Procedure: Left carotid endarterectomy I was present for the entirety of the operative procedure. For further detail, please refer to operative report. Visit type - Case Type Case Type: ED Admission - Emergency Emergency Visit: Yes ED Registration Date: 09/07/18 Care time: The patient presented to the Emergency Department on the above date and was hospitalized for further evaluation of their emergent condition. - New patient This patient is new to me today: Yes Date on this admission: 09/09/18
--- NOTE | 2018-09-09 15:54 | PN ---
Progress Note (short form) - Note Progress Note: s: s/p cea today. no chest pain, palps, dyspnea, edema, dizzy Current Medications Generic Name Dose Route Start Last Admin Trade Name Freq PRN Reason Stop Dose Admin Acetaminophen 325 mg 09/09/18 11:55 Tylenol - PO 09/12/18 11:54 Q4H PRN PAIN 1-5 Allopurinol 100 mg 09/10/18 10:00 Zyloprim - PO DAILY [facility] Atorvastatin Calcium 20 mg 09/09/18 22:00 Lipitor - PO HS [facility] Chlorhexidine Gluconate 1 applic 09/09/18 22:00 Hibiclens For Decolonization - TP HS [facility] Clopidogrel Bisulfate 75 mg 09/10/18 10:00 Plavix - PO DAILY [facility] Diltiazem HCl 240 mg 09/10/18 10:00 Cardizem Cd - PO DAILY [facility] Enoxaparin Sodium 40 mg 09/10/18 10:00 Lovenox - SQ DAILY [facility] Sodium Chloride 1,000 mls @ 60 mls/hr 09/09/18 11:45 09/09/18 14:08 1/2 Normal Saline IV 60 mls/hr [facility]IR [facility] Administration Cefazolin Sodium 1 gm in 50 mls @ 100 mls/hr 09/09/18 18:00 Ancef 1 Gm Premixed Ivpb - IVPB 09/10/18 02:29 Q8H-IV [facility] Insulin Aspart 1 vial 09/09/18 16:30 Novolog Vial Sliding Scale - SQ ACHS [facility] Protocol Metoprolol Succinate 25 mg 09/09/18 14:30 09/09/18 14:28 Toprol Xl - PO 25 mg BID [facility] Administration Mupirocin 1 applic 09/09/18 22:00 Bactroban Ointment (For Decolonization) - NS 09/14/18 21:59 BID [facility] Oxycodone HCl 5 mg 09/09/18 11:55 Roxicodone - PO Q4H PRN PAIN 1-5 Polyethylene Glycol 17 gm 09/10/18 10:00 Miralax (For Daily Use) - PO DAILY [facility] - Objective Vital Signs Period Temp Pulse Resp BP Sys/Seaman Pulse Ox Last 24 Hr 97.4 F-98.5 F 53-78 12-20 123-184/63-77 92-97 Constitutional: Yes: No Distress, Calm Eyes: No: Sclera Icterus HENT: No: Nasal Congestion Cardiovascular: Yes: Pulse Irregular, S1, S2, Other (PMI non diplaced). No: Gallop, Murmur Respiratory: Yes: CTA Bilaterally. No: Accessory Muscle Use, Rales, Wheezes Gastrointestinal: Yes: Normal Bowel Sounds, Soft. No: Tenderness Edema: No Integumentary: No: Jaundice Neurological: Yes: Alert, Oriented (x3) Psychiatric: No: Agitated CBC, BMP 09/08/18 06:30 09/09/18 06:00 ECG done on 09/04/2018 at 18:40 showed Afib at 98/min with RBBB MPI 09/22/17 (isabel): no ischemic ST changes. no ischemia. nl EF. Echo 09/2017: nl LV/RV; valves WNL tele: sr Assessment/Plan 83 yo male with multiple CV risk factors including HTN, HPL, DMT2, priot toabcco use and PAD now with symptomatic left ICA stenosis requiring surgical CEA. carotid stenosis, transient slurred speech -neuro eval appreciated: MRI brain (-); MRA brain mid basilar stenosis ; + L ICA stenosis. No focal weakness on exam. -impression is possible symptomatic intracranial atheroscelrosis vs carotid disease - vascular following and had L CEA today -cont AC when possible per vascular (no need for add-on aspirin), statin, bp control Afib -Currently in NSR -On Warfarin at home -when ok to resume AC would bridge with lovenox or UFH gtt until INR is 2.0 or higher (GFR > 30--ok for lovenox). wt here 93 kg, lovenox 90 mg BID HTN -on metoprolol and Cardizem for bp and AF rate control, cont same for now HPL -Continue Atorvastatin DM -Management as per primary team
[2018-09-09] MEDS ORDERED: METOPROLOL TARTRATE 5 MG/5 ML VIAL IVPUSH ONE (16:51)
[2018-09-09] MEDS: CEFAZOLIN 1 GM/D5W 1 GM/50 ML BAG IVPB SCH (17:04)
--- NOTE | 2018-09-09 17:22 | PN ---
Progress Note, Physician Chief Complaint: Mr France is s/p CEA and complains of general numbness everywhere, says he feels like the anesthesia has not worn off. Denies cp, sob, n/v. - Current Medication List Current Medications: Active Medications Acetaminophen (Tylenol -) 325 mg PO Q4H PRN PRN Reason: PAIN 1-5 Stop: 09/12/18 11:54 Allopurinol (Zyloprim -) 100 mg PO DAILY [facility] Atorvastatin Calcium (Lipitor -) 20 mg PO HS [facility] Chlorhexidine Gluconate (Hibiclens For Decolonization -) 1 applic TP HS [facility] Clopidogrel Bisulfate (Plavix -) 75 mg PO DAILY [facility] Diltiazem HCl (Cardizem Cd -) 240 mg PO DAILY [facility] Enoxaparin Sodium (Lovenox -) 40 mg SQ DAILY [facility] Sodium Chloride (1/2 Normal Saline) 1,000 mls @ 60 mls/hr IV ASDIR [facility] Last Admin: 09/09/18 14:08 Dose: 60 mls/hr Cefazolin Sodium (Ancef 1 Gm Premixed Ivpb -) 1 gm in 50 mls @ 100 mls/hr IVPB Q8H-IV [facility] Stop: 09/10/18 02:29 Last Admin: 09/09/18 17:04 Dose: 100 mls/hr Insulin Aspart (Novolog Vial Sliding Scale -) 1 vial SQ ACHS [facility]; Protocol Last Admin: 09/09/18 17:03 Dose: 2 units Metoprolol Succinate (Toprol Xl -) 25 mg PO BID [facility] Last Admin: 09/09/18 14:28 Dose: 25 mg Mupirocin (Bactroban Ointment (For Decolonization) -) 1 applic NS BID [facility] Stop: 09/14/18 21:59 Oxycodone HCl (Roxicodone -) 5 mg PO Q4H PRN PRN Reason: PAIN 1-5 Polyethylene Glycol (Miralax (For Daily Use) -) 17 gm PO DAILY [facility] - Objective Vital Signs: Vital Signs Temperature 36.6 C 09/09/18 14:00 Pulse Rate 78 09/09/18 17:04 Respiratory Rate 14 09/09/18 14:00 Blood Pressure 186/76 H 09/09/18 17:04 O2 Sat by Pulse Oximetry (%) 94 L 09/09/18 15:00 Constitutional: Yes: Well Nourished, No Distress, Calm Cardiovascular: Yes: Regular Rate and Rhythm. No: Gallop, Murmur, Rub Respiratory: Yes: Regular, CTA Bilaterally. No: Rales, Rhonchi, Wheezes Gastrointestinal: Yes: Normal Bowel Sounds, Soft. No: Distention, Tenderness Extremities: Yes: WNL Edema: No Labs: CBC, BMP 09/08/18 06:30 09/09/18 06:00 INR, PTT INR 1.30 (0.83-1.09) H 09/09/18 06:00 Problem List - Problems (1) TIA (transient ischemic attack) Assessment/Plan: -appreciate neurology assistance -s/p CEA -restart AC when cleared by vascular -restart plavix Code(s): G45.9 - TRANSIENT CEREBRAL ISCHEMIC ATTACK, UNSPECIFIED (2) Carotid artery stenosis Assessment/Plan: -s/p CEA today Code(s): I65.29 - OCCLUSION AND STENOSIS OF UNSPECIFIED CAROTID ARTERY Qualifiers: Laterality: left Qualified Code(s): I65.22 - Occlusion and stenosis of left carotid artery (3) Paroxysmal atrial fibrillation Assessment/Plan: -appreciate cardiology assistance -note reviewed -continue toprol xl and cardizem -restart ac when cleared by vascular -will need bridge Code(s): I48.0 - PAROXYSMAL ATRIAL FIBRILLATION (4) Chronic kidney disease Assessment/Plan: -stable Code(s): N18.9 - CHRONIC KIDNEY DISEASE, UNSPECIFIED Qualifiers: Chronic kidney disease stage: stage 3 (moderate) Qualified Code(s): N18.3 - Chronic kidney disease, stage 3 (moderate) (5) Diabetes Assessment/Plan: -FSBS and SSI while in hospital Code(s): E11.9 - TYPE 2 DIABETES MELLITUS WITHOUT COMPLICATIONS Qualifiers: Diabetes mellitus type: type 2 Diabetes mellitus senior living insulin use: without senior living use Diabetes mellitus complication status: with kidney complications Diabetes mellitus complication detail: with chronic kidney disease Chronic kidney disease stage: stage 3 (moderate) Qualified Code(s): E11.22 - Type 2 diabetes mellitus with diabetic chronic kidney disease; N18.3 - Chronic kidney disease, stage 3 (moderate) (6) HLD (hyperlipidemia) Assessment/Plan: -continue statin Code(s): E78.5 - HYPERLIPIDEMIA, UNSPECIFIED Qualifiers: Hyperlipidemia type: pure hypercholesterolemia Qualified Code(s): E78.00 - Pure hypercholesterolemia, unspecified; E78.0 - Pure hypercholesterolemia (7) Hypertension Assessment/Plan: -continue cardizem -continue toprol xl Code(s): I10 - ESSENTIAL (PRIMARY) HYPERTENSION Qualifiers: Hypertension type: essential hypertension Qualified Code(s): I10 - Essential (primary) hypertension
[2018-09-09] MEDS ORDERED: METOPROLOL TARTRATE 5 MG/5 ML VIAL IVPUSH PRN (18:29)
[2018-09-09] MEDS ORDERED: metoPROLOL SUCCINATE 25 MG TAB.SR.24H (FP) PO SCH (22:00)
[2018-09-09] MEDS ORDERED: CHLORHEXIDINE GLUCONATE 4% CLEANSER FOR DECOLONIZATION TP SCH (22:00)
[2018-09-09] MEDS: ATORVASTATIN CA 20 MG TABLET (FP) PO SCH (23:07)
[2018-09-09] MEDS: CHLORHEXIDINE GLUCONATE 4% CLEANSER FOR DECOLONIZATION TP SCH (23:07)
[2018-09-09] MEDS: MUPIROCIN 2% TOPICAL OINTMENT FOR DECOLONIZATION NS SCH (23:09)
[2018-09-10] MEDS: CEFAZOLIN 1 GM/D5W 1 GM/50 ML BAG IVPB SCH (03:14)
[2018-09-10 06:31] LABS: BASO % 0.5 % (0-2.0); HEMOGLOBIN 13.1 GM/dL (11.7-16.9); LYMPH % 6.9 % (8-40); MCHC 34.5 g/dl (32.0-35.9); MEAN CELL VOLUME 89.8 fl (80-96); MEAN PLT VOLUME 9.1 fl (7.5-11.1); MONO % 4.1 % (3.8-10.2); NEUT % 88.5 % (42.8-82.8); PLATELET COUNT 133 K/MM3 (134-434); RBC 4.24 M/mm3 (4.00-5.60); WHITE BLOOD COUNT 12.9 K/mm3 (4.0-10.0)
[2018-09-10 06:56] LABS: ANION GAP 8 MMOL/L (8-16); BLOOD UREA NITROGEN 26 mg/dL (7-18); CALCIUM 8.6 mg/dL (8.5-10.1); CHLORIDE 102 mmol/L (98-107); CO2 28 mmol/L (21-32); CREATININE 1.8 mg/dL (0.55-1.3); GLUCOSE,RANDOM 217 mg/dL (74-106); MAGNESIUM 1.6 mg/dL (1.8-2.4); PHOSPHOROUS 2.9 mg/dL (2.5-4.9); POTASSIUM 4.4 mmol/L (3.5-5.1); SODIUM 138 mmol/L (136-145)
[2018-09-10] MEDS: INSULIN SLIDING SCALE (NOVOLOG) 1 VIAL SQ SCH ×4 (06:58→21:24)
--- NOTE | 2018-09-10 08:02 | PN ---
Progress Note (short form) - Note Progress Note: POD# 1 Left carotid endarterectomy patient seen and examined at bedside with no complaints. He is tolerating his diet and voiding without limitation. He denies any CP, SOB, Blurred vision, n/v/d, fever or chills. Vital Signs Temp 98.4 F 09/10/18 06:00 Pulse 72 09/10/18 07:00 Resp 17 09/10/18 07:00 BP 162/88 09/10/18 07:00 Pulse Ox 100 09/09/18 21:00 Intake & Output 09/09/18 09/09/18 09/10/18 11:59 23:59 11:59 Intake Total 1520 1090 498.8 Output Total 550 500 575 Balance 970 590 -76.2 Intake: IV 1520 480 448.8 1/2 Normal Saline 1,000 420 448.8 ml @ 60 mls/hr IV ASDIR [facility] Rx#:[id number] 1/2 Normal Saline 1,000 480 ml @ 60 mls/hr IV ASDIR [facility] Rx#:[id number] IVPB 250 50 Oral 360 Output: Urine 450 500 575 Void 450 500 575 Estimated Blood Loss 100 Other: Voiding Method Urinal # Unmeasured Voids Void 1 Bowel Movement No No CBC, BMP 09/10/18 05:30 09/10/18 05:30 PE A&Ox3, NAD Unlabored resp on RA neck: left surgical site incision C/D/I with conor in situ and surrounding tissue intact. minimal focal edema with no tracking erythema and no active d/c. No pulsatile mass. Trachea midline with no evidence of edema crossing the midline. eyebrows raise equally, slight left sided facial droop with smiling on baseline , tongue protrudes at midline and able to puff out cheeks b/l LE compartments soft, supple and non-tender to palpation with +2 DP pulses. Problem List - Problems (1) Carotid artery stenosis Assessment/Plan: POD #1 Left doing well 1) OOb as tolerated and up to chair for meals 2) Continue DVT prophylaxis as with SCDS, early ambulation, Lovenox and plavix 3) Keep dressing clean and dry 4) Encourage daily IS Code(s): I65.29 - OCCLUSION AND STENOSIS OF UNSPECIFIED CAROTID ARTERY Qualifiers: Laterality: left Qualified Code(s): I65.22 - Occlusion and stenosis of left carotid artery
[2018-09-10] MEDS: metoPROLOL SUCCINATE 25 MG TAB.SR.24H (FP) PO SCH ×3 (08:18→21:23)
--- NOTE | 2018-09-10 08:29 | PN ---
Progress Note (short form) - Note Progress Note: POD 1 No C/o VSS Neck wound clean and dry Neuro intact Stable Increase Lovenox to 90 mg BID Consider changing to NOAC OK for transfer to floor.
--- NOTE | 2018-09-10 08:35 | PN ---
Progress Note (short form) - Note Progress Note: Dr. Pink to document today. Doing well after left carotid endarterectomy; BP elevated. Await decision of Cardiology Re: switch from Coumadin to Eliquis. I think arrhythmia was the reason for the anticoagulation so he should qualify. Creatinine 1.8
--- NOTE | 2018-09-10 08:40 | PN ---
Physical Exam: SUBJECTIVE: Patient seen and examined Patient was seen and examined by me. Patient had no symptomatic complaints this AM. Denies fever, chest pain, SOB, abdominal pain, lightheadedness, and FND. Denies nausea and vomiting. States he feels well enough to go home. Will have physical therapy. OBJECTIVE: Vital Signs Period Temp Pulse Resp BP Sys/Seaman Pulse Ox Last 24 Hr 97.5 F-98.5 F 72-78 12-17 123-186/63-97 92-100 GENERAL: The patient is awake, alert, and fully oriented, in no acute distress. HEAD: Normal with no signs of trauma. EYES: PERRL, extraocular movements intact, sclera anicteric, conjunctiva clear. No ptosis. ENT: Ears normal, nares patent, oropharynx clear without exudates, moist mucous membranes. NECK: Trachea midline, full range of motion, supple. LUNGS: Breath sounds equal, decreased breath sounds bilaterally at bases no wheezes, no crackles, no accessory muscle use. HEART: Regular rate and rhythm, S1, S2 without murmur, rub or gallop. ABDOMEN: Soft, nontender, nondistended, normoactive bowel sounds, no guarding, no rebound, no hepatosplenomegaly, no masses. EXTREMITIES: 2+ pulses, warm, well-perfused, no edema. NEUROLOGICAL: Cranial nerves II through XII grossly intact. Normal speech, gait observed and within normal limits. No sensation deficits. PSYCH: Normal mood, normal affect. SKIN: Warm, dry, normal turgor, no rashes or lesions noted Laboratory Results - last 24 hr 09/08/18 09/09/18 09/09/18 22:55 16:47 23:00 WBC RBC Hgb Hct MCV MCH MCHC RDW Plt Count MPV Absolute Neuts (auto) Neutrophils % Lymphocytes % Monocytes % Eosinophils % Basophils % Nucleated RBC % Sodium Potassium Chloride Carbon Dioxide Anion Gap BUN Creatinine Creat Clearance w eGFR POC Glucometer 200 300 Random Glucose Calcium Phosphorus Magnesium Blood Type O POSITIVE Antibody Screen Negative Crossmatch See Detail 09/10/18 09/10/18 05:30 05:30 WBC 12.9 H RBC 4.24 Hgb 13.1 Hct 38.0 MCV 89.8 MCH 31.0 MCHC 34.5 RDW 16.0 H Plt Count 133 L MPV 9.1 Absolute Neuts (auto) 11.4 H Neutrophils % 88.5 H D Lymphocytes % 6.9 L D Monocytes % 4.1 Eosinophils % 0.0 D Basophils % 0.5 Nucleated RBC % 0 Sodium 138 Potassium 4.4 Chloride 102 Carbon Dioxide 28 Anion Gap 8 BUN 26 H Creatinine 1.8 H Creat Clearance w eGFR 36.04 POC Glucometer Random Glucose 217 H Calcium 8.6 Phosphorus 2.9 Magnesium 1.6 L Blood Type Antibody Screen Crossmatch Active Medications Generic Name Dose Route Start Last Admin Trade Name Freq PRN Reason Stop Dose Admin Acetaminophen 325 mg 09/09/18 11:55 Tylenol - PO 09/12/18 11:54 Q4H PRN PAIN 1-5 Allopurinol 100 mg 09/10/18 10:00 Zyloprim - PO DAILY [facility] Atorvastatin Calcium 20 mg 09/09/18 22:00 09/09/18 23:07 Lipitor - PO 20 mg HS [facility] Administration Chlorhexidine Gluconate 1 applic 09/09/18 22:00 09/09/18 23:07 Hibiclens For Decolonization - TP 1 applic HS [facility] Administration Clopidogrel Bisulfate 75 mg 09/10/18 10:00 Plavix - PO DAILY [facility] Diltiazem HCl 240 mg 09/10/18 10:00 09/10/18 08:18 Cardizem Cd - PO 240 mg DAILY [facility] Administration Enoxaparin Sodium 90 mg 09/10/18 10:00 Lovenox - SQ BID [facility] Insulin Aspart 1 vial 09/09/18 16:30 09/10/18 06:58 Novolog Vial Sliding Scale - SQ 2 units ACHS [facility] Administration Protocol Metoprolol Succinate 25 mg 09/09/18 14:30 09/10/18 08:18 Toprol Xl - PO 25 mg BID [facility] Administration Metoprolol Tartrate 5 mg 09/09/18 18:29 Lopressor Injection - IVPUSH Q4H PRN HYPERTENSION Mupirocin 1 applic 09/09/18 22:00 09/09/18 23:09 Bactroban Ointment (For Decolonization) - NS 09/14/18 21:59 1 applic BID [facility] Administration Oxycodone HCl 5 mg 09/09/18 11:55 Roxicodone - PO Q4H PRN PAIN 1-5 Polyethylene Glycol 17 gm 09/10/18 10:00 Miralax (For Daily Use) - PO DAILY [facility] ASSESSMENT/PLAN: 83 y/o M with PMH AF, mult TIA who presented to ED with stroke symptoms. No acute infarct noted on imaging, but pt was found to have L carotid stenosis. Left carotid stenosis -POD#1 s/p left carotid endarterectomy -Continues to have a within normal limits neurological exam -Alert and oriented x3 TIA: -On initial presentation, had slurring of speech with weakness -MRI brain was negative for acute cerebral vascular event -MRA brain shows mid basilar stenosis -CTA neck shows carotid stenosis with 75-80% stenosis -Continue to monitor Paroxysmal atrial fibrillation -coumadin home dose held -on plavix -lovenox to be DC'd, will be placed on eliquis per cardiology HTN -On metoprolol -On cardizem HLD: -On statin therapy Diabetes, Type 2 -Continue ISS Prophylaxis: DVT prophylaxis with eliquis FEN: On regular diet Able to tolerate PO Magnesium 1.6; given 2 grams of magnesium sulfate Replete electrolytes when required Dispo: To be transferred to the floors Visit type - Emergency Visit Emergency Visit: Yes ED Registration Date: 09/07/18 Care time: The patient presented to the Emergency Department on the above date and was hospitalized for further evaluation of their emergent condition. - New Patient This patient is new to me today: Yes Date on this admission: 09/10/18 - Critical Care Critical Care patient: Yes Total Critical Care Time (in minutes): 36 Critical Care Statement: The care of this patient involved high complexity decision making to prevent further life threatening deterioration of the patient 's condition and/or to evaluate & treat vital organ system(s) failure or risk of failure. - Discharge Referral Referred to [facility] No
--- NOTE | 2018-09-10 09:00 | OP ---
DATE OF OPERATION: 09/10/2018 SURGEON: Grant Falk MD SPECIMEN ACCESSIONER: MANJU Saunders PROCEDURE: Left carotid endarterectomy. PREOPERATIVE DIAGNOSIS: Left carotid stenosis with transient ischemic attack. POSTOPERATIVE DIAGNOSIS: Left carotid stenosis with transient ischemic attack. ANESTHESIA: General. ANESTHESIOLOGIST: Vicki Toribio MD OPERATIVE FINDINGS: There was a large plaque at the left carotid bifurcation extending approximately 2 cm into the internal carotid with severe stenosis. Plaque had evidence of recent thrombus and ulceration. OPERATIVE PROCEDURE: Following routine patient identification with side and site verification, general anesthesia was established. The left neck and chest were prepped with ChloraPrep. Time-out was performed. The incision was made along the anterior border of the left sternocleidomastoid and carried through subcutaneous tissue and platysmal area with cautery. The anterior border of the sternocleidomastoid was freed with cautery, and the muscles were retracted laterally. The internal jugular vein was exposed and dissected along its anterior border. Side branches were ligated with silk ties and divided. The vein was retracted laterally. The common carotid artery was then mobilized at the base of the incision and secured with vessel loops. Distal dissection was carried out to the carotid bifurcation. The external carotid was mobilized and secured with a vessel loop. The internal carotid was then exposed distally. The hypoglossal nerve was identified and was carefully protected. Crossing vessels were ligated with silk ties and divided. The internal carotid was then exposed more distally to a point free of atherosclerotic disease. It was encircled with a vessel loop. The patient was systemically heparinized. The common internal and external carotid arteries were then occluded with clamps and vessel loops. The arteriotomy was made in the common extending to the internal to a point distal to the atherosclerotic plaque. Back-bleeding from the distal internal carotid artery was pulsatile. Attempt was made to place a shunt, but due to the size of the vessel, it was difficult to keep it in placed, and with the good back-bleeding, it was decided that a shunt was not needed. Endarterectomy was then performed with removal of plaque from the common internal and external carotid arteries. Loose media fibers were removed. The distal intima was tacked with a suture of 7-0 Prolene. The arteriotomy was then closed with a thin collagen-coated Dacron patch, which was sutured to the arterial watkins with running sutures of 6-0 Prolene. Prior to completion of the suture line, the arteries were allowed to back-bleed and flush, and the lumen was filled with heparin solution. The suture line was completed and flow was restored first into the external and then the internal carotid artery. Bleeding from the suture line was controlled with Surgicel. Evaluation with a Doppler revealed good flow in all branches with no evidence of technical defect. When hemostasis was adequate, the wound was closed with interrupted suture of 3-0 Vicryl on the platysmal layer and skin conor. Sterile dressings were applied. Then, the patient was taken to the recovery room in stable condition. GRANT FALK M.D. [id number]
[2018-09-10] MEDS: POLYETHYLENE GLYCOL 3350 119 GM BTL PO SCH (09:21)
[2018-09-10] MEDS: CLOPIDOGREL BISULFATE 75 MG TABLET (FP) PO SCH (09:23)
[2018-09-10] MEDS: ALLOPURINOL 100 MG TABLET (FP) PO SCH (09:24)
[2018-09-10] MEDS ORDERED: MAGNESIUM SULF 50% (8.12 MEQ/2 ML-1 GM VIAL) IVPB ONE (09:30)
[2018-09-10] MEDS ORDERED: ENOXAPARIN NA (PORCINE) 40 MG/0.4 ML DISP.SYRIN SQ SCH (10:00)
[2018-09-10] MEDS ORDERED: ENOXAPARIN NA (PORCINE) 100 MG/1 ML DISP.SYRIN SQ SCH (10:00)
[2018-09-10] MEDS: MUPIROCIN 2% TOPICAL OINTMENT FOR DECOLONIZATION NS SCH ×2 (11:00→21:24)
--- NOTE | 2018-09-10 11:55 | PN ---
Progress Note (short form) - Note Progress Note: s:no chest pain, palps, dyspnea, edema, dizzy Current Medications Generic Name Dose Route Start Last Admin Trade Name Freq PRN Reason Stop Dose Admin Acetaminophen 325 mg 09/09/18 11:55 Tylenol - PO 09/12/18 11:54 Q4H PRN PAIN 1-5 Allopurinol 100 mg 09/10/18 10:00 09/10/18 09:24 Zyloprim - PO 100 mg DAILY RAFAT Administration Atorvastatin Calcium 20 mg 09/09/18 22:00 09/09/18 23:07 Lipitor - PO 20 mg HS RAFAT Administration Chlorhexidine Gluconate 1 applic 09/09/18 22:00 09/09/18 23:07 Hibiclens For Decolonization - TP 1 applic HS ARFAT Administration Clopidogrel Bisulfate 75 mg 09/10/18 10:00 09/10/18 09:23 Plavix - PO 75 mg DAILY RAFAT Administration Diltiazem HCl 240 mg 09/10/18 10:00 09/10/18 09:19 Cardizem Cd - PO Not Given DAILY RAFAT Enoxaparin Sodium 90 mg 09/10/18 10:00 09/10/18 10:16 Lovenox - SQ 90 mg BID RAFAT Administration Insulin Aspart 1 vial 09/09/18 16:30 09/10/18 06:58 Novolog Vial Sliding Scale - SQ 2 units ACHS RAFAT Administration Protocol Metoprolol Succinate 25 mg 09/09/18 14:30 09/10/18 09:23 Toprol Xl - PO Not Given BID RAFAT Metoprolol Tartrate 5 mg 09/09/18 18:29 Lopressor Injection - IVPUSH Q4H PRN HYPERTENSION Mupirocin 1 applic 09/09/18 22:00 09/09/18 23:09 Bactroban Ointment (For Decolonization) - NS 09/14/18 21:59 1 applic BID [facility]AT Administration Oxycodone HCl 5 mg 09/09/18 11:55 Roxicodone - PO Q4H PRN PAIN 1-5 Polyethylene Glycol 17 gm 09/10/18 10:00 09/10/18 09:21 Miralax (For Daily Use) - PO 17 grams DAILY RAFAT Administration - Objective Vital Signs Period Temp Pulse Resp BP Sys/Seaman Pulse Ox Last 24 Hr 97.5 F-98.4 F 61-80 13-20 117-186/63-97 94-100 2 Constitutional: Yes: No Distress, Calm Eyes: No: Sclera Icterus HENT: No: Nasal Congestion Cardiovascular: Yes: Pulse Irregular, S1, S2, Other (PMI non diplaced). No: Gallop, Murmur Respiratory: Yes: CTA Bilaterally. No: Accessory Muscle Use, Rales, Wheezes Gastrointestinal: Yes: Normal Bowel Sounds, Soft. No: Tenderness Edema: No Integumentary: No: Jaundice Neurological: Yes: Alert, Oriented (x3) Psychiatric: No: Agitated CBC, BMP 09/10/18 05:30 09/10/18 05:30 ECG done on 09/04/2018 at 18:40 showed Afib at 98/min with RBBB MPI 09/22/17 (isabel): no ischemic ST changes. no ischemia. nl EF. Echo 09/2017: nl LV/RV; valves WNL tele: sr Assessment/Plan 83 yo male with multiple CV risk factors including HTN, HPL, DMT2, priot toabcco use and PAD now with symptomatic left ICA stenosis requiring surgical CEA. carotid stenosis, transient slurred speech -neuro eval appreciated: MRI brain (-); MRA brain mid basilar stenosis ; + L ICA stenosis. No focal weakness on exam. -impression is possible symptomatic intracranial atheroscelrosis vs carotid disease - vascular following and had L CEA 09/09/18 -ok to resume ac per vascular. will dc lovenox and change to eliquis 2.5 bid ( lower dose based on age and cr). No need for add-on aspirin since on ac, cont statin, bp control Afib -Currently in NSR -was on Warfarin at home -ok to resume ac per vascular. will dc lovenox and change to eliquis 2.5 bid ( lower dose based on age and cr) instead of coumadin. HTN -on metoprolol and Cardizem for bp and AF rate control, cont same for now HPL -Continue Atorvastatin DM -Management as per primary team
--- NOTE | 2018-09-10 12:17 | PN ---
Progress Note (short form) - Note Progress Note: Anesthesia post op Pt seen and examined S:Alert and awake O: Vital Signs Temperature 97.7 F 09/10/18 11:00 Pulse Rate 61 09/10/18 11:00 Respiratory Rate 20 09/10/18 11:00 Blood Pressure 126/76 09/10/18 11:00 O2 Sat by Pulse Oximetry (%) 100 09/10/18 09:00 CBC, BMP 09/10/18 05:30 09/10/18 05:30 A/P; Current Active Problems Slurred speech (Acute) TIA (transient ischemic attack) (Acute) Urinary frequency (Acute) s/p CEA left Doing well post op Continue current care Giles Vivas
--- NOTE | 2018-09-10 13:10 | PN ---
Teaching Attending Note Name of Resident: Damian Lopez ATTENDING PHYSICIAN STATEMENT I saw and evaluated the patient. I reviewed the resident's note and discussed the case with the resident. I agree with the resident's findings and plan as documented. SUBJECTIVE: Pt seen and examined in the ICU. No current complaints. Denies shortness of breath, dysphagia. Has been ambulating. OBJECTIVE: Vital Signs Period Temp Pulse Resp BP Sys/Seaman Pulse Ox Last 24 Hr 97.7 F-98.4 F 61-80 13-20 117-186/66-97 94-100 Intake & Output 09/07/18 09/08/18 09/09/18 09/10/18 23:59 23:59 23:59 23:59 Intake Total 700 1020 2610 498.8 Output Total 328 828 2525 575 Balance 878 962 7308 -76.2 Gen: NAD at rest Heart: RRR Lung: decreased breath sounds at the bases Abd: soft, nontender Ext: no edema CBC, BMP 09/10/18 05:30 09/10/18 05:30 Active Medications Acetaminophen (Tylenol -) 325 mg PO Q4H PRN PRN Reason: PAIN 1-5 Stop: 09/12/18 11:54 Allopurinol (Zyloprim -) 100 mg PO DAILY [facility] Last Admin: 09/10/18 09:24 Dose: 100 mg Apixaban (Eliquis -) 2.5 mg PO BID [facility] Atorvastatin Calcium (Lipitor -) 20 mg PO HS [facility] Last Admin: 09/09/18 23:07 Dose: 20 mg Chlorhexidine Gluconate (Hibiclens For Decolonization -) 1 applic TP [facility] Last Admin: 09/09/18 23:07 Dose: 1 applic Clopidogrel Bisulfate (Plavix -) 75 mg PO DAILY [facility] Last Admin: 09/10/18 09:23 Dose: 75 mg Diltiazem HCl (Cardizem Cd -) 240 mg PO DAILY [facility] Last Admin: 09/10/18 09:19 Dose: Not Given Insulin Aspart (Novolog Vial Sliding Scale -) 1 vial SQ [facility]; Protocol Last Admin: 09/10/18 12:39 Dose: 4 units Metoprolol Succinate (Toprol Xl -) 25 mg PO BID [facility] Last Admin: 09/10/18 09:23 Dose: Not Given Metoprolol Tartrate (Lopressor Injection -) 5 mg IVPUSH Q4H PRN PRN Reason: HYPERTENSION Mupirocin (Bactroban Ointment (For Decolonization) -) 1 applic NS BID [facility] Stop: 09/14/18 21:59 Last Admin: 09/10/18 11:00 Dose: 1 applic Oxycodone HCl (Roxicodone -) 5 mg PO Q4H PRN PRN Reason: PAIN 1-5 Polyethylene Glycol (Miralax (For Daily Use) -) 17 gm PO DAILY [facility] Last Admin: 09/10/18 09:21 Dose: 17 grams ASSESSMENT AND PLAN: Symptomatic L ICA Stenosis s/p L CEA Atrial Fibrillation HTN DM Hyperlipidemia PAD - neuro checks - plavix, statin - continue anticoagulation - rate controlled - PO as tolerated - rehab/PT - can monitor on floor
--- NOTE | 2018-09-10 14:30 | PN ---
Progress Note, Physician Chief Complaint: Mr France say he is feeling fine. Denies numbness, tingling, cp, sob, n/v. Says he wants to go home tomorrow. - Current Medication List Current Medications: Active Medications Acetaminophen (Tylenol -) 325 mg PO Q4H PRN PRN Reason: PAIN 1-5 Stop: 09/12/18 11:54 Allopurinol (Zyloprim -) 100 mg PO DAILY [facility] Last Admin: 09/10/18 09:24 Dose: 100 mg Apixaban (Eliquis -) 2.5 mg PO BID [facility] Atorvastatin Calcium (Lipitor -) 20 mg PO HS [facility] Last Admin: 09/09/18 23:07 Dose: 20 mg Chlorhexidine Gluconate (Hibiclens For Decolonization -) 1 applic TP HS [facility] Last Admin: 09/09/18 23:07 Dose: 1 applic Clopidogrel Bisulfate (Plavix -) 75 mg PO DAILY [facility] Last Admin: 09/10/18 09:23 Dose: 75 mg Diltiazem HCl (Cardizem Cd -) 240 mg PO DAILY [facility] Last Admin: 09/10/18 09:19 Dose: Not Given Insulin Aspart (Novolog Vial Sliding Scale -) 1 vial SQ [facility]; Protocol Last Admin: 09/10/18 12:39 Dose: 4 units Metoprolol Succinate (Toprol Xl -) 25 mg PO BID [facility] Last Admin: 09/10/18 09:23 Dose: Not Given Metoprolol Tartrate (Lopressor Injection -) 5 mg IVPUSH Q4H PRN PRN Reason: HYPERTENSION Mupirocin (Bactroban Ointment (For Decolonization) -) 1 applic NS BID [facility] Stop: 09/14/18 21:59 Last Admin: 09/10/18 11:00 Dose: 1 applic Oxycodone HCl (Roxicodone -) 5 mg PO Q4H PRN PRN Reason: PAIN 1-5 Polyethylene Glycol (Miralax (For Daily Use) -) 17 gm PO DAILY [facility] Last Admin: 09/10/18 09:21 Dose: 17 grams - Objective Vital Signs: Vital Signs Temperature 36.5 C 09/10/18 11:00 Pulse Rate 61 09/10/18 11:00 Respiratory Rate 20 09/10/18 11:00 Blood Pressure 126/76 09/10/18 11:00 O2 Sat by Pulse Oximetry (%) 100 09/10/18 09:00 Constitutional: Yes: Well Nourished, No Distress, Calm Cardiovascular: Yes: Regular Rate and Rhythm. No: Gallop, Murmur, Rub Respiratory: Yes: Regular, CTA Bilaterally. No: Rales, Rhonchi, Wheezes Gastrointestinal: Yes: Normal Bowel Sounds, Soft. No: Distention, Tenderness Extremities: Yes: WNL Edema: No Labs: CBC, BMP 09/10/18 05:30 09/10/18 05:30 INR, PTT INR 1.30 (0.83-1.09) H 09/09/18 06:00 Problem List - Problems (1) TIA (transient ischemic attack) Code(s): G45.9 - TRANSIENT CEREBRAL ISCHEMIC ATTACK, UNSPECIFIED (2) Carotid artery stenosis Code(s): I65.29 - OCCLUSION AND STENOSIS OF UNSPECIFIED CAROTID ARTERY Qualifiers: Laterality: left Qualified Code(s): I65.22 - Occlusion and stenosis of left carotid artery (3) Paroxysmal atrial fibrillation Code(s): I48.0 - PAROXYSMAL ATRIAL FIBRILLATION (4) Chronic kidney disease Code(s): N18.9 - CHRONIC KIDNEY DISEASE, UNSPECIFIED Qualifiers: Chronic kidney disease stage: stage 3 (moderate) Qualified Code(s): N18.3 - Chronic kidney disease, stage 3 (moderate) (5) Diabetes Code(s): E11.9 - TYPE 2 DIABETES MELLITUS WITHOUT COMPLICATIONS Qualifiers: Diabetes mellitus type: type 2 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: without laborer marine terminal use Diabetes mellitus complication status: with kidney complications Diabetes mellitus complication detail: with chronic kidney disease Chronic kidney disease stage: stage 3 (moderate) Qualified Code(s): E11.22 - Type 2 diabetes mellitus with diabetic chronic kidney disease; N18.3 - Chronic kidney disease, stage 3 (moderate) (6) HLD (hyperlipidemia) Code(s): E78.5 - HYPERLIPIDEMIA, UNSPECIFIED Qualifiers: Hyperlipidemia type: pure hypercholesterolemia Qualified Code(s): E78.00 - Pure hypercholesterolemia, unspecified; E78.0 - Pure hypercholesterolemia (7) Hypertension Code(s): I10 - ESSENTIAL (PRIMARY) HYPERTENSION Qualifiers: Hypertension type: essential hypertension Qualified Code(s): I10 - Essential (primary) hypertension Assessment/Plan (1) TIA (transient ischemic attack) Assessment/Plan: -appreciate neurology assistance -s/p CEA -started on eliquis -started on plavix by Dr Falk, will continue unless he feels eliquis is enough Code(s): G45.9 - TRANSIENT CEREBRAL ISCHEMIC ATTACK, UNSPECIFIED (2) Carotid artery stenosis Assessment/Plan: -s/p CEA today Code(s): I65.29 - OCCLUSION AND STENOSIS OF UNSPECIFIED CAROTID ARTERY Qualifiers: Laterality: left Qualified Code(s): I65.22 - Occlusion and stenosis of left carotid artery (3) Paroxysmal atrial fibrillation Assessment/Plan: -appreciate cardiology assistance -note reviewed -continue toprol xl and cardizem -placed on eliquis Code(s): I48.0 - PAROXYSMAL ATRIAL FIBRILLATION (4) Chronic kidney disease Assessment/Plan: -stable Code(s): N18.9 - CHRONIC KIDNEY DISEASE, UNSPECIFIED Qualifiers: Chronic kidney disease stage: stage 3 (moderate) Qualified Code(s): N18.3 - Chronic kidney disease, stage 3 (moderate) (5) Diabetes Assessment/Plan: -FSBS and SSI while in hospital Code(s): E11.9 - TYPE 2 DIABETES MELLITUS WITHOUT COMPLICATIONS Qualifiers: Diabetes mellitus type: type 2 Diabetes mellitus senior living insulin use: without senior living use Diabetes mellitus complication status: with kidney complications Diabetes mellitus complication detail: with chronic kidney disease Chronic kidney disease stage: stage 3 (moderate) Qualified Code(s): E11.22 - Type 2 diabetes mellitus with diabetic chronic kidney disease; N18.3 - Chronic kidney disease, stage 3 (moderate) (6) HLD (hyperlipidemia) Assessment/Plan: -continue statin Code(s): E78.5 - HYPERLIPIDEMIA, UNSPECIFIED Qualifiers: Hyperlipidemia type: pure hypercholesterolemia Qualified Code(s): E78.00 - Pure hypercholesterolemia, unspecified; E78.0 - Pure hypercholesterolemia (7) Hypertension Assessment/Plan: -continue cardizem -continue toprol xl Code(s): I10 - ESSENTIAL (PRIMARY) HYPERTENSION Qualifiers: Hypertension type: essential hypertension Qualified Code(s): I10 - Essential (primary) hypertension
[2018-09-10] MEDS ORDERED: PT OWN MED DRAWER 7, Y5N ONE (15:40)
[2018-09-10] MEDS ORDERED: INSULIN (NOVOLOG) ASPART 100 UNITS/ML 10ML VIAL ONE (21:19)
[2018-09-10] MEDS: APIXABAN 2.5 MG TABLET PO SCH (21:23)
[2018-09-10] MEDS: ATORVASTATIN CA 20 MG TABLET (FP) PO SCH (21:23)
[2018-09-10] MEDS: CHLORHEXIDINE GLUCONATE 4% CLEANSER FOR DECOLONIZATION TP SCH (21:24)
[2018-09-11] MEDS: INSULIN SLIDING SCALE (NOVOLOG) 1 VIAL SQ SCH (06:47)
[2018-09-11 07:09] LABS: BASO % 0.3 % (0-2.0); EOS % 0.9 % (0-4.5); HEMATOCRIT 37.2 % (35.4-49); HEMOGLOBIN 13.1 GM/dL (11.7-16.9); LYMPH % 12.2 % (8-40); MCHC 35.2 g/dl (32.0-35.9); MEAN PLT VOLUME 9.4 fl (7.5-11.1); MONO % 6.4 % (3.8-10.2); NEUT % 80.2 % (42.8-82.8); PLATELET COUNT 140 K/MM3 (134-434); RBC 4.09 M/mm3 (4.00-5.60); RDW 16.1 % (11.9-15.9); WHITE BLOOD COUNT 13.8 K/mm3 (4.0-10.0)
[2018-09-11 08:10] LABS: ANION GAP 9 MMOL/L (8-16); BLOOD UREA NITROGEN 32 mg/dL (7-18); CALCIUM 8.5 mg/dL (8.5-10.1); CHLORIDE 103 mmol/L (98-107); CO2 27 mmol/L (21-32); CREATININE 1.7 mg/dL (0.55-1.3); GLUCOSE,RANDOM 147 mg/dL (74-106); MAGNESIUM 2.5 mg/dL (1.8-2.4); PHOSPHOROUS 3.1 mg/dL (2.5-4.9); POTASSIUM 4.4 mmol/L (3.5-5.1); SODIUM 139 mmol/L (136-145)
--- NOTE | 2018-09-11 08:25 | PN ---
Progress Note (short form) - Note Progress Note: VSS Neck wound clean and dry Neuro exam unchanged OK for discharge I will see in office Friday
[2018-09-11] MEDS ORDERED: PT OWN MED DRAWER 7, Y5N ONE (09:09)
[2018-09-11] MEDS: APIXABAN 2.5 MG TABLET PO SCH (09:15)
[2018-09-11] MEDS: CLOPIDOGREL BISULFATE 75 MG TABLET (FP) PO SCH (09:15)
[2018-09-11] MEDS: metoPROLOL SUCCINATE 25 MG TAB.SR.24H (FP) PO SCH (09:15)
[2018-09-11] MEDS: ALLOPURINOL 100 MG TABLET (FP) PO SCH (09:15)
[2018-09-11] MEDS: POLYETHYLENE GLYCOL 3350 119 GM BTL PO SCH (09:18)
[2018-09-11] MEDS: MUPIROCIN 2% TOPICAL OINTMENT FOR DECOLONIZATION NS SCH (09:18)
[2018-09-11 11:34] VITALS: BP 144/77; PULSE 69; TEMP 98.6
--- NOTE | 2018-09-11 15:42 | PATH ---
Surgical Pathology Report Patient Name: HEIDI ZACARIAS Med. Rec. #: [id number] /Age/Gender: 1935 (Age: 83) / M Account: [id number] Location: [facility] MED/SURG Taken: 09/09/2018 Received: 09/09/2018 Reported: 09/11/2018 Physicians: Grant Falk M.D. Specimen(s) Received LEFT CAROTID PLAQUE Clinical History Left carotid stenosis, TIAs Final Diagnosis PLAQUE, LEFT CAROTID, ENDARTERECTOMY: CALCIFIED ATHEROMATOUS PLAQUE. Electronically Signed Daniela Alvarez M.D. Gross Description Received in formalin labeled "plaque," is a 3.8 x 1.5 x 0.8 cm malik-yellow portion of plaque material. Aerospace Project Manager sections are submitted in one cassette. /09/10/2018 saudi09/10/2018
--- NOTE | 2018-09-12 09:53 | EKG ---
Test Reason : Blood Pressure : / mmHG Vent. Rate : 107 BPM Atrial Rate : 227 BPM P-R Int : 000 ms QRS Dur : 124 ms QT Int : 384 ms P-R-T Axes : 000 060 -07 degrees QTc Int : 512 ms ATRIAL FIBRILLATION WITH RAPID VENTRICULAR RESPONSE RIGHT BUNDLE BRANCH BLOCK SEPTAL INFARCT , AGE UNDETERMINED ABNORMAL ECG WHEN COMPARED WITH ECG OF 04-SEP-2018 18:40, SEPTAL INFARCT IS NOW PRESENT Confirmed by CHRISTINE ZAMORANO, ADITYA ([id number]) on 09/12/2018 9:52:50 AM Referred By: Confirmed By:ADITYA KING MD
== END 2018-09-11 11:13 | disposition home or self-care (01) | DRG 38 ==
LOC: JER 15:42 → JERFT 15:42 → JERBED 21:27 → J4S 09-05 00:57 → OBSVTOIN 09-07 12:12 → JICU 09-09 11:33 → J7W 09-10 15:52
PROVIDERS: ADMIT Internal Medicine; ATTEND Internal Medicine
PROC: 03CL0Z6 (ICD-10-PCS; principal; 2018-09-10)
PROC: 03CJ0Z6 (ICD-10-PCS; 2018-09-10)
PROC: 03CN0Z6 (ICD-10-PCS; 2018-09-10)
PROC: 03U Upper Arteries, Supplement (ICD-10-PCS; 2018-09-10)
PROC: 3E06317 Introduction of Other Thrombolytic into Central Artery, Percutaneous Approach (ICD-10-PCS; 2018-09-10)
DX: I65.22 Occlusion and stenosis of left carotid artery (principal); N17.9 Acute kidney failure, unspecified; R47.81 Slurred speech; I12.9 Hypertensive chronic kidney disease with stage 1 through stage 4 chronic kidney disease, or unspecified chronic kidney disease; E11.22 Type 2 diabetes mellitus with diabetic chronic kidney disease; N18.3 Chronic kidney disease, stage 3 (moderate); I48.0 Paroxysmal atrial fibrillation; R35.0 Frequency of micturition; K21.9 Gastro-esophageal reflux disease without esophagitis; M10.9 Gout, unspecified; N40.0 Benign prostatic hyperplasia without lower urinary tract symptoms; Z87.891 Personal history of nicotine dependence; Z79.01 Long term (current) use of anticoagulants; E78.5 Hyperlipidemia, unspecified; I73.9 Peripheral vascular disease, unspecified; Z79.84 Long term (current) use of oral hypoglycemic drugs; M54.5 Low back pain
CPT/HCPCS: 36415; 70450-TC; 70498-TC; 70544-TC; 70551-TC; 71046-TC-FY; 80048; 80053; 80061; 81003; 81015; 82962; 83036; 83721; 83735; 84100; 84443; 84484; 85025; 85610; 85730; 86850; 86900; 86901; 86922; 87086; 88304-TC; 93005; 93010; 97116-GP; 97161-GP; 99284-25; G0378; J1644; J7030

== ENCOUNTER 2020-03-16 09:33 | Emergency (ER) | payer OTHER ==
[2020-03-16 09:46] VITALS: BP 157/86; PULSE 107; TEMP 98.1; BMI 25.1
--- NOTE | 2020-03-16 09:57 | PDOC ---
History of Present Illness - General Chief Complaint: Pain Stated Complaint: ABD PAIN - History of Present Illness Initial Comments: 03/16/20 10:14 84 y/o M hx of afib on eloquis, diabetes, gerd,htn,hld,right , lumbar spine discectomy with fusion presents to the ED with intermittent abdominal pain over the last 1 week. Pt describes pain as sharp, stabbing pain on the right side of his stomach and radiates to his left side. last BM yesterday non bloody,non-watery stool, nausea with no vomiting. ROS: GENERAL/CONSTITUTIONAL: No fever or chills. No weakness. HEAD, EYES, EARS, NOSE AND THROAT: No change in vision. No ear pain or discharg e. No sore throat. CARDIOVASCULAR: No chest pain or shortness of breath RESPIRATORY: No cough, wheezing, or hemoptysis. GASTROINTESTINAL: No nausea, vomiting, diarrhea or constipation. GENITOURINARY: No dysuria, frequency, or change in urination. MUSCULOSKELETAL: No joint or muscle swelling or pain. No neck or back pain. SKIN: No rash NEUROLOGIC: No headache, vertigo, loss of consciousness, or change in strength/sensation. ENDOCRINE: No increased thirst. No abnormal weight change HEMATOLOGIC/LYMPHATIC: No anemia, easy bleeding, or history of blood clots. ALLERGIC/IMMUNOLOGIC: No hives or skin allergy. PE: GENERAL: Awake, alert, and fully oriented, in no acute distress HEAD: No signs of trauma, normocephalic, atraumatic EYES: EOMI, sclera anicteric, conjunctiva clear ENT: Auricles normal inspection, hearing grossly normal, nares patent, oropharynx clear without exudates. Moist mucosa NECK: Normal ROM, supple, no lymphadenopathy, JVD, or masses LUNGS: No distress, speaks full sentences, clear to auscultation bilaterally HEART: Regular rate and rhythm, normal S1 and S2, no murmurs, rubs or gallops, peripheral pulses normal and equal bilaterally. ABDOMEN: Soft, ttp RUQ, RLQ.guarding in RLQ. no cva tenderness EXTREMITIES : Normal inspection, Normal range of motion, no edema. No clubbing or cyanosis NEUROLOGICAL: Cranial nerves II through XII grossly intact. Normal speech, no focal sensorimotor deficits SKIN: Warm, Dry, normal turgor, no rashes or lesions noted MDM DDx including but not limited to: cholelithiasis, cholecystitis, appendicitis, mesenteric ischemia, diverticulitis. Workup: labs, ekg, chest x-ray, ct abdomen and pelvis TX: Scores - HEART score - EKG: normal sinus rhythm, HR bpm, TX ms, QRS ms, QTc ms ED course meds: Re-assessment: 03/16/20 10:43 Past History - Medical History Allergies/Adverse Reactions: Allergies Allergy/AdvReac Type Severity Reaction Status Date / Time No Known Allergies Allergy Verified 03/16/20 09:47 Home Medications: Ambulatory Orders Allopurinol [Zyloprim -] 100 mg PO DAILY 02/25/14 Metoprolol Succinate [Toprol XL -] 25 mg PO BID 11/24/15 Finasteride [Proscar] 5 mg PO DAILY 08/13/18 Pioglitazone HCl 15 mg PO DAILY 08/13/18 Atorvastatin Ca [Lipitor] 20 mg PO HS #30 tablet 08/15/18 Acetaminophen [Tylenol .Regular Strength -] 325 mg PO Q4H PRN tablet 09/11/18 Apixaban [Eliquis -] 2.5 mg PO BID #60 tablet 09/11/18 Clopidogrel Bisulfate [Plavix -] 75 mg PO DAILY #30 tablet 09/11/18 Diltiazem Cd [Cardizem Cd -] 240 mg PO DAILY #30 cap.cd.24h 09/11/18 Polyethylene Glycol 3350 [Miralax 119 gm Btl -] 17 gm PO DAILY bottle 09/11/18 Anemia: No Asthma: No Cancer: No Cardiac Disorders: Yes (A-fib) CVA: No COPD: No CHF: No Dementia: No Diabetes: Yes (Borderline DM) GI Disorders: Yes (GERD) Disorders: No HTN: Yes Hypercholesterolemia: Yes Liver Disease: No Seizures: No Thyroid Disease: No - Surgical History Abdominal Surgery: No Appendectomy: No Cardiac Surgery: Yes (Right carotid endarterectomy) Cholecystectomy: Yes Lung Surgery: No Neurologic Surgery: Yes (Lumbar spine discectomy w/fusion) Orthopedic Surgery: Yes (Lumbar spine) - Immunization History Immunization Up to Date: Yes - Psycho-Social/Smoking History Smoking Status: No Smoking History: Former smoker Have you smoked in the past 12 months: No Number of Cigarettes Smoked Daily: 0 If you are a former smoker, when did you quit?: 11 YRS AGO Cigars Per Day: 1 Information on smoking cessation initiated: No 'Breaking Loose' booklet given: 08/14/18 - Substance Abuse Hx (Audit-C & DAST Scrn) How often the patient has a drink containing alcohol: Never Score: In Men: 4 or > Positive; In Women: 3 or > Positive: 0 Screen Result (Pos requires Nsg. Audit-10AR): Negative In the last yr the pt used illegal drug/Rx for NonMed reason: No Score: Yes response is considered Positive: 0 Screen Result (Positive result requires Nsg. DAST-10): Negative *Physical Exam - Vital Signs Last Vital Signs Temp Pulse Resp BP Pulse Ox 98.1 F 107 H 157/86 97 03/16/20 09:42 03/16/20 09:42 03/16/20 09:42 03/16/20 09:42 ED Treatment Course - LABORATORY CBC & Chemistry Diagram: 03/16/20 10:15 03/16/20 10:15 Discharge - Discharge Information Problems reviewed: Yes Clinical Impression/Diagnosis: Abdominal pain Condition: Stable Disposition: HOME - Follow up/Referral Referrals: Elmer Gómez MD [Primary Care Provider] - Tracey Galdamez MD [Staff Physician] - Jorge A Mendez DO [Staff Physician] - - Patient Discharge Instructions Patient Printed Discharge Instructions: DI for Abdominal Pain-Adult Additional Instructions: Please return to the emergency department immediately should you feel worse in any way or have any of the following symptoms: increasing or different abdominal pain, persistent vomiting, fevers or shaking chills. Please return to the emergency department for a recheck in 8-12 hours if the pain is persistent or worse so we can re-evaluate you and ensure that you are not developing a problem that would require surgery or hospitalization. Follow up with a primary care doctor and Gi doctor in the next few days. - Post Discharge Activity
[2020-03-16 11:11] LABS: BASO % 0.7 % (0-2.0); EOS % 3.3 % (0-4.5); HEMOGLOBIN 15.2 GM/dL (11.7-16.9); LYMPH % 16.3 % (8-40); MCH 31.8 pg (25.7-33.7); MCHC 33.7 g/dl (32.0-35.9); MEAN CELL VOLUME 94.4 fl (80-96); MEAN PLT VOLUME 10.3 fl (7.5-11.1); MONO % 6.5 % (3.8-10.2); NEUT % 73.2 % (42.8-82.8); PLATELET COUNT 175 K/MM3 (134-434); RBC 4.77 M/mm3 (4.00-5.60); RDW 17.1 % (11.9-15.9)
[2020-03-16 11:16] LABS: INR 1.11 (0.83-1.09); PROTHROMBIN TIME (PATIENT) 13.1 SEC (9.7-13.0)
[2020-03-16 11:19] LABS: ACTIVATED PTT 29.9 SECONDS (25.2-36.5)
[2020-03-16 11:51] LABS: ALBUMIN 3.7 g/dl (3.4-5.0); ALK PHOS 138 U/L (45-117); ANION GAP 6 MMOL/L (8-16); BILIRUBIN,TOTAL 0.7 mg/dL (0.2-1); BLOOD UREA NITROGEN 40.7 mg/dL (7-18); CALCIUM 8.8 mg/dL (8.5-10.1); CHLORIDE 108 mmol/L (98-107); CO2 29 mmol/L (21-32); CREATININE 2.2 mg/dL (0.55-1.3); GLUCOSE,RANDOM 156 mg/dL (74-106); LIPASE 83 U/L (73-393); POTASSIUM 3.7 mmol/L (3.5-5.1); SGOT/AST 19 U/L (15-37); SGPT/ALT 18 U/L (13-61); SODIUM 144 mmol/L (136-145); TOT PROT 6.8 g/dl (6.4-8.2)
--- NOTE | 2020-03-16 12:34 | EKG ---
Test Reason : Blood Pressure : / mmHG Vent. Rate : 117 BPM Atrial Rate : 241 BPM P-R Int : 000 ms QRS Dur : 132 ms QT Int : 372 ms P-R-T Axes : 000 033 -31 degrees QTc Int : 518 ms POOR DATA QUALITY, INTERPRETATION MAY BE ADVERSELY AFFECTED ATRIAL FIBRILLATION WITH RAPID VENTRICULAR RESPONSE WITH PREMATURE VENTRICULAR OR ABERRANTLY CONDUCTED COMPLEXES RIGHT BUNDLE BRANCH BLOCK T WAVE ABNORMALITY, CONSIDER INFERIOR ISCHEMIA ABNORMAL ECG WHEN COMPARED WITH ECG OF 05-SEP-2018 11:01, ATRIAL FIBRILLATION HAS REPLACED SINUS RHYTHM BORDERLINE CRITERIA FOR INFERIOR INFARCT ARE NO LONGER PRESENT T WAVE INVERSION MORE EVIDENT IN INFERIOR LEADS T WAVE INVERSION NOW EVIDENT IN ANTERIOR LEADS Confirmed by ADITYA KING MD ([id number]) on 03/16/2020 12:34:36 PM Referred By: Confirmed By:ADITYA KING MD
--- NOTE | 2020-03-16 14:12 | PDOC ---
Documentation entered by Cadence Alvarez SCRIBE, acting as scribe for Mari More MD. Mari More MD: This documentation has been prepared by the Antonio lau Xhesika, SCRIBE, under my direction and personally reviewed by me in its entirety. I confirm that the documentation accurately reflects all work, treatment, procedures, and medical decision making performed by me. Attending Attestation - Resident Resident Name: Mike Abreu - HPI HPI: 03/16/20 10:53 The patient is a 84y/o M with a pmh of carotid artery stenosis, GERD, HLD, HTN, Gout, BPH, Afib on eloquis, choledocolithiasis, DM2, prior lumbosacral disc degeneration s/p surgical repair who presents to the ED for bilateral abdominal pain that began yesterday. Pt describes his pain as intermittent, gassy, sharp, crampy pain associated with 2 episodes of dark stool and 1 episode of diarrhea. The patient denies chest pain, shortness of breath, headache and dizziness. Denies fever, chills, cough, nausea, vomiting. Denies dysuria, frequency, urgency and hematuria. Allergies: NKDA PCP:Dr. Gómez - Physicial Exam PE: 03/16/20 12:02 GENERAL: Awake, alert, and fully oriented, in no acute distress HEAD: No signs of trauma EYES: PERRLA, EOMI, sclera anicteric, conjunctiva clear ENT: Auricles normal inspection, hearing grossly normal, nares patent, oropharynx clear without exudates. Moist mucosa NECK: Normal ROM, supple, no lymphadenopathy, JVD, or masses LUNGS: Breath sounds equal, clear to auscultation bilaterally. No wheezes, and no crackles HEART: Regular rate and rhythm, normal S1 and S2, no murmurs, rubs or gallops ABDOMEN: Soft, nontender, normoactive bowel sounds. No guarding, no rebound. No masses EXTREMITIES: Normal range of motion, no edema. No clubbing or cyanosis. No cords, erythema, or tenderness NEUROLOGICAL: Cranial nerves II through XII grossly intact. SKIN: Warm, Dry, normal turgor, no rashes lesions noted. - Medical Decision Making 03/16/20 12:55 Pt presents to the ED complaining of intermittent lower abdominal pain. Denies nausea, vomiting or fever. Abdomen is non tender on my exam, and lactate is normal, so mesenteric ischemia is less likely. Differential includes diverticulitis, appendicitis, biliary disease, given age and risk factors, will check Ct abdomen pelvis and reassess. 03/16/20 14:12 Discharge - Discharge Information Problems reviewed: Yes Clinical Impression/Diagnosis: Abdominal pain Condition: Stable Disposition: HOME - Follow up/Referral Referrals: Jorge A Mendez DO [Staff Physician] - Elmer Gómez MD [Primary Care Provider] - Tracey Galdamez MD [Staff Physician] - - Patient Discharge Instructions Patient Printed Discharge Instructions: DI for Abdominal Pain-Adult Additional Instructions: Please return to the emergency department immediately should you feel worse in any way or have any of the following symptoms: increasing or different abdominal pain, persistent vomiting, fevers or shaking chills. Please return to the emergency department for a recheck in 8-12 hours if the pain is persistent or worse so we can re-evaluate you and ensure that you are not developing a problem that would require surgery or hospitalization. Follow up with a primary care doctor and Gi doctor in the next few days. - Post Discharge Activity
== END 2020-03-16 15:57 | disposition home or self-care (01) ==
LOC: JER 09:33
DX: R10.9 Unspecified abdominal pain (principal)
CPT/HCPCS: 36415; 71045-TC-FY; 74176-TC; 80053; 83605; 83690; 84484; 85025; 85610; 85730; 93005; 93010; 99285-25

== ENCOUNTER 2020-06-13 13:12 | Inpatient (IN) | payer OTHER ==
[2020-06-13] MEDS ORDERED: SODIUM CHLORIDE 0.9% 500 ML INFUS.BAG IV ONE ×3 (15:01→20:24)
[2020-06-13] MEDS ORDERED: PANTOPRAZOLE SODIUM 40 MG VIAL IVPUSH ONE (15:26)
[2020-06-13 15:33] LABS: BASO % 0.4 % (0-2.0); EOS % 0.4 % (0-4.5); HEMATOCRIT 38.9 % (35.4-49); HEMOGLOBIN 12.5 GM/dL (11.7-16.9); INR 1.16 (0.83-1.09); LYMPH % 7.9 % (8-40); MCH 29.7 pg (25.7-33.7); MEAN CELL VOLUME 92.7 fl (80-96); NEUT % 87.3 % (42.8-82.8); PLATELET COUNT 213 K/MM3 (134-434); RDW 16.4 % (11.9-15.9); WHITE BLOOD COUNT 15.7 K/mm3 (4.0-10.0)
[2020-06-13 15:36] LABS: ACTIVATED PTT 28.6 SECONDS (25.2-36.5)
[2020-06-13] MEDS ORDERED: PANTOPRAZOLE SODIUM 40 MG VIAL ONE ×3 (15:41→21:26)
[2020-06-13 15:54] LABS: ALBUMIN 3.8 g/dl (3.4-5.0); BLOOD UREA NITROGEN 87.5 mg/dL (7-18); CALCIUM 9.4 mg/dL (8.5-10.1); MAGNESIUM 2.1 mg/dL (1.8-2.4)
[2020-06-13 15:58] LABS: BILIRUBIN,TOTAL 0.7 mg/dL (0.2-1); TOT PROT 6.6 g/dl (6.4-8.2)
[2020-06-13 16:02] LABS: N-TERMINAL BNP 2150.4 pg/ml (5-450)
[2020-06-13] MEDS ORDERED: metoPROLOL SUCCINATE 25 MG TAB.SR.24H (FP) PO ONE (16:33)
[2020-06-13] MEDS ORDERED: METOPROLOL TARTRATE 5 MG/5 ML VIAL IVPUSH ONE ×2 (17:07→22:42)
[2020-06-13] MEDS ORDERED: METOPROLOL TARTRATE 5 MG/5 ML VIAL ONE ×2 (17:09→22:51)
[2020-06-13] MEDS ORDERED: METOPROLOL TARTRATE 25 MG TABLET (FP) ONE (17:09)
[2020-06-13] MEDS: PANTOPRAZOLE SODIUM 80 MG in SODIUM CHLORIDE 100 ML IVPB SCH (17:57)
[2020-06-13 18:58] LABS: BASO % 0.5 % (0-2.0); EOS % 0.6 % (0-4.5); HEMATOCRIT 35.3 % (35.4-49); HEMOGLOBIN 11.5 GM/dL (11.7-16.9); LYMPH % 10.2 % (8-40); MCH 30.6 pg (25.7-33.7); MCHC 32.5 g/dl (32.0-35.9); MEAN CELL VOLUME 94.2 fl (80-96); MEAN PLT VOLUME 10.2 fl (7.5-11.1); MONO % 4.1 % (3.8-10.2); NEUT % 84.6 % (42.8-82.8); PLATELET COUNT 156 K/MM3 (134-434); RBC 3.75 M/mm3 (4.00-5.60); RDW 16.4 % (11.9-15.9); WHITE BLOOD COUNT 16.1 K/mm3 (4.0-10.0)
[2020-06-13] MEDS ORDERED: PHYTONADIONE 10 MG/1 ML AMP IVPB ONE (21:35)
[2020-06-13] MEDS ORDERED: PHYTONADIONE 10 MG/1 ML AMP ONE (22:22)
[2020-06-14 00:40] LABS: BASO % 0.8 % (0-2.0); EOS % 1.6 % (0-4.5); HEMATOCRIT 33.4 % (35.4-49); LYMPH % 15.2 % (8-40); MCH 30.9 pg (25.7-33.7); MEAN CELL VOLUME 93.7 fl (80-96); MEAN PLT VOLUME 9.9 fl (7.5-11.1); MONO % 6.3 % (3.8-10.2); NEUT % 76.1 % (42.8-82.8); PLATELET COUNT 162 K/MM3 (134-434); RBC 3.56 M/mm3 (4.00-5.60); RDW 16.5 % (11.9-15.9); WHITE BLOOD COUNT 15.6 K/mm3 (4.0-10.0)
[2020-06-14 00:50] LABS: URINE APPEARANCE CLEAR; URINE BILIRUBIN NEGATIVE (NEGATIVE); URINE COLOR YELLOW; URINE GLUCOSE (UA) NEGATIVE (NEGATIVE); URINE KETONE NEGATIVE (NEGATIVE); URINE LEUK ESTERASE NEGATIVE (NEGATIVE); URINE NITRITE NEGATIVE (NEGATIVE); URINE PROTEIN NEGATIVE (NEGATIVE); URINE UROBILINOGEN 0.2 mg/dL (0.2-1.0)
[2020-06-14] MEDS ORDERED: SODIUM CHLORIDE 1,000 ML IV SCH ×2 (02:15→17:31)
[2020-06-14] MEDS: PANTOPRAZOLE SODIUM 80 MG in SODIUM CHLORIDE 100 ML IVPB SCH ×3 (02:46→22:14)
[2020-06-14] MEDS ORDERED: METOPROLOL TARTRATE 5 MG/5 ML VIAL ONE ×4 (05:18→16:21)
[2020-06-14] MEDS: METOPROLOL TARTRATE 5 MG/5 ML VIAL IVPUSH PRN ×2 (05:29→11:00)
[2020-06-14] MEDS: INSULIN SLIDING SCALE (NOVOLOG) 1 VIAL SQ SCH ×4 (08:00→22:13)
[2020-06-14 08:25] LABS: BASO % 0.5 % (0-2.0); EOS % 2.1 % (0-4.5); HEMATOCRIT 28.6 % (35.4-49); HEMOGLOBIN 9.3 GM/dL (11.7-16.9); MCH 30.1 pg (25.7-33.7); MCHC 32.5 g/dl (32.0-35.9); MEAN CELL VOLUME 92.7 fl (80-96); MEAN PLT VOLUME 9.6 fl (7.5-11.1); NEUT % 78.4 % (42.8-82.8); PLATELET COUNT 149 K/MM3 (134-434); RBC 3.08 M/mm3 (4.00-5.60); RDW 16.6 % (11.9-15.9); WHITE BLOOD COUNT 11.3 K/mm3 (4.0-10.0)
[2020-06-14 08:46] LABS: INR 1.18 (0.83-1.09); PROTHROMBIN TIME (PATIENT) 14.5 SEC (9.7-13.0)
[2020-06-14 08:52] LABS: ALBUMIN 3.2 g/dl (3.4-5.0); BLOOD UREA NITROGEN 72.8 mg/dL (7-18); CALCIUM 8.6 mg/dL (8.5-10.1)
[2020-06-14 08:56] LABS: CREATININE 1.8 mg/dL (0.55-1.3); PHOSPHOROUS 3.1 mg/dL (2.5-4.9)
[2020-06-14 08:57] LABS: BILIRUBIN,TOTAL 0.7 mg/dL (0.2-1); TOT PROT 5.4 g/dl (6.4-8.2)
[2020-06-14] MEDS ORDERED: PANTOPRAZOLE SODIUM 40 MG VIAL ONE (10:18)
[2020-06-14 12:36] LABS: HEMATOCRIT 32.2 % (35.4-49); HEMOGLOBIN 10.5 GM/dL (11.7-16.9); MCH 30.7 pg (25.7-33.7); MCHC 32.6 g/dl (32.0-35.9); MEAN CELL VOLUME 94.2 fl (80-96); MEAN PLT VOLUME 9.4 fl (7.5-11.1); PLATELET COUNT 186 K/MM3 (134-434); RBC 3.42 M/mm3 (4.00-5.60); RDW 16.6 % (11.9-15.9); WHITE BLOOD COUNT 14.5 K/mm3 (4.0-10.0)
[2020-06-14] MEDS ORDERED: ONDANSETRON 4 MG/2 ML VIAL IVPUSH PRN ×2 (15:49→17:31)
[2020-06-14] MEDS ORDERED: PROPOFOL 20 ML ONE (16:20)
[2020-06-14] MEDS ORDERED: EPINEPHrine 1:10,000 (P-F SYR) 1 MG/10 ML DISP.SYRIN ONE (16:38)
[2020-06-14] MEDS ORDERED: METOPROLOL TARTRATE 5 MG/5 ML VIAL IVPUSH PRN (17:31)
[2020-06-14] MEDS ORDERED: DEXTROSE 5%-0.45% SALINE 1,000 ML IV SCH (18:00)
[2020-06-14 19:40] LABS: HEMATOCRIT 33.4 % (35.4-49); HEMOGLOBIN 10.9 GM/dL (11.7-16.9); MCHC 32.8 g/dl (32.0-35.9); MEAN CELL VOLUME 91.5 fl (80-96); MEAN PLT VOLUME 9.4 fl (7.5-11.1); PLATELET COUNT 158 K/MM3 (134-434); RBC 3.64 M/mm3 (4.00-5.60); RDW 19.6 % (11.9-15.9); WHITE BLOOD COUNT 12.2 K/mm3 (4.0-10.0)
[2020-06-14] MEDS ORDERED: MELATONIN 5 MG TABLETS PO PRN (21:28)
[2020-06-14] MEDS ORDERED: CHLORHEXIDINE GLUCONATE 4% CLEANSER FOR DECOLONIZATION TP SCH (22:00)
[2020-06-14] MEDS ORDERED: MUPIROCIN 2% TOPICAL OINTMENT FOR DECOLONIZATION NS SCH (22:00)
[2020-06-15 07:23] LABS: HEMATOCRIT 31.5 % (35.4-49); HEMOGLOBIN 10.4 GM/dL (11.7-16.9); MCH 30.2 pg (25.7-33.7); MCHC 32.9 g/dl (32.0-35.9); MEAN CELL VOLUME 91.7 fl (80-96); MEAN PLT VOLUME 9.4 fl (7.5-11.1); PLATELET COUNT 139 K/MM3 (134-434); RBC 3.43 M/mm3 (4.00-5.60); RDW 19.5 % (11.9-15.9); WHITE BLOOD COUNT 10.8 K/mm3 (4.0-10.0)
[2020-06-15 07:33] LABS: INR 1.12 (0.83-1.09); PROTHROMBIN TIME (PATIENT) 13.7 SEC (9.7-13.0)
[2020-06-15 07:48] LABS: ALBUMIN 3.3 g/dl (3.4-5.0); CALCIUM 8.8 mg/dL (8.5-10.1)
[2020-06-15 07:49] LABS: BLOOD UREA NITROGEN 50.7 mg/dL (7-18)
[2020-06-15 07:52] LABS: CREATININE 1.8 mg/dL (0.55-1.3)
[2020-06-15 07:53] LABS: BILIRUBIN,TOTAL 1.3 mg/dL (0.2-1); TOT PROT 5.7 g/dl (6.4-8.2)
[2020-06-15] MEDS: INSULIN SLIDING SCALE (NOVOLOG) 1 VIAL SQ SCH ×3 (08:51→21:09)
[2020-06-15] MEDS ORDERED: MELATONIN 5 MG TABLETS PO PRN ×2 (08:52→15:17)
[2020-06-15] MEDS ORDERED: METOPROLOL TARTRATE 5 MG/5 ML VIAL IVPUSH PRN ×4 (08:52→15:17)
[2020-06-15] MEDS ORDERED: DEXTROSE 5%-0.45% SALINE 1,000 ML IV SCH ×3 (08:52→15:17)
[2020-06-15] MEDS ORDERED: ONDANSETRON 4 MG/2 ML VIAL IVPUSH PRN ×2 (08:52→15:17)
[2020-06-15] MEDS ORDERED: MUPIROCIN 2% TOPICAL OINTMENT FOR DECOLONIZATION NS SCH ×2 (10:00)
[2020-06-15 10:26] LABS: MAGNESIUM 2.1 mg/dL (1.8-2.4)
[2020-06-15 10:30] LABS: PHOSPHOROUS 3.5 mg/dL (2.5-4.9)
[2020-06-15] MEDS ORDERED: FINASTERIDE 5 MG TABLET (FP) PO SCH (11:00)
[2020-06-15] MEDS ORDERED: INSULIN SLIDING SCALE (NOVOLOG) 1 VIAL SQ SCH (11:00)
[2020-06-15 15:01] VITALS: BMI 28.8
[2020-06-15] MEDS ORDERED: PANTOPRAZOLE SODIUM 80 MG in SODIUM CHLORIDE 100 ML IVPB SCH (18:45)
[2020-06-15] MEDS: ATORVASTATIN CA 20 MG TABLET (FP) PO SCH (21:09)
[2020-06-15] MEDS ORDERED: CHLORHEXIDINE GLUCONATE 4% CLEANSER FOR DECOLONIZATION TP SCH ×2 (22:00)
[2020-06-15] MEDS ORDERED: ATORVASTATIN CA 20 MG TABLET (FP) PO SCH (22:00)
[2020-06-15] MEDS: MAG HYDROX/AL HYDROX/SIMETH 30 ML UNIT-DOSE CUP PO SCH (22:30)
[2020-06-16] MEDS: MAG HYDROX/AL HYDROX/SIMETH 30 ML UNIT-DOSE CUP PO SCH ×4 (04:50→22:00)
[2020-06-16] MEDS: INSULIN SLIDING SCALE (NOVOLOG) 1 VIAL SQ SCH ×4 (06:32→22:03)
[2020-06-16 07:22] LABS: BASO % 0.6 % (0-2.0); EOS % 4.7 % (0-4.5); HEMATOCRIT 28.8 % (35.4-49); HEMOGLOBIN 9.4 GM/dL (11.7-16.9); MCH 29.6 pg (25.7-33.7); MCHC 32.5 g/dl (32.0-35.9); MEAN PLT VOLUME 9.3 fl (7.5-11.1); MONO % 7.1 % (3.8-10.2); NEUT % 73.6 % (42.8-82.8); PLATELET COUNT 136 K/MM3 (134-434); RBC 3.17 M/mm3 (4.00-5.60); RDW 19.1 % (11.9-15.9); WHITE BLOOD COUNT 7.9 K/mm3 (4.0-10.0)
[2020-06-16] MEDS: ALLOPURINOL 100 MG TABLET (FP) PO SCH (09:59)
[2020-06-16] MEDS: PANTOPRAZOLE 40 MG TABLET PO SCH ×2 (09:59→22:04)
[2020-06-16] MEDS ORDERED: PANTOPRAZOLE 40 MG TABLET PO SCH (10:00)
[2020-06-16] MEDS ORDERED: ALLOPURINOL 100 MG TABLET (FP) PO SCH (10:00)
[2020-06-16 20:07] LABS: CALCIUM 8.7 mg/dL (8.5-10.1)
[2020-06-16 20:08] LABS: BLOOD UREA NITROGEN 34.9 mg/dL (7-18)
[2020-06-16 20:11] LABS: CREATININE 1.9 mg/dL (0.55-1.3)
[2020-06-16 20:13] LABS: BILIRUBIN,TOTAL 1.6 mg/dL (0.2-1); TOT PROT 5.2 g/dl (6.4-8.2)
[2020-06-16] MEDS: ATORVASTATIN CA 20 MG TABLET (FP) PO SCH (22:04)
[2020-06-17] MEDS: MAG HYDROX/AL HYDROX/SIMETH 30 ML UNIT-DOSE CUP PO SCH ×4 (04:15→22:14)
[2020-06-17 07:04] LABS: BASO % 0.7 % (0-2.0); EOS % 4.5 % (0-4.5); HEMATOCRIT 33.7 % (35.4-49); HEMOGLOBIN 10.8 GM/dL (11.7-16.9); LYMPH % 18.3 % (8-40); MCH 29.2 pg (25.7-33.7); MCHC 31.9 g/dl (32.0-35.9); MEAN CELL VOLUME 91.5 fl (80-96); MEAN PLT VOLUME 9.7 fl (7.5-11.1); MONO % 6.1 % (3.8-10.2); NEUT % 70.4 % (42.8-82.8); PLATELET COUNT 211 K/MM3 (134-434); RBC 3.69 M/mm3 (4.00-5.60); RDW 18.6 % (11.9-15.9); WHITE BLOOD COUNT 13.4 K/mm3 (4.0-10.0)
[2020-06-17 07:25] LABS: ALBUMIN 3.6 g/dl (3.4-5.0); BLOOD UREA NITROGEN 31.1 mg/dL (7-18); CALCIUM 9.1 mg/dL (8.5-10.1); MAGNESIUM 1.9 mg/dL (1.8-2.4)
[2020-06-17 07:28] LABS: CREATININE 1.9 mg/dL (0.55-1.3); PHOSPHOROUS 3.9 mg/dL (2.5-4.9)
[2020-06-17 07:29] LABS: BILIRUBIN,TOTAL 1.4 mg/dL (0.2-1); TOT PROT 6.6 g/dl (6.4-8.2)
[2020-06-17] MEDS: ALLOPURINOL 100 MG TABLET (FP) PO SCH (09:50)
[2020-06-17] MEDS: PANTOPRAZOLE 40 MG TABLET PO SCH ×2 (09:50→21:48)
[2020-06-17] MEDS: FINASTERIDE 5 MG TABLET (FP) PO SCH (09:50)
[2020-06-17] MEDS: metoPROLOL SUCCINATE 25 MG TAB.SR.24H (FP) PO SCH ×2 (10:05→21:48)
[2020-06-17] MEDS ORDERED: dilTIAZem HCL 60 MG TABLET PO ONE (11:25)
[2020-06-17] MEDS: INSULIN SLIDING SCALE (NOVOLOG) 1 VIAL SQ SCH ×3 (12:55→22:13)
[2020-06-17] MEDS: ATORVASTATIN CA 20 MG TABLET (FP) PO SCH (21:48)
[2020-06-17] MEDS ORDERED: INSULIN (NOVOLOG) ASPART 100 UNITS/ML 10ML VIAL ONE (22:04)
[2020-06-18] MEDS: MAG HYDROX/AL HYDROX/SIMETH 30 ML UNIT-DOSE CUP PO SCH ×4 (05:49→23:21)
[2020-06-18] MEDS: INSULIN SLIDING SCALE (NOVOLOG) 1 VIAL SQ SCH ×4 (06:34→21:16)
[2020-06-18 06:47] LABS: BASO % 0.6 % (0-2.0); EOS % 4.1 % (0-4.5); HEMATOCRIT 26.6 % (35.4-49); HEMOGLOBIN 8.9 GM/dL (11.7-16.9); LYMPH % 16.7 % (8-40); MCH 30.4 pg (25.7-33.7); MCHC 33.5 g/dl (32.0-35.9); MEAN CELL VOLUME 90.5 fl (80-96); MEAN PLT VOLUME 9.1 fl (7.5-11.1); MONO % 7.4 % (3.8-10.2); NEUT % 71.2 % (42.8-82.8); PLATELET COUNT 159 K/MM3 (134-434); RBC 2.94 M/mm3 (4.00-5.60); RDW 18.6 % (11.9-15.9)
[2020-06-18] MEDS: PANTOPRAZOLE 40 MG TABLET PO SCH ×2 (09:37→21:12)
[2020-06-18] MEDS: ALLOPURINOL 100 MG TABLET (FP) PO SCH (09:37)
[2020-06-18] MEDS: FINASTERIDE 5 MG TABLET (FP) PO SCH (09:40)
[2020-06-18] MEDS: metoPROLOL SUCCINATE 25 MG TAB.SR.24H (FP) PO SCH ×2 (12:26→21:15)
[2020-06-18] MEDS: ATORVASTATIN CA 20 MG TABLET (FP) PO SCH (21:12)
[2020-06-19] MEDS: MAG HYDROX/AL HYDROX/SIMETH 30 ML UNIT-DOSE CUP PO SCH ×4 (06:47→23:50)
[2020-06-19] MEDS: INSULIN SLIDING SCALE (NOVOLOG) 1 VIAL SQ SCH ×5 (06:53→21:37)
[2020-06-19 07:52] LABS: ALBUMIN 3.2 g/dl (3.4-5.0); CALCIUM 8.6 mg/dL (8.5-10.1)
[2020-06-19 07:53] LABS: BLOOD UREA NITROGEN 30.6 mg/dL (7-18); MAGNESIUM 2.3 mg/dL (1.8-2.4)
[2020-06-19 07:54] LABS: BASO % 0.3 % (0-2.0); EOS % 3.9 % (0-4.5); HEMATOCRIT 28.4 % (35.4-49); HEMOGLOBIN 9.5 GM/dL (11.7-16.9); LYMPH % 13.3 % (8-40); MCH 30.6 pg (25.7-33.7); MCHC 33.5 g/dl (32.0-35.9); MEAN CELL VOLUME 91.3 fl (80-96); MEAN PLT VOLUME 9.3 fl (7.5-11.1); MONO % 7.9 % (3.8-10.2); NEUT % 74.6 % (42.8-82.8); PLATELET COUNT 184 K/MM3 (134-434); RBC 3.11 M/mm3 (4.00-5.60); WHITE BLOOD COUNT 8.8 K/mm3 (4.0-10.0)
[2020-06-19 07:56] LABS: CREATININE 2.1 mg/dL (0.55-1.3); PHOSPHOROUS 3.5 mg/dL (2.5-4.9)
[2020-06-19 07:57] LABS: BILIRUBIN,TOTAL 0.7 mg/dL (0.2-1); TOT PROT 5.6 g/dl (6.4-8.2)
[2020-06-19] MEDS: FINASTERIDE 5 MG TABLET (FP) PO SCH (09:05)
[2020-06-19] MEDS: ALLOPURINOL 100 MG TABLET (FP) PO SCH (09:05)
[2020-06-19] MEDS: PANTOPRAZOLE 40 MG TABLET PO SCH ×2 (09:05→21:34)
[2020-06-19] MEDS: metoPROLOL SUCCINATE 25 MG TAB.SR.24H (FP) PO SCH ×2 (09:05→21:33)
[2020-06-19] MEDS: PANTOPRAZOLE SODIUM 80 MG in SODIUM CHLORIDE 100 ML IVPB SCH (20:10)
[2020-06-19] MEDS: ATORVASTATIN CA 20 MG TABLET (FP) PO SCH (21:34)
[2020-06-20] MEDS: MAG HYDROX/AL HYDROX/SIMETH 30 ML UNIT-DOSE CUP PO SCH ×3 (05:00→17:59)
[2020-06-20] MEDS: INSULIN SLIDING SCALE (NOVOLOG) 1 VIAL SQ SCH ×4 (06:05→21:22)
[2020-06-20 08:15] LABS: BASO % 0.6 % (0-2.0); EOS % 3.6 % (0-4.5); HEMATOCRIT 32.7 % (35.4-49); HEMOGLOBIN 10.6 GM/dL (11.7-16.9); LYMPH % 17.8 % (8-40); MCH 29.9 pg (25.7-33.7); MCHC 32.3 g/dl (32.0-35.9); MEAN CELL VOLUME 92.5 fl (80-96); MEAN PLT VOLUME 9.4 fl (7.5-11.1); MONO % 6.1 % (3.8-10.2); NEUT % 71.9 % (42.8-82.8); PLATELET COUNT 222 K/MM3 (134-434); RBC 3.53 M/mm3 (4.00-5.60); RDW 18.6 % (11.9-15.9); WHITE BLOOD COUNT 11.7 K/mm3 (4.0-10.0)
[2020-06-20 08:34] LABS: ALBUMIN 3.6 g/dl (3.4-5.0)
[2020-06-20 08:35] LABS: MAGNESIUM 2.7 mg/dL (1.8-2.4)
[2020-06-20 08:38] LABS: CREATININE 2.1 mg/dL (0.55-1.3)
[2020-06-20 08:39] LABS: BILIRUBIN,TOTAL 1.1 mg/dL (0.2-1); TOT PROT 6.7 g/dl (6.4-8.2)
[2020-06-20] MEDS: FINASTERIDE 5 MG TABLET (FP) PO SCH (09:11)
[2020-06-20] MEDS: ALLOPURINOL 100 MG TABLET (FP) PO SCH (09:11)
[2020-06-20] MEDS: metoPROLOL SUCCINATE 25 MG TAB.SR.24H (FP) PO SCH ×2 (09:11→21:23)
[2020-06-20] MEDS: PANTOPRAZOLE 40 MG TABLET PO SCH ×2 (09:11→21:23)
[2020-06-20] MEDS ORDERED: MAGNESIUM OXIDE 400 MG TABLET (FP) PO ONE (09:30)
[2020-06-20 11:37] LABS: ANISOCYTOSIS 3+; MACROCYTOSIS 0; PLATELET ESTIMATE NORMAL
[2020-06-20] MEDS: ATORVASTATIN CA 20 MG TABLET (FP) PO SCH (21:22)
[2020-06-21] MEDS: MAG HYDROX/AL HYDROX/SIMETH 30 ML UNIT-DOSE CUP PO SCH ×3 (01:44→11:22)
[2020-06-21] MEDS: INSULIN SLIDING SCALE (NOVOLOG) 1 VIAL SQ SCH ×2 (06:07→11:22)
[2020-06-21 08:23] LABS: ALBUMIN 3.2 g/dl (3.4-5.0); BASO % 0.6 % (0-2.0); CALCIUM 8.5 mg/dL (8.5-10.1); EOS % 2.8 % (0-4.5); HEMATOCRIT 29.5 % (35.4-49); HEMOGLOBIN 9.7 GM/dL (11.7-16.9); LYMPH % 15.1 % (8-40); MAGNESIUM 2.4 mg/dL (1.8-2.4); MCH 30.1 pg (25.7-33.7); MCHC 32.8 g/dl (32.0-35.9); MEAN PLT VOLUME 9.3 fl (7.5-11.1); MONO % 7.1 % (3.8-10.2); NEUT % 74.4 % (42.8-82.8); PLATELET COUNT 196 K/MM3 (134-434); RDW 18.5 % (11.9-15.9); WHITE BLOOD COUNT 10.1 K/mm3 (4.0-10.0)
[2020-06-21 08:24] LABS: BLOOD UREA NITROGEN 31.4 mg/dL (7-18)
[2020-06-21 08:26] LABS: PHOSPHOROUS 2.4 mg/dL (2.5-4.9)
[2020-06-21 08:27] LABS: CREATININE 1.8 mg/dL (0.55-1.3)
[2020-06-21 08:28] LABS: BILIRUBIN,TOTAL 0.8 mg/dL (0.2-1); TOT PROT 5.8 g/dl (6.4-8.2)
[2020-06-21] MEDS ORDERED: NAPH,MB-DB/K PH,MBDB POWDER PACKET PO ONE (09:12)
[2020-06-21] MEDS: PANTOPRAZOLE 40 MG TABLET PO SCH (09:43)
[2020-06-21] MEDS: metoPROLOL SUCCINATE 25 MG TAB.SR.24H (FP) PO SCH (09:43)
[2020-06-21] MEDS: ALLOPURINOL 100 MG TABLET (FP) PO SCH (09:43)
[2020-06-21] MEDS: FINASTERIDE 5 MG TABLET (FP) PO SCH (09:43)
[2020-06-21 09:45] VITALS: BP 140/74; PULSE 92; TEMP 97.6
[2020-06-21] MEDS ORDERED: INSULIN (NOVOLOG) ASPART 100 UNITS/ML 10ML VIAL ONE (11:36)
== END 2020-06-21 14:04 | disposition home health service (06) | DRG 378 ==
LOC: JER 13:12 → JERBED 19:00 → JICU 06-14 21:21 → J4W 06-17 21:28
PROVIDERS: ADMIT Family Medicine; ATTEND Internal Medicine
PROC: 5A12012 Performance of Cardiac Output, Single, Manual (ICD-10-PCS; principal; 2020-06-14)
PROC: 30233N1 Transfusion of Nonautologous Red Blood Cells into Peripheral Vein, Percutaneous Approach (ICD-10-PCS; 2020-06-14)
PROC: 0DJ08ZZ Inspection of Upper Intestinal Tract, Via Natural or Artificial Opening Endoscopic (ICD-10-PCS; 2020-06-14)
DX: K26.0 Acute duodenal ulcer with hemorrhage (principal); N17.9 Acute kidney failure, unspecified; I97.121 Postprocedural cardiac arrest following other surgery; E87.2 Acidosis; I48.0 Paroxysmal atrial fibrillation; I10 Essential (primary) hypertension; E78.5 Hyperlipidemia, unspecified; E11.9 Type 2 diabetes mellitus without complications; N18.30 Chronic kidney disease, stage 3 unspecified; I65.21 Occlusion and stenosis of right carotid artery; I13.10 Hypertensive heart and chronic kidney disease without heart failure, with stage 1 through stage 4 chronic kidney disease, or unspecified chronic kidney disease; K21.9 Gastro-esophageal reflux disease without esophagitis; N40.0 Benign prostatic hyperplasia without lower urinary tract symptoms; M10.9 Gout, unspecified; R00.1 Bradycardia, unspecified; I73.9 Peripheral vascular disease, unspecified; K76.0 Fatty (change of) liver, not elsewhere classified; D64.9 Anemia, unspecified; D72.829 Elevated white blood cell count, unspecified
CPT/HCPCS: 36415; 36430; 70450-TC; 71045-TC-FY; 74176-TC; 80053; 81003; 82248; 82272; 82550; 82553; 82607; 82728; 82746; 82962; 83540; 83550; 83605; 83735; 83880; 84100; 84443; 84484; 85025; 85027; 85045; 85610; 85730; 86850; 86900; 86901; 86922; 87040; 93005; 93010; 93306-TC; 94760; 97116-GP; 97161-GP; 99285-25; C9803; P9058; U0003

== ENCOUNTER 2020-07-06 00:18 | Inpatient (IN) | payer OTHER ==
[2020-07-06 02:09] LABS: CHLORIDE 109 mmol/L (98-107); SODIUM 143 mmol/L (136-145)
[2020-07-06 02:11] LABS: ALBUMIN 3.4 g/dl (3.4-5.0); ANION GAP 8 MMOL/L (8-16); BLOOD UREA NITROGEN 49.3 mg/dL (7-18); CALCIUM 8.4 mg/dL (8.5-10.1); CO2 26 mmol/L (21-32); GLUCOSE,RANDOM 141 mg/dL (74-106)
[2020-07-06 02:14] LABS: CREATININE 2.2 mg/dL (0.55-1.3); INR 1.09 (0.83-1.09); PROTHROMBIN TIME (PATIENT) 13.2 SEC (9.7-13.0); SGOT/AST 22 U/L (15-37); SGPT/ALT 20 U/L (13-61)
[2020-07-06 02:16] LABS: BILIRUBIN,TOTAL 0.9 mg/dL (0.2-1); TOT PROT 6.4 g/dl (6.4-8.2)
[2020-07-06 02:17] LABS: ALK PHOS 144 U/L (45-117)
[2020-07-06 02:19] LABS: N-TERMINAL BNP 7970.3 pg/ml (5-450)
[2020-07-06 03:25] LABS: BASO % 0.8 % (0-2.0); EOS % 3.2 % (0-4.5); HEMATOCRIT 29.1 % (35.4-49); HEMOGLOBIN 9.4 GM/dL (11.7-16.9); LYMPH % 10.6 % (8-40); MCH 28.2 pg (25.7-33.7); MCHC 32.3 g/dl (32.0-35.9); MEAN CELL VOLUME 87.2 fl (80-96); MEAN PLT VOLUME 8.3 fl (7.5-11.1); MONO % 6.5 % (3.8-10.2); NEUT % 78.9 % (42.8-82.8); PLATELET COUNT 230 K/MM3 (134-434); RBC 3.34 M/mm3 (4.00-5.60); RDW 19.5 % (11.9-15.9); WHITE BLOOD COUNT 10.7 K/mm3 (4.0-10.0)
[2020-07-06] MEDS ORDERED: FUROSEMIDE 40 MG/4 ML INJECTABLE VIAL IVPUSH ONE (04:28)
[2020-07-06] MEDS ORDERED: FUROSEMIDE 40 MG/4 ML INJECTABLE VIAL ONE (05:26)
[2020-07-06] MEDS ORDERED: PANTOPRAZOLE SODIUM 40 MG VIAL IVPUSH ONE (08:13)
[2020-07-06 08:48] LABS: URINE APPEARANCE CLEAR; URINE BILIRUBIN NEGATIVE (NEGATIVE); URINE COLOR YELLOW; URINE GLUCOSE (UA) NEGATIVE (NEGATIVE); URINE KETONE NEGATIVE (NEGATIVE); URINE LEUK ESTERASE NEGATIVE (NEGATIVE); URINE NITRITE NEGATIVE (NEGATIVE); URINE PROTEIN NEGATIVE (NEGATIVE); URINE UROBILINOGEN 0.2 mg/dL (0.2-1.0)
[2020-07-06] MEDS ORDERED: PANTOPRAZOLE SODIUM 40 MG VIAL ONE (09:04)
[2020-07-06 09:37] LABS: BASO % 0.6 % (0-2.0); HEMATOCRIT 30.3 % (35.4-49); HEMOGLOBIN 9.8 GM/dL (11.7-16.9); LYMPH % 12.3 % (8-40); MCH 28.1 pg (25.7-33.7); MCHC 32.3 g/dl (32.0-35.9); MEAN CELL VOLUME 86.9 fl (80-96); MEAN PLT VOLUME 8.4 fl (7.5-11.1); MONO % 5.4 % (3.8-10.2); NEUT % 77.7 % (42.8-82.8); PLATELET COUNT 225 K/MM3 (134-434); RBC 3.48 M/mm3 (4.00-5.60); RDW 19.1 % (11.9-15.9); WHITE BLOOD COUNT 9.4 K/mm3 (4.0-10.0)
[2020-07-06 10:02] LABS: INR 1.08 (0.83-1.09); PROTHROMBIN TIME (PATIENT) 13.2 SEC (9.7-13.0)
[2020-07-06 10:04] LABS: CALCIUM 8.5 mg/dL (8.5-10.1)
[2020-07-06 10:05] LABS: ACTIVATED PTT 30.8 SECONDS (25.2-36.5); ALBUMIN 3.5 g/dl (3.4-5.0); MAGNESIUM 2.4 mg/dL (1.8-2.4)
[2020-07-06 10:08] LABS: CREATININE 2.2 mg/dL (0.55-1.3); PHOSPHOROUS 3.6 mg/dL (2.5-4.9)
[2020-07-06 10:09] LABS: BILIRUBIN,TOTAL 1.2 mg/dL (0.2-1); TOT PROT 6.5 g/dl (6.4-8.2)
[2020-07-06] MEDS: INSULIN SLIDING SCALE (NOVOLOG) 1 VIAL SQ SCH ×3 (11:11→21:14)
[2020-07-06 11:59] LABS: CREATININE, URINE RANDOM < 13.0 mg/dL (30-150)
[2020-07-06 18:15] VITALS: BMI 30.2
[2020-07-07] MEDS: INSULIN SLIDING SCALE (NOVOLOG) 1 VIAL SQ SCH ×4 (06:24→21:43)
[2020-07-07] MEDS ORDERED: METOPROLOL TARTRATE 5 MG/5 ML VIAL IVPUSH ONE (06:55)
[2020-07-07] MEDS: PANTOPRAZOLE 40 MG TABLET PO SCH (09:37)
[2020-07-07] MEDS: FUROSEMIDE 40 MG TABLET (FP) PO SCH (09:37)
[2020-07-07 09:50] LABS: BLOOD UREA NITROGEN 43.5 mg/dL (7-18)
[2020-07-07 09:53] LABS: CREATININE 2.1 mg/dL (0.55-1.3)
[2020-07-07] MEDS ORDERED: METOPROLOL TARTRATE 50 MG TABLET (FP) PO SCH (10:00)
[2020-07-07] MEDS ORDERED: METOPROLOL TARTRATE 25 MG TABLET (FP) PO SCH (10:00)
[2020-07-07 10:22] LABS: CALCIUM 5.5 mg/dL (8.5-10.1)
[2020-07-07] MEDS ORDERED: BISACODYL 10 MG SUPP.RECT PR ONE (11:13)
[2020-07-07] MEDS ORDERED: SODIUM ZIRCONIUM CYCLOSILICATE (LOKELMA) 10 GM PACKET PO SCH (11:30)
[2020-07-07 12:03] LABS: ALBUMIN 3.2 g/dl (3.4-5.0); BLOOD UREA NITROGEN 43.8 mg/dL (7-18); CALCIUM 8.5 mg/dL (8.5-10.1)
[2020-07-07 12:06] LABS: CREATININE 2.2 mg/dL (0.55-1.3)
[2020-07-07 12:07] LABS: PHOSPHOROUS 4.3 mg/dL (2.5-4.9)
[2020-07-07 12:08] LABS: BILIRUBIN,TOTAL 1.1 mg/dL (0.2-1); TOT PROT 5.9 g/dl (6.4-8.2)
[2020-07-08] MEDS: INSULIN SLIDING SCALE (NOVOLOG) 1 VIAL SQ SCH ×4 (06:29→21:57)
[2020-07-08] MEDS: FUROSEMIDE 40 MG TABLET (FP) PO SCH (09:09)
[2020-07-08] MEDS: PANTOPRAZOLE 40 MG TABLET PO SCH (09:09)
[2020-07-08] MEDS ORDERED: BISACODYL 10 MG SUPP.RECT PR ONE (16:38)
[2020-07-08 17:11] LABS: BASO % 0.6 % (0-2.0); HEMATOCRIT 29.9 % (35.4-49); HEMOGLOBIN 9.7 GM/dL (11.7-16.9); LYMPH % 13.8 % (8-40); MCH 27.9 pg (25.7-33.7); MCHC 32.4 g/dl (32.0-35.9); MEAN CELL VOLUME 85.9 fl (80-96); MEAN PLT VOLUME 8.8 fl (7.5-11.1); MONO % 8.5 % (3.8-10.2); NEUT % 74.1 % (42.8-82.8); PLATELET COUNT 229 K/MM3 (134-434); RBC 3.49 M/mm3 (4.00-5.60); RDW 18.8 % (11.9-15.9); WHITE BLOOD COUNT 9.3 K/mm3 (4.0-10.0)
[2020-07-08] MEDS: metoPROLOL SUCCINATE 25 MG TAB.SR.24H (FP) PO SCH (21:50)
[2020-07-08] MEDS: APIXABAN 2.5 MG TABLET PO SCH (21:50)
[2020-07-08] MEDS: DOCUSATE SODIUM 100 MG CAPSULE (FP) PO SCH (21:50)
[2020-07-09] MEDS: DOCUSATE SODIUM 100 MG CAPSULE (FP) PO SCH ×2 (05:50→14:40)
[2020-07-09] MEDS: INSULIN SLIDING SCALE (NOVOLOG) 1 VIAL SQ SCH ×2 (07:15→12:05)
[2020-07-09 07:52] LABS: BASO % 0.5 % (0-2.0); EOS % 4.9 % (0-4.5); HEMOGLOBIN 10.1 GM/dL (11.7-16.9); LYMPH % 15.4 % (8-40); MCH 27.8 pg (25.7-33.7); MCHC 32.6 g/dl (32.0-35.9); MEAN CELL VOLUME 85.1 fl (80-96); MEAN PLT VOLUME 8.7 fl (7.5-11.1); MONO % 8.3 % (3.8-10.2); NEUT % 70.9 % (42.8-82.8); PLATELET COUNT 209 K/MM3 (134-434); RBC 3.64 M/mm3 (4.00-5.60); RDW 18.8 % (11.9-15.9); WHITE BLOOD COUNT 8.4 K/mm3 (4.0-10.0)
[2020-07-09 08:10] LABS: CALCIUM 8.4 mg/dL (8.5-10.1)
[2020-07-09 08:13] LABS: BLOOD UREA NITROGEN 44.9 mg/dL (7-18); CREATININE 2.2 mg/dL (0.55-1.3)
[2020-07-09] MEDS: PANTOPRAZOLE 40 MG TABLET PO SCH (09:30)
[2020-07-09] MEDS: metoPROLOL SUCCINATE 25 MG TAB.SR.24H (FP) PO SCH (09:30)
[2020-07-09] MEDS: APIXABAN 2.5 MG TABLET PO SCH (09:30)
[2020-07-09] MEDS: FUROSEMIDE 40 MG TABLET (FP) PO SCH (09:30)
[2020-07-09 15:43] VITALS: BP 138/79; PULSE 87; TEMP 97.8
== END 2020-07-09 16:53 | disposition home or self-care (01) | DRG 291 ==
LOC: JER 00:18 → JERBED 01:16 → J4S 15:58
PROVIDERS: ADMIT Hospitalist; ATTEND Internal Medicine
DX: I13.0 Hypertensive heart and chronic kidney disease with heart failure and stage 1 through stage 4 chronic kidney disease, or unspecified chronic kidney disease (principal); I50.31 Acute diastolic (congestive) heart failure; I46.2 Cardiac arrest due to underlying cardiac condition; N17.9 Acute kidney failure, unspecified; N18.9 Chronic kidney disease, unspecified; I48.0 Paroxysmal atrial fibrillation; K21.9 Gastro-esophageal reflux disease without esophagitis; E11.22 Type 2 diabetes mellitus with diabetic chronic kidney disease; E78.5 Hyperlipidemia, unspecified; E87.5 Hyperkalemia
CPT/HCPCS: 36415; 71045-TC-FY; 71250-TC; 80048; 80053; 81003; 82565; 82962; 83735; 83880; 84100; 84300; 84443; 84484; 85025; 85379; 85610; 85730; 87086; 87338; 93005; 93010; 93306-TC; 97161-GP; 99285-25; C9803; U0003

== ENCOUNTER 2020-10-01 10:55 | Observation (INO) | payer OTHER ==
[2020-10-01 12:59] LABS: BASO % 0.8 % (0-2.0); EOS % 3.5 % (0-4.5); HEMATOCRIT 30.7 % (35.4-49); HEMOGLOBIN 9.5 GM/dL (11.7-16.9); LYMPH % 14.8 % (8-40); MCH 23.9 pg (25.7-33.7); MCHC 31.1 g/dl (32.0-35.9); MEAN PLT VOLUME 8.4 fl (7.5-11.1); MONO % 8.5 % (3.8-10.2); NEUT % 72.4 % (42.8-82.8); PLATELET COUNT 210 K/MM3 (134-434); RBC 3.98 M/mm3 (4.00-5.60); RDW 21.3 % (11.9-15.9); WHITE BLOOD COUNT 8.5 K/mm3 (4.0-10.0)
[2020-10-01 13:02] LABS: INR 1.12 (0.83-1.09); PROTHROMBIN TIME (PATIENT) 13.5 SEC (9.7-13.0)
[2020-10-01 13:05] LABS: ACTIVATED PTT 33.9 SECONDS (25.2-36.5)
[2020-10-01 13:15] LABS: ANISOCYTOSIS 3+; MACROCYTOSIS 0; OVALOCYTE 2+; PLATELET ESTIMATE NORMAL; TARGET CELLS 1+
[2020-10-01 13:20] LABS: CHLORIDE 108 mmol/L (98-107); POTASSIUM 4.5 mmol/L (3.5-5.1); SODIUM 143 mmol/L (136-145)
[2020-10-01 13:25] LABS: ANION GAP 6 MMOL/L (8-16); BLOOD UREA NITROGEN 40.9 mg/dL (7-18); CO2 29 mmol/L (21-32)
[2020-10-01 13:26] LABS: ALBUMIN 3.3 g/dl (3.4-5.0); GLUCOSE,RANDOM 118 mg/dL (74-106); MAGNESIUM 2.2 mg/dL (1.8-2.4)
[2020-10-01 13:28] LABS: SGOT/AST 9 U/L (15-37); SGPT/ALT 17 U/L (13-61)
[2020-10-01 13:29] LABS: CREATININE 2.1 mg/dL (0.55-1.3); PHOSPHOROUS 3.6 mg/dL (2.5-4.9)
[2020-10-01 13:30] LABS: BILIRUBIN,TOTAL 0.6 mg/dL (0.2-1); TOT PROT 6.2 g/dl (6.4-8.2)
[2020-10-01 13:31] LABS: ALK PHOS 156 U/L (45-117)
[2020-10-01] MEDS ORDERED: dilTIAZem HCL 60 MG TABLET PO ONE (15:50)
[2020-10-01] MEDS ORDERED: ASPIRIN 81 MG CHEWABLE TABLETS PO ONE (15:51)
[2020-10-01] MEDS ORDERED: ASPIRIN 81 MG CHEWABLE TABLETS ONE (15:56)
[2020-10-01] MEDS ORDERED: dilTIAZem HCL 60 MG TABLET ONE (15:56)
[2020-10-01] MEDS ORDERED: ACETAMINOPHEN 325 MG TABLET (FP) PO PRN (18:00)
[2020-10-01] MEDS: SODIUM CHLORIDE 1,000 ML IV SCH (18:18)
[2020-10-01] MEDS ORDERED: APIXABAN 2.5 MG TABLET ONE (22:09)
[2020-10-01] MEDS ORDERED: ATORVASTATIN CA 20 MG TABLET (FP) ONE (22:10)
[2020-10-01] MEDS ORDERED: PANTOPRAZOLE 40 MG TABLET ONE (22:11)
[2020-10-01] MEDS: ATORVASTATIN CA 20 MG TABLET (FP) PO SCH (22:21)
[2020-10-01] MEDS: PANTOPRAZOLE 40 MG TABLET PO SCH (22:21)
[2020-10-01] MEDS: APIXABAN 2.5 MG TABLET PO SCH (22:21)
[2020-10-01] MEDS: INSULIN SLIDING SCALE (NOVOLOG) 1 VIAL SQ SCH (22:23)
[2020-10-01] MEDS ORDERED: metoPROLOL SUCCINATE 25 MG TAB.SR.24H (FP) ONE (22:39)
[2020-10-01] MEDS: metoPROLOL SUCCINATE 25 MG TAB.SR.24H (FP) PO SCH (23:02)
[2020-10-02] MEDS: INSULIN SLIDING SCALE (NOVOLOG) 1 VIAL SQ SCH ×4 (07:46→21:34)
[2020-10-02 08:17] LABS: CHLORIDE 108 mmol/L (98-107); POTASSIUM 4.1 mmol/L (3.5-5.1); SODIUM 143 mmol/L (136-145)
[2020-10-02 08:28] LABS: ANION GAP 7 MMOL/L (8-16); BLOOD UREA NITROGEN 33.5 mg/dL (7-18); CO2 28 mmol/L (21-32); GLUCOSE,RANDOM 98 mg/dL (74-106)
[2020-10-02 08:30] LABS: CREATININE 1.9 mg/dL (0.55-1.3)
[2020-10-02 08:31] LABS: CHOLESTEROL 95 mg/dL (50-200)
[2020-10-02 08:32] LABS: LDL CHOLESTEROL (ONLY SJRH) 43 mg/dL (5-100); TRIGLYCERIDES 83 mg/dL (0-150)
[2020-10-02 08:34] LABS: HDL CHOLESTEROL 39 mg/dL (40-60)
[2020-10-02 08:39] LABS: BASO % 0.6 % (0-2.0); EOS % 3.1 % (0-4.5); HEMOGLOBIN 9.8 GM/dL (11.7-16.9); LYMPH % 13.8 % (8-40); MCH 24.2 pg (25.7-33.7); MCHC 31.7 g/dl (32.0-35.9); MEAN CELL VOLUME 76.3 fl (80-96); MEAN PLT VOLUME 8.5 fl (7.5-11.1); MONO % 6.1 % (3.8-10.2); NEUT % 76.4 % (42.8-82.8); PLATELET COUNT 182 K/MM3 (134-434); RBC 4.06 M/mm3 (4.00-5.60); RDW 20.7 % (11.9-15.9); WHITE BLOOD COUNT 6.7 K/mm3 (4.0-10.0)
[2020-10-02] MEDS ORDERED: PANTOPRAZOLE 40 MG TABLET ONE (09:28)
[2020-10-02] MEDS ORDERED: APIXABAN 2.5 MG TABLET ONE (09:28)
[2020-10-02] MEDS ORDERED: metoPROLOL SUCCINATE 25 MG TAB.SR.24H (FP) ONE ×2 (09:28→11:13)
[2020-10-02] MEDS ORDERED: PT OWN MED DRAWER 7, Y5N ONE (09:29)
[2020-10-02] MEDS: APIXABAN 2.5 MG TABLET PO SCH ×2 (09:44→21:34)
[2020-10-02] MEDS: PANTOPRAZOLE 40 MG TABLET PO SCH ×2 (09:45→21:34)
[2020-10-02] MEDS: metoPROLOL SUCCINATE 25 MG TAB.SR.24H (FP) PO SCH ×2 (09:45→21:34)
[2020-10-02] MEDS: ALLOPURINOL 100 MG TABLET (FP) PO SCH (09:45)
[2020-10-02] MEDS ORDERED: metoPROLOL SUCCINATE 25 MG TAB.SR.24H (FP) PO ONE (10:39)
[2020-10-02 15:00] VITALS: BMI 28.9
[2020-10-02] MEDS: SODIUM CHLORIDE 1,000 ML IV SCH (17:39)
[2020-10-02] MEDS ORDERED: MELATONIN 5 MG TABLETS PO ONE (21:04)
[2020-10-02] MEDS: ATORVASTATIN CA 20 MG TABLET (FP) PO SCH (21:34)
[2020-10-03] MEDS: INSULIN SLIDING SCALE (NOVOLOG) 1 VIAL SQ SCH ×2 (06:01→11:08)
[2020-10-03] MEDS: APIXABAN 2.5 MG TABLET PO SCH (09:56)
[2020-10-03] MEDS: PANTOPRAZOLE 40 MG TABLET PO SCH (09:56)
[2020-10-03] MEDS: metoPROLOL SUCCINATE 25 MG TAB.SR.24H (FP) PO SCH (09:57)
[2020-10-03] MEDS: ALLOPURINOL 100 MG TABLET (FP) PO SCH (09:57)
[2020-10-03 13:21] VITALS: BP 141/89; PULSE 99; TEMP 98.2
[2020-10-04] MEDS ORDERED: FUROSEMIDE 40 MG TABLET (FP) PO SCH (10:00)
== END 2020-10-03 15:55 | disposition home or self-care (01) ==
LOC: JER 10:55 → UNDOADMOB 14:10 → INTOOBSV 14:10 → OBSVTOIN 14:10 → JERBED 14:10 → J4W 10-02 14:17
PROVIDERS: ADMIT Internal Medicine; ATTEND Internal Medicine
PROC: 3E0337Z Introduction of Electrolytic and Water Balance Substance into Peripheral Vein, Percutaneous Approach (ICD-10-PCS; principal; 2020-10-02)
DX: I13.0 Hypertensive heart and chronic kidney disease with heart failure and stage 1 through stage 4 chronic kidney disease, or unspecified chronic kidney disease (principal); K57.90 Diverticulosis of intestine, part unspecified, without perforation or abscess without bleeding; E11.22 Type 2 diabetes mellitus with diabetic chronic kidney disease; I48.91 Unspecified atrial fibrillation; R00.2 Palpitations; I50.30 Unspecified diastolic (congestive) heart failure; N18.9 Chronic kidney disease, unspecified; E78.00 Pure hypercholesterolemia, unspecified; Z87.891 Personal history of nicotine dependence; Z86.73 Personal history of transient ischemic attack (TIA), and cerebral infarction without residual deficits; I65.29 Occlusion and stenosis of unspecified carotid artery; I13.10 Hypertensive heart and chronic kidney disease without heart failure, with stage 1 through stage 4 chronic kidney disease, or unspecified chronic kidney disease; J98.4 Other disorders of lung; K29.70 Gastritis, unspecified, without bleeding; K46.9 Unspecified abdominal hernia without obstruction or gangrene; M10.9 Gout, unspecified; K76.0 Fatty (change of) liver, not elsewhere classified; G89.29 Other chronic pain; M54.5 Low back pain; Z79.84 Long term (current) use of oral hypoglycemic drugs; Z79.01 Long term (current) use of anticoagulants
CPT/HCPCS: 36415; 71045-TC-FY; 80048; 80053; 80061; 82550; 82962; 83036; 83721; 83735; 83880; 84100; 84443; 84484; 85025; 85610; 85730; 93005; 93010; 96360; 99285-25; C9803; G0378; U0003; U0005

== ENCOUNTER 2020-10-29 11:55 | Inpatient (IN) | payer OTHER ==
[2020-10-29 12:06] VITALS: BMI 28.8
[2020-10-29 13:35] LABS: BASO % 0.4 % (0-2.0); EOS % 3.2 % (0-4.5); HEMOGLOBIN 9.6 GM/dL (11.7-16.9); LYMPH % 18.5 % (8-40); MEAN CELL VOLUME 74.2 fl (80-96); MONO % 6.9 % (3.8-10.2); PLATELET COUNT 217 K/MM3 (134-434); RBC 4.18 M/mm3 (4.00-5.60); RDW 20.1 % (11.9-15.9); WHITE BLOOD COUNT 8.7 K/mm3 (4.0-10.0)
[2020-10-29 13:41] LABS: INR 1.63 (0.83-1.09); PROTHROMBIN TIME (PATIENT) 19.4 SEC (9.7-13.0)
[2020-10-29 13:54] LABS: CHLORIDE 104 mmol/L (98-107); SODIUM 139 mmol/L (136-145)
[2020-10-29 13:56] LABS: ALBUMIN 3.6 g/dl (3.4-5.0); ANION GAP 7 MMOL/L (8-16); BLOOD UREA NITROGEN 61.9 mg/dL (7-18); CALCIUM 9.2 mg/dL (8.5-10.1); CO2 27 mmol/L (21-32); GLUCOSE,RANDOM 148 mg/dL (74-106)
[2020-10-29 13:59] LABS: CREATININE 3.4 mg/dL (0.55-1.3); SGOT/AST 15 U/L (15-37); SGPT/ALT 21 U/L (13-61)
[2020-10-29 14:00] LABS: PHOSPHOROUS 3.9 mg/dL (2.5-4.9)
[2020-10-29 14:01] LABS: BILIRUBIN,TOTAL 0.6 mg/dL (0.2-1)
[2020-10-29 14:02] LABS: ALK PHOS 179 U/L (45-117)
[2020-10-29 14:27] LABS: URINE APPEARANCE CLEAR; URINE BILIRUBIN NEGATIVE (NEGATIVE); URINE COLOR YELLOW; URINE GLUCOSE (UA) NEGATIVE (NEGATIVE); URINE KETONE NEGATIVE (NEGATIVE); URINE LEUK ESTERASE NEGATIVE (NEGATIVE); URINE NITRITE NEGATIVE (NEGATIVE); URINE PROTEIN TRACE (NEGATIVE); URINE UROBILINOGEN 0.2 mg/dL (0.2-1.0)
[2020-10-29] MEDS ORDERED: SODIUM CHLORIDE 500 ML IV STA (14:34)
[2020-10-29] MEDS ORDERED: ACETAMINOPHEN 325 MG TABLET (FP) PO PRN (15:53)
[2020-10-29] MEDS ORDERED: SODIUM CHLORIDE 1,000 ML IV SCH (16:15)
[2020-10-29] MEDS ORDERED: dilTIAZem HCL 30 MG TABLET ONE (16:41)
[2020-10-29] MEDS: INSULIN SLIDING SCALE (NOVOLOG) 1 VIAL SQ SCH ×2 (17:23→21:14)
[2020-10-29] MEDS ORDERED: PT OWN MED DRAWER 7, Y5N ONE (17:25)
[2020-10-29] MEDS ORDERED: MELATONIN 5 MG TABLETS PO ONE (19:54)
[2020-10-29] MEDS: FINASTERIDE 5 MG TABLET (FP) PO SCH (20:00)
[2020-10-29] MEDS: MAG HYDROX/AL HYDROX/SIMETH 30 ML UNIT-DOSE CUP PO SCH (20:01)
[2020-10-29] MEDS: RIVAROXABAN 15 MG TABLET PO SCH (20:01)
[2020-10-29] MEDS: ATORVASTATIN CA 20 MG TABLET (FP) PO SCH (21:14)
[2020-10-29] MEDS: PANTOPRAZOLE 40 MG TABLET PO SCH (21:14)
[2020-10-30] MEDS: MAG HYDROX/AL HYDROX/SIMETH 30 ML UNIT-DOSE CUP PO SCH ×4 (00:47→18:19)
[2020-10-30] MEDS: INSULIN SLIDING SCALE (NOVOLOG) 1 VIAL SQ SCH ×4 (06:19→22:00)
[2020-10-30 07:44] LABS: BASO % 0.7 % (0-2.0); EOS % 3.3 % (0-4.5); HEMATOCRIT 34.1 % (35.4-49); HEMOGLOBIN 10.5 GM/dL (11.7-16.9); LYMPH % 14.8 % (8-40); MCH 22.9 pg (25.7-33.7); MCHC 30.8 g/dl (32.0-35.9); MEAN CELL VOLUME 74.1 fl (80-96); MEAN PLT VOLUME 8.6 fl (7.5-11.1); MONO % 5.8 % (3.8-10.2); NEUT % 75.4 % (42.8-82.8); PLATELET COUNT 214 K/MM3 (134-434); RDW 20.6 % (11.9-15.9); WHITE BLOOD COUNT 11.4 K/mm3 (4.0-10.0)
[2020-10-30 07:59] LABS: CHLORIDE 107 mmol/L (98-107); SODIUM 142 mmol/L (136-145)
[2020-10-30 08:05] LABS: ANION GAP 9 MMOL/L (8-16); BLOOD UREA NITROGEN 49.1 mg/dL (7-18); CALCIUM 9.7 mg/dL (8.5-10.1); CO2 26 mmol/L (21-32); GLUCOSE,RANDOM 72 mg/dL (74-106)
[2020-10-30 08:06] LABS: MAGNESIUM 1.9 mg/dL (1.8-2.4)
[2020-10-30 08:08] LABS: CREATININE 2.6 mg/dL (0.55-1.3); PHOSPHOROUS 3.2 mg/dL (2.5-4.9)
[2020-10-30 08:09] LABS: CHOLESTEROL 102 mg/dL (50-200); LDL CHOLESTEROL (ONLY SJRH) 44 mg/dL (5-100); TRIGLYCERIDES 88 mg/dL (0-150)
[2020-10-30 08:11] LABS: HDL CHOLESTEROL 40 mg/dL (40-60)
[2020-10-30 08:17] LABS: IRON SERUM 22 ug/dL (50-175); TOTAL IRON BINDING CAPACITY 460 ug/dL (250-450)
[2020-10-30] MEDS ORDERED: METOPROLOL TARTRATE 50 MG TABLET (FP) PO SCH (10:00)
[2020-10-30] MEDS: PANTOPRAZOLE 40 MG TABLET PO SCH ×2 (10:09→22:00)
[2020-10-30] MEDS: ALLOPURINOL 100 MG TABLET (FP) PO SCH (10:10)
[2020-10-30] MEDS: POLYETHYLENE GLYCOL 3350 119 GM BTL PO SCH (10:13)
[2020-10-30] MEDS: FINASTERIDE 5 MG TABLET (FP) PO SCH (10:13)
[2020-10-30] MEDS ORDERED: SODIUM CHLORIDE 500 ML IV STA (13:19)
[2020-10-30 13:49] LABS: ANISOCYTOSIS 3+; MACROCYTOSIS 0; PLATELET ESTIMATE NORMAL; TEAR DROP CELLS 1+
[2020-10-30] MEDS ORDERED: SODIUM CHLORIDE 0.45% 1,000 ML IV SCH (15:30)
[2020-10-30] MEDS: RIVAROXABAN 15 MG TABLET PO SCH (18:19)
[2020-10-30] MEDS ORDERED: MELATONIN 5 MG TABLETS PO PRN (20:53)
[2020-10-30] MEDS: ATORVASTATIN CA 20 MG TABLET (FP) PO SCH (22:00)
[2020-10-31] MEDS: MAG HYDROX/AL HYDROX/SIMETH 30 ML UNIT-DOSE CUP PO SCH ×4 (00:35→17:37)
[2020-10-31] MEDS: INSULIN SLIDING SCALE (NOVOLOG) 1 VIAL SQ SCH ×4 (06:28→21:02)
[2020-10-31 07:41] LABS: BASO % 0.5 % (0-2.0); EOS % 3.5 % (0-4.5); HEMATOCRIT 30.9 % (35.4-49); HEMOGLOBIN 9.7 GM/dL (11.7-16.9); LYMPH % 16.1 % (8-40); MCH 23.3 pg (25.7-33.7); MCHC 31.4 g/dl (32.0-35.9); MEAN CELL VOLUME 74.2 fl (80-96); MEAN PLT VOLUME 8.9 fl (7.5-11.1); MONO % 6.9 % (3.8-10.2); PLATELET COUNT 203 K/MM3 (134-434); RBC 4.17 M/mm3 (4.00-5.60); RDW 20.3 % (11.9-15.9); WHITE BLOOD COUNT 8.9 K/mm3 (4.0-10.0)
[2020-10-31 08:01] LABS: CHLORIDE 104 mmol/L (98-107); SODIUM 137 mmol/L (136-145)
[2020-10-31 08:07] LABS: ALBUMIN 3.6 g/dl (3.4-5.0)
[2020-10-31 08:08] LABS: ANION GAP 7 MMOL/L (8-16); BLOOD UREA NITROGEN 49.3 mg/dL (7-18); CALCIUM 9.1 mg/dL (8.5-10.1); CO2 25 mmol/L (21-32); GLUCOSE,RANDOM 100 mg/dL (74-106)
[2020-10-31 08:09] LABS: MAGNESIUM 1.9 mg/dL (1.8-2.4)
[2020-10-31 08:10] LABS: SGOT/AST 24 U/L (15-37); SGPT/ALT 30 U/L (13-61)
[2020-10-31 08:11] LABS: CREATININE 2.6 mg/dL (0.55-1.3)
[2020-10-31 08:12] LABS: BILIRUBIN,TOTAL 1.6 mg/dL (0.2-1); TOT PROT 6.5 g/dl (6.4-8.2)
[2020-10-31 08:13] LABS: ALK PHOS 185 U/L (45-117)
[2020-10-31] MEDS: FINASTERIDE 5 MG TABLET (FP) PO SCH (09:18)
[2020-10-31] MEDS: ALLOPURINOL 100 MG TABLET (FP) PO SCH (09:18)
[2020-10-31] MEDS: POLYETHYLENE GLYCOL 3350 119 GM BTL PO SCH (09:18)
[2020-10-31] MEDS: PANTOPRAZOLE 40 MG TABLET PO SCH ×2 (09:18→21:00)
[2020-10-31] MEDS: RIVAROXABAN 15 MG TABLET PO SCH (17:52)
[2020-10-31] MEDS: ATORVASTATIN CA 20 MG TABLET (FP) PO SCH (21:00)
[2020-10-31] MEDS: METOPROLOL TARTRATE 50 MG TABLET (FP) PO SCH (21:00)
[2020-11-01] MEDS: MAG HYDROX/AL HYDROX/SIMETH 30 ML UNIT-DOSE CUP PO SCH ×5 (00:30→23:23)
[2020-11-01] MEDS: INSULIN SLIDING SCALE (NOVOLOG) 1 VIAL SQ SCH ×4 (06:00→21:42)
[2020-11-01 07:28] LABS: BASO % 0.8 % (0-2.0); EOS % 2.7 % (0-4.5); HEMATOCRIT 31.9 % (35.4-49); HEMOGLOBIN 9.7 GM/dL (11.7-16.9); LYMPH % 11.6 % (8-40); MCH 22.7 pg (25.7-33.7); MCHC 30.5 g/dl (32.0-35.9); MEAN CELL VOLUME 74.5 fl (80-96); MEAN PLT VOLUME 8.6 fl (7.5-11.1); MONO % 5.4 % (3.8-10.2); NEUT % 79.5 % (42.8-82.8); PLATELET COUNT 189 K/MM3 (134-434); RBC 4.28 M/mm3 (4.00-5.60); RDW 20.2 % (11.9-15.9); WHITE BLOOD COUNT 8.2 K/mm3 (4.0-10.0)
[2020-11-01 08:01] LABS: ALBUMIN 3.4 g/dl (3.4-5.0); CALCIUM 9.1 mg/dL (8.5-10.1)
[2020-11-01 08:02] LABS: BLOOD UREA NITROGEN 41.7 mg/dL (7-18); MAGNESIUM 2.1 mg/dL (1.8-2.4)
[2020-11-01 08:04] LABS: BILIRUBIN,TOTAL 0.8 mg/dL (0.2-1); TOT PROT 6.6 g/dl (6.4-8.2)
[2020-11-01 08:05] LABS: CREATININE 2.3 mg/dL (0.55-1.3)
[2020-11-01] MEDS: FINASTERIDE 5 MG TABLET (FP) PO SCH (09:36)
[2020-11-01] MEDS: METOPROLOL TARTRATE 50 MG TABLET (FP) PO SCH ×2 (09:36→21:40)
[2020-11-01] MEDS: PANTOPRAZOLE 40 MG TABLET PO SCH ×2 (09:36→21:40)
[2020-11-01] MEDS: POLYETHYLENE GLYCOL 3350 119 GM BTL PO SCH (09:37)
[2020-11-01] MEDS: ALLOPURINOL 100 MG TABLET (FP) PO SCH (09:37)
[2020-11-01] MEDS: RIVAROXABAN 15 MG TABLET PO SCH (17:01)
[2020-11-01] MEDS: ATORVASTATIN CA 20 MG TABLET (FP) PO SCH (21:40)
[2020-11-02] MEDS: MAG HYDROX/AL HYDROX/SIMETH 30 ML UNIT-DOSE CUP PO SCH ×3 (05:18→17:18)
[2020-11-02] MEDS: INSULIN SLIDING SCALE (NOVOLOG) 1 VIAL SQ SCH ×4 (06:02→22:15)
[2020-11-02 07:21] LABS: BASO % 0.4 % (0-2.0); EOS % 1.7 % (0-4.5); HEMATOCRIT 31.2 % (35.4-49); HEMOGLOBIN 9.6 GM/dL (11.7-16.9); LYMPH % 9.3 % (8-40); MCH 23.1 pg (25.7-33.7); MCHC 30.6 g/dl (32.0-35.9); MEAN CELL VOLUME 75.5 fl (80-96); MEAN PLT VOLUME 8.8 fl (7.5-11.1); MONO % 5.2 % (3.8-10.2); NEUT % 83.4 % (42.8-82.8); PLATELET COUNT 188 K/MM3 (134-434); RBC 4.14 M/mm3 (4.00-5.60); RDW 20.3 % (11.9-15.9); WHITE BLOOD COUNT 10.7 K/mm3 (4.0-10.0)
[2020-11-02 07:36] LABS: ALBUMIN 3.4 g/dl (3.4-5.0); BLOOD UREA NITROGEN 36.9 mg/dL (7-18); CALCIUM 8.8 mg/dL (8.5-10.1)
[2020-11-02 07:40] LABS: BILIRUBIN,TOTAL 1.3 mg/dL (0.2-1); TOT PROT 6.2 g/dl (6.4-8.2)
[2020-11-02] MEDS: PANTOPRAZOLE 40 MG TABLET PO SCH ×2 (10:12→22:15)
[2020-11-02] MEDS: FINASTERIDE 5 MG TABLET (FP) PO SCH (10:12)
[2020-11-02] MEDS: ALLOPURINOL 100 MG TABLET (FP) PO SCH (10:20)
[2020-11-02] MEDS: POLYETHYLENE GLYCOL 3350 119 GM BTL PO SCH (10:28)
[2020-11-02] MEDS: METOPROLOL TARTRATE 25 MG TABLET (FP) PO SCH ×2 (10:32→22:14)
[2020-11-02] MEDS ORDERED: INSULIN (NOVOLOG) ASPART 100 UNITS/ML 10ML VIAL ONE (11:41)
[2020-11-02] MEDS: METOPROLOL TARTRATE 50 MG TABLET (FP) PO SCH (12:28)
[2020-11-02] MEDS: RIVAROXABAN 15 MG TABLET PO SCH (17:18)
[2020-11-02] MEDS: ATORVASTATIN CA 20 MG TABLET (FP) PO SCH (22:15)
[2020-11-03] MEDS: MAG HYDROX/AL HYDROX/SIMETH 30 ML UNIT-DOSE CUP PO SCH ×3 (00:50→11:38)
[2020-11-03] MEDS: INSULIN SLIDING SCALE (NOVOLOG) 1 VIAL SQ SCH ×2 (06:31→11:35)
[2020-11-03 09:22] VITALS: BP 118/62; PULSE 106; TEMP 98.4
[2020-11-03] MEDS: METOPROLOL TARTRATE 25 MG TABLET (FP) PO SCH (09:26)
[2020-11-03] MEDS: PANTOPRAZOLE 40 MG TABLET PO SCH (09:27)
[2020-11-03] MEDS: ALLOPURINOL 100 MG TABLET (FP) PO SCH (09:27)
[2020-11-03] MEDS: FINASTERIDE 5 MG TABLET (FP) PO SCH (09:27)
[2020-11-03] MEDS: POLYETHYLENE GLYCOL 3350 119 GM BTL PO SCH (09:27)
[2020-11-03] MEDS ORDERED: GLYCERIN 1 RECTAL SUPPOSITORY, ADULT RC ONE (11:00)
[2020-11-03 11:27] LABS: BASO % 0.4 % (0-2.0); EOS % 2.3 % (0-4.5); HEMATOCRIT 33.1 % (35.4-49); HEMOGLOBIN 9.9 GM/dL (11.7-16.9); MCH 22.6 pg (25.7-33.7); MCHC 30.1 g/dl (32.0-35.9); MEAN CELL VOLUME 75.1 fl (80-96); MEAN PLT VOLUME 8.5 fl (7.5-11.1); MONO % 5.1 % (3.8-10.2); NEUT % 81.2 % (42.8-82.8); PLATELET COUNT 205 K/MM3 (134-434); RDW 20.8 % (11.9-15.9)
[2020-11-03 11:51] LABS: CALCIUM 8.8 mg/dL (8.5-10.1)
[2020-11-03 11:52] LABS: ALBUMIN 3.5 g/dl (3.4-5.0); BLOOD UREA NITROGEN 38.5 mg/dL (7-18); MAGNESIUM 2.5 mg/dL (1.8-2.4)
[2020-11-03 11:55] LABS: CREATININE 2.1 mg/dL (0.55-1.3)
[2020-11-03 11:56] LABS: BILIRUBIN,TOTAL 1.6 mg/dL (0.2-1); TOT PROT 6.7 g/dl (6.4-8.2)
[2020-11-03 12:37] LABS: ANISOCYTOSIS 1+; MACROCYTOSIS 0; OVALOCYTE 1+; PLATELET ESTIMATE NORMAL
== END 2020-11-03 15:55 | disposition home or self-care (01) | DRG 292 ==
LOC: JER 11:55 → JERBED 14:34 → J4W 18:45
PROVIDERS: ADMIT Internal Medicine; ATTEND Nurse Practitioner Family
DX: I13.0 Hypertensive heart and chronic kidney disease with heart failure and stage 1 through stage 4 chronic kidney disease, or unspecified chronic kidney disease (principal); I50.32 Chronic diastolic (congestive) heart failure; N17.9 Acute kidney failure, unspecified; E78.5 Hyperlipidemia, unspecified; I65.21 Occlusion and stenosis of right carotid artery; K21.9 Gastro-esophageal reflux disease without esophagitis; N40.0 Benign prostatic hyperplasia without lower urinary tract symptoms; M10.9 Gout, unspecified; R07.89 Other chest pain; K26.9 Duodenal ulcer, unspecified as acute or chronic, without hemorrhage or perforation; R00.1 Bradycardia, unspecified; M51.36 Other intervertebral disc degeneration, lumbar region; R42 Dizziness and giddiness; I48.91 Unspecified atrial fibrillation; E11.22 Type 2 diabetes mellitus with diabetic chronic kidney disease; N18.9 Chronic kidney disease, unspecified; K57.90 Diverticulosis of intestine, part unspecified, without perforation or abscess without bleeding; M54.5 Low back pain; E11.51 Type 2 diabetes mellitus with diabetic peripheral angiopathy without gangrene; Z86.73 Personal history of transient ischemic attack (TIA), and cerebral infarction without residual deficits
CPT/HCPCS: 36415; 71045-TC-FY; 72100-TC-FY; 76775-TC; 80048; 80053; 80061; 81003; 82272; 82550; 82728; 82962; 83036; 83540; 83550; 83721; 83735; 84100; 84443; 84484; 85025; 85610; 87086; 93005; 93010; 97116-GP; 97161-GP; 99285-25; C9803; U0003; U0005

== ENCOUNTER 2022-01-25 08:49 | Day surgery (SDC) | payer OTHER ==
[2022-01-25 11:08] VITALS: TEMP 97.7; BMI 28.0
[2022-01-25] MEDS ORDERED: TRIAMCINOLONE ACETONIDE 40 MG/ML 10 ML VIAL IJ ONE (11:34)
[2022-01-25] MEDS ORDERED: IOHEXOL 180 MG/1 ML ML IJ ONE (11:34)
[2022-01-25] MEDS ORDERED: LIDOCAINE HCL 1% PRESERVATIVE FREE - 30ML VIAL IJ ONE (11:34)
[2022-01-25] MEDS ORDERED: BUPIVACAINE HCL/PF 0.5% (5MG/ML) 10 ML VIAL IJ ONE (11:34)
[2022-01-25 12:19] VITALS: BP 159/78; PULSE 64; RESP 18
== END 2022-01-25 12:26 | disposition home or self-care (01) ==
LOC: JASU-SURG 08:49
PROVIDERS: ATTEND Pain Medicine Pain Medicine
PROC: 3E0U3BZ Introduction of Anesthetic Agent into Joints, Percutaneous Approach (ICD-10-PCS; 2022-01-25)
PROC: 3E0U33Z Introduction of Anti-inflammatory into Joints, Percutaneous Approach (ICD-10-PCS; principal; 2022-01-25 12:00)
DX: M53.3 Sacrococcygeal disorders, not elsewhere classified (principal)
CPT/HCPCS: 76000-TC-FY